=== PATIENT | female | born 1940 | race Caucasian/White ===

== ENCOUNTER 2024-08-05 17:01 | Emergency (ER) | payer MEDICARE, OTHER, SELFPAY ==
[2024-08-05 17:02] VITALS: BP 177/80
[2024-08-05 19:16] VITALS: BP 168/78
--- NOTE | 2024-08-05 22:42 | ED.MUSCINJ ---
HPI-Injury
General
Chief Complaint: Musculo-Skeletal Complaint
Source: patient
Exam Limitations: none
Time Seen by Provider: 08/05/24 18:24
Nursing documentation reviewed up to this point in time: agreed with
History of Present Illness-Injury
Is this injury a work related problem?: No
Is pt an associate of [facility]/[place]?: No
Initial Injury comments:
Patient states she tripped and fell. Denies hitting her head. COmplains of pain to her left wrist. Injury occurred just [employer]
Past History
Past History
ED Past Medical History: HTN, Hypercholesterolemia and Other (Mitral prolapse)
ED Past Surgical History: None
Social History
Tobacco: Non-smoker
Alcohol: None
Drug: None
Personal:
Living: with family
Review of Systems
Review of Systems
Allergies reviewed?: Yes
All Other Systems: ROS reviewed and negative except as documented in HPI and ROS
Constitutional: Reports no symptoms
Musculoskeletal: Reports joint pain (pain to left wrist)
Skin: Reports no symptoms
Neurological: Reports no symptoms
Psychiatric: Reports no symptoms
Musculoskeletal Injury Exam
Musculoskeletal Injury Exam
Left Wrist:
Pain with Movement?: Moderate
Tender to palpation?: Moderate
Soft tissue swelling?: Mild
External deformity and angulation?: None
Joint effusion?: None
Contusion?: None
Hematoma-local bleeding into tissue?: None
Strain- Sprain- Tear (Connective tissue injury)?: Moderate
Crepitus with movement?: No
Joint instability?: No
Malalignment/deformity?: No
Range of motion: Limited
Distal skin color and temperature: normal-warm & good color
Capillary Refill: normal
Normal distal neurovascular exam?: Yes
Peripheral Pulses: radial (left): 3+
Phy Exam
General Physical Exam
General Presentation: well appearing and no apparent distress
General age: appears stated age
General Skin: warm and dry
General Habitus: normal
General Mental: alert
Musculoskeletal Exam
Musculoskeletal Exam: neuro vasc intact
Skin Exam
Skin Exam: normal color, warm/dry and no rash
Psychiatric Exam
Psychiatric Exam: normal mood/affect
Injury Course
Orders/Labs/Results
Orders:
Orders
08/05/24 17:05
Wrist, Left 3 Views CR [CR Wrist - Left Min 3 Views] Urgent
Comment:
Reason For Exam: fall
08/05/24 18:56
Sling Left-Treatment ONCE
Volar Left-Treatment ONCE
*Radiology
Radiology exam reviewed: radiology read reviewed
*Pulse Oximetry
Patient hypoxic: no
*Critical Care Note
Total Time (30-74mins, 75-104mins- exclusive of procedures): Not Applicable
ED Attending Note
-
Portions of this chart may have been created with voice recognition software.� Occasional wrong word or��sound alike� substitutions may have occurred due to the inherent limitations of voice recognition software.
Discharge Plan
Departure
Patient Disposition: Home (Routine Discharge)
Date of Disposition: 08/05/24
Time of Disposition: 18:57
Patient with high blood pressure during this ER visit?: No
Condition: Good
Covid-19: Not Applicable
Discharge Problem:
Fracture of wrist
Instructions: How to Use a Shoulder Sling, Using Cold for Pain, Wrist fracture
Prescriptions:
New
hydrocodone-acetaminophen 5-325 mg tablet
1 tab PO Q4H PRN (Reason: Pain) Qty: 14 0RF
No Action
carvedilol 6.25 MG tablet
6.25 mg PO BID
enalapril maleate 10 MG tablet
10 mg PO DAILY
hydrochlorothiazide 25 MG tablet
25 mg PO DAILY
simvastatin 20 MG tablet
20 mg PO QPM
cholecalciferol (vitamin D3) 2,000 UNIT tablet
2,000 unit PO DAILY
Referrals:
Yuriy Esqueda MD [Active] - Call in 1-3 days for appt
Interventions
Interventions:
*Risk Screen - Suicide Last Done: 08/05/24 17:04
*General Assessment Last Done: 08/05/24 18:58
*Neglect/Abuse Screening Last Done: 08/05/24 17:04
ED- Fall Risk Assessment Last Done: 08/05/24 19:16
*ED COVID-19 Vaccine History Last Done: 08/05/24 18:57
*Nursing Disposition Last Done: 08/05/24 19:16
ED-Musculoskeletal Assessment Last Done: 08/05/24 18:58
Discharge Date and Time
Discharge Date/Time: 08/05/24 19:18
Print Language: YI
== END 2024-08-05 19:18 | disposition home or self-care (01) ==
LOC: EMR 17:01
PROVIDERS: EMERGENCY PHYSICIAN Emergency Medicine; FAMILY PHYSICIAN Pediatrics
DX: S52.592A Other fractures of lower end of left radius, initial encounter for closed fracture (principal); W01.0XXA Fall on same level from slipping, tripping and stumbling without subsequent striking against object, initial encounter; E78.00 Pure hypercholesterolemia, unspecified; I10 Essential (primary) hypertension
CPT/HCPCS: 29125; 99283; 73110

== ENCOUNTER 2024-11-04 15:06 | Emergency (ER) | payer MEDICARE, OTHER, SELFPAY ==
[2024-11-04 15:14] VITALS: BP 143/73
--- NOTE | 2024-11-04 17:14 | ED.GENMED ---
History of Present Illness
General
Chief Complaint: Urinary Symptoms
Time Seen by Provider: 11/04/24 17:06
History of Present Illness
History of Present Illness:
84-year-old female history of CAD, hypertension, hyperlipidemia, diabetes presenting with increased confusion, urinary frequency for the past few days. Family states that patient had a at home urine test that was positive for UTI. Family states
they discussed with patient's PCP office recommended come to the emergency department for further evaluation. Patient denies any fever or chills. Patient reports an episode of nausea and vomiting yesterday while she was at a . Patient
denies chest pain, shortness of breath or cough.
Past History
Past History
ED Past Medical History: HTN, Hypercholesterolemia and Other (Mitral prolapse)
ED Past Surgical History: None
Social History
Tobacco: Non-smoker
Alcohol: None
Drug: None
Personal:
Living: with family
Phy Exam
Physical Exam
Physical Exam:
General: Alert, no acute distress
Head: NCAT
Eyes: clear conjunctiva
Neck: supple
Cardiac: regular rate and rhythm, no murmur
Lungs: clear to auscultation bilaterally. No wheezes, rales, or rhonchi. Speaking full unlabored sentences. No respiratory distress.
Abdomen: soft, nondistended nontender. No rebound or guarding. No CVA tenderness bilaterally
MSK: no lower extremity edema bilaterally. No deformity
Skin: warm, dry
Neuro: Alert and oriented x3. no focal deficits
Course
Orders/Labs/Results
Orders:
Orders
11/04/24 17:24
CBC/With Diff [Complete Blood Count/With Diff] Urgent
CMP [Comprehensive Metabolic Panel] Urgent
Lactic Acid Urgent
UA Reflex to Culture [Urinalysis Reflex To Culture] Urgent
Date Specimen was Collected: 11/04/24
Time Specimen was Collected: 17:19
Urine Microscopic Reflex Cult Urgent
Urine Culture Urgent
MAGDA Source: U
Specimen Description:
Obtained by: Random
Date Specimen was Collected: 11/04/24
Time Specimen was Collected: 17:19
11/04/24 18:34
0.9% Sodium Chloride 1000 ml [Nss] 1,000 ml IV BOLUS
CefTRIAXone [Rocephin] 1,000 mg IV NOW STA
11/04/24 18:38
Potassium Chloride [KCl] 40 meq PO NOW STA
Abnormal Lab Results
11/04/24
17:24
RBC 2.67 L 10^6/uL
(4.20-5.40)
Hgb 7.8 L g/dL
(12.0-16.0)
Hct 24.0 L %
(37.0-47.0)
MCHC 32.5 L g/dL
(33.0-37.0)
Absolute Lymphs (auto) 0.9 L 10^3/uL
(1.2-3.4)
Absolute Monos (auto) 0.7 H 10^3/uL
(0.1-0.6)
Immature Gran % 0.6 H %
(0-0.5)
Lymphocytes % 13.3 L %
(20.5-51.1)
Monocytes % 10.4 H %
(1.7-9.3)
Sodium 132 L mmol/L
(135-145)
Potassium 3.0 L mmol/L
(3.5-5.1)
Chloride 92 L mmol/L
(98-107)
BUN 29 H mg/dl
(7-17)
Glucose 171 H mg/dl
(70-99)
Lactic Acid 2.6 H mmol/L
(0.7-2.0)
Total Bilirubin 1.6 H mg/dl
(0.2-1.3)
Ur Occult Blood Reflex 2+ A
(Negative)
Leukocyte Esterase Rfl 3+ A
(Negative)
Urine WBC (Reflex) 50-60 A /HPF
(0-5)
Urine Bacteria (Reflex) Few A
(Negative)
Urine Albumin (Reflex) 2+ A
(Neg - Trace)
11/04/24 17:24
11/04/24 17:24
Vital Signs
Initial and Last Documented VS:
Initial Vital Signs
Temp Pulse Resp BP Pulse Ox
97.5 F 97 16 143/73 99
11/04/24 15:14 11/04/24 15:14 11/04/24 15:14 11/04/24 15:14 11/04/24 15:14
Last Documented Vital Signs
Temp Pulse Resp BP Pulse Ox
97.5 F 90 18 172/68 97
11/04/24 15:14 11/04/24 19:27 11/04/24 19:27 11/04/24 19:27 11/04/24 19:27
MDM/Problems Addressed
Differential Diagnosis Includes:
UTI, [place], electrolyte abnormality
MDM/Problems Addressed:
Results reviewed. Hemoglobin 7.8 (baseline 10-12). BUN 29. Lactic acid 2.6. Creatinine within normal limits. Mild hypokalemia at 3.0. Discussed results with patient and family at bedside. Patient denies any black or bloody stools. Patient
denies chest pain, shortness of breath or dizziness. Family states that patient has had poor p.o. intake for months. Recommended rectal exam, patient agreeable. Rectal exam shows brown stool, guaiac negative. Suspect elevated lactic acid and BUN
from poor p.o. intake. Will give 1 L normal saline, replete potassium. Offered observation. Patient declines requesting be discharged home.
On reevaluation, hemodynamically stable. Stable for discharge with PCP and hematology follow up. Discussed return precautions. Pt and family expressed verbal understanding.
*Critical Care Note
Total Time (30-74mins, 75-104mins- exclusive of procedures): Not Applicable
ED Attending Note
-
Portions of this chart may have been created with voice recognition software.� Occasional wrong word or��sound alike� substitutions may have occurred due to the inherent limitations of voice recognition software.
Discharge Plan
Departure
Patient Disposition: Home (Routine Discharge)
Date of Disposition: 11/04/24
Time of Disposition: 20:25
Patient with high blood pressure during this ER visit?: Yes
Discharge Problem:
Acute UTI, Anemia
Instructions: Urinary Tract Infection, Adult (DC), Anemia overview, BLOOD PRESSURE
Prescriptions:
New
cephalexin 500 mg capsule
500 mg PO Q8H 7 Days Qty: 21 0RF
No Action
carvedilol 6.25 MG tablet
6.25 mg PO BID
enalapril maleate 10 MG tablet
10 mg PO DAILY
hydrochlorothiazide 25 MG tablet
25 mg PO DAILY
simvastatin 20 MG tablet
20 mg PO QPM
cholecalciferol (vitamin D3) 2,000 UNIT tablet
2,000 unit PO DAILY
hydrocodone-acetaminophen 5-325 mg tablet
1 tab PO Q4H PRN (Reason: Pain) Qty: 14 0RF
Referrals:
Jenifer Raza MD [Family Provider] -
Von Rizvi MD [Active] -
Activity Restrictions/Additional Instructions:
Follow-up with primary care doctor and hematology this week
Take Keflex 3 times a day for the next 7 days
Return to the emergency department for fever, persistent vomiting, shortness of breath, black/bloody stools or new/worsening symptoms
Interventions
Interventions:
*General Assessment Last Done: 11/04/24 16:45
*Nursing Disposition Last Done: 11/04/24 20:29
ED-Female Genitourinary Assessment Last Done: 11/04/24 16:45
Discharge Date and Time
Discharge Date/Time: 11/04/24 21:25
Print Language: SWEDISH
[2024-11-04 17:34] VITALS: BP 170/78
[2024-11-04 17:40] LABS: % Basophils 0.3 % (0-2); % Eosinophils 1.1 % (0-6); % Immature Granulocytes 0.6 % (0-0.5); % Lymphocytes 13.3 % (20.5-51.1); % Monocytes 10.4 % (1.7-9.3); % Neutrophils 74.3 % (42.2-75.2); Absolute Eosinophils 0.1 10^3/uL (0-0.7); Absolute Lymphocytes 0.9 10^3/uL (1.2-3.4); Absolute Monocytes 0.7 10^3/uL (0.1-0.6); Absolute Neutrophils 5.2 10^3/uL (1.4-6.5); Hemoglobin 7.8 g/dL (12.0-16.0); Mean Corp Hgb Conc. 32.5 g/dL (33.0-37.0); Mean Corpuscular Hgb 29.2 pg (27.0-31.0); Mean Corpuscular Volume 89.9 fL (81.0-99.0); Mean Platelet Volume 8.4 fL (7.4-10.4); Nucleated Red Blood Cells % 0 %; Platelet Count 176 10^3/uL (130-400); Red Blood Cell Count 2.67 10^6/uL (4.20-5.40); Red Cell Dist. Width 14.2 % (11.5-14.5); Urine Albumin 2+ (Neg - Trace); Urine Bilirubin Negative (Negative); Urine Character Slightly Cloudy (Clear); Urine Color Yellow; Urine Glucose Negative (Negative); Urine Ketone Negative (Negative); Urine Leukocyte 3+ (Negative); Urine Nitrite Negative (Negative); Urine Occult Blood 2+ (Negative); Urine Specific Gravity 1.015 (<1.030); Urine Urobilinogen 1+ (Neg - 1+)
[2024-11-04 17:51] LABS: Lactic Acid 2.6 mmol/L (0.7-2.0)
[2024-11-04 18:00] LABS: ALT (SGPT) 13 U/L (0-35); AST (SGOT) 20 U/L (14-36); Alkaline Phosphatase 107 U/L (38-126); Blood Urea Nitrogen 29 mg/dl (7-17); Calcium 9.2 mg/dl (8.4-10.2); Carbon Dioxide 27 mmol/L (22-30); Chloride 92 mmol/L (98-107); Glucose 171 mg/dl (70-99); Sodium 132 mmol/L (135-145); Total Bilirubin 1.6 mg/dl (0.2-1.3); Total Protein 6.3 g/dl (6.3-8.2); eGFR > 60.00
[2024-11-04 18:05] LABS: Urine Squamous Cell 0-2 /LPF (Few)
[2024-11-04 18:06] LABS: Urine Bacteria Few (Negative); Urine Red Blood Cell 0-2 /HPF (0-2); Urine White Cell 50-60 /HPF (0-5)
[2024-11-04] MEDS: KCL 40 MEQ PO (18:53)
[2024-11-04] MEDS: NSS 1000 IV (18:53)
[2024-11-04] MEDS: ROCEPHIN 1000 MG IV (18:54)
[2024-11-04 19:27] VITALS: BP 172/68
== END 2024-11-04 21:25 | disposition home or self-care (01) ==
LOC: EMR 15:06
PROVIDERS: EMERGENCY PHYSICIAN Emergency Medicine; FAMILY PHYSICIAN Family Medicine
DX: N39.0 Urinary tract infection, site not specified (principal); D64.9 Anemia, unspecified; E87.6 Hypokalemia; E78.00 Pure hypercholesterolemia, unspecified; I10 Essential (primary) hypertension; E11.9 Type 2 diabetes mellitus without complications; I25.10 Atherosclerotic heart disease of native coronary artery without angina pectoris
CPT/HCPCS: 99284; 96374; 96361; 80053; 81003; 81015; 83605; 85025; 87077; 87086; 87186

== ENCOUNTER → 2024-11-20 14:32 | Outpatient (REF) | payer MEDICARE, OTHER, SELFPAY | LOC: RAD 14:32 | PROVIDERS: ATTENDING PHYSICIAN Family Medicine | DX: D50.9 Iron deficiency anemia, unspecified (principal); R11.0 Nausea | CPT/HCPCS: 74177; Q9967 ==

== ENCOUNTER 2024-12-14 21:50 | Inpatient (IN) | payer MEDICARE, OTHER, SELFPAY ==
[2024-12-14 18:33] VITALS: BP 161/84
[2024-12-14 18:57] LABS: % Basophils 0.1 % (0-2); % Immature Granulocytes 0.6 % (0-0.5); % Lymphocytes 3.4 % (20.5-51.1); % Monocytes 2.5 % (1.7-9.3); % Neutrophils 93.4 % (42.2-75.2); Absolute Immature Granulocytes 0.1 10^3/uL (0-0.05); Absolute Lymphocytes 0.5 10^3/uL (1.2-3.4); Absolute Monocytes 0.4 10^3/uL (0.1-0.6); Absolute Neutrophils 13.1 10^3/uL (1.4-6.5); Hematocrit 35.5 % (37.0-47.0); Hemoglobin 12.3 g/dL (12.0-16.0); Mean Corp Hgb Conc. 34.6 g/dL (33.0-37.0); Mean Corpuscular Hgb 29.9 pg (27.0-31.0); Mean Corpuscular Volume 86.4 fL (81.0-99.0); Mean Platelet Volume 8.8 fL (7.4-10.4); Nucleated Red Blood Cells % 0 %; Platelet Count 155 10^3/uL (130-400); Red Blood Cell Count 4.11 10^6/uL (4.20-5.40); Red Cell Dist. Width 13.8 % (11.5-14.5); White Blood Cell Count 14.1 10^3/uL (4.8-10.8)
[2024-12-14 19:07] LABS: Urine Albumin 1+ (Neg - Trace); Urine Bilirubin Negative (Negative); Urine Character Clear (Clear); Urine Color Yellow; Urine Glucose 4+ (Negative); Urine Ketone Negative (Negative); Urine Leukocyte Negative (Negative); Urine Nitrite Negative (Negative); Urine Occult Blood 4+ (Negative); Urine Urobilinogen Negative (Neg - 1+)
[2024-12-14 19:16] LABS: Blood Urea Nitrogen 33 mg/dl (7-17); Calcium 9.3 mg/dl (8.4-10.2); Carbon Dioxide 16 mmol/L (22-30); Chloride 81 mmol/L (98-107); Sodium 119 mmol/L (135-145); Urine Squamous Cell 0-2 /LPF (Few); eGFR 55.21
[2024-12-14 19:18] LABS: Urine Bacteria Moderate (Negative); Urine White Cell 80-90 /HPF (0-5)
[2024-12-14 19:35] LABS: Glucose 1247 mg/dl (70-99)
[2024-12-14 20:04] VITALS: BP 148/81
[2024-12-14 20:21] VITALS: BMI 16.9
--- NOTE | 2024-12-14 20:24 | ED.GENMED ---
History of Present Illness
<Janelle Russell NP - Last Filed: 12/16/24 17:06>
General
Chief Complaint: Musculo-Skeletal Complaint
Source: patient, spouse and family
Exam Limitations: none
Time Seen by Provider: 12/14/24 19:53
Nursing documentation reviewed up to this point in time: agreed with
History of Present Illness
History of Present Illness:
Patient to ED wtih complaint of worsening muscle cramps involving hands. Spouse reports symptoms started last PM. He also reports increased thirst and urination. Family states she had blood work at the end of october which revealed hemaglobin of
7.8 Placed on Prednisne 50mg daily. No other changes to her medications. Seen by PCP this week for urine symptoms. Neg for UTI at that time. She returned to PCP today for evaluation of cramping to her hands and was sent to ED for eval.
Past History
<Janelle Russell NP - Last Filed: 12/16/24 17:06>
Past History
ED Past Medical History: HTN, Hypercholesterolemia and Other (Mitral prolapse)
ED Past Surgical History: None
Social History
Tobacco: Non-smoker
Alcohol: None
Drug: None
Personal:
Living: with family
Review of Systems
<Janelle Russell NP - Last Filed: 12/16/24 17:06>
Review of Systems
Allergies reviewed?: Yes
All Other Systems: ROS reviewed and negative except as documented in HPI and ROS
Constitutional: Reports no symptoms
EENT: Reports no symptoms
Respiratory: Reports no symptoms
Cardiac: Reports no symptoms
ABD/GI: Reports no symptoms
: Reports frequency and urgency
Musculoskeletal: Reports other (cramping of both hands)
Skin: Reports no symptoms
Neurological: Reports weakness
Psychiatric: Reports no symptoms
Phy Exam
<Janelle Russell WIRE BOUND BOX MACHINE OPERATOR - Last Filed: 12/16/24 17:06>
General Physical Exam
General Presentation: moderate distress
General age: appears stated age
General Skin: warm and dry
General Habitus: normal
General Mental: alert
General Hydration: dry mucous membranes and poor skin turgor
Cardiovascular Exam
Cardiovascular Exam: regular rate/rhythm and no edema
Pulmonary Exam
Pulmonary Exam: lungs clear and no respiratory distress
Neurological Exam
Neurological Exam: alert, oriented x3, CN II-XII intact, no sensory deficits and speech normal
Musculoskeletal Exam
Musculoskeletal Exam: full ROM and other (muscle cramping to bilateral hands)
Skin Exam
Skin Exam: normal color, warm/dry and no rash
Psychiatric Exam
Psychiatric Exam: normal mood/affect
Course
<Janelle Russell WIRE BOUND BOX MACHINE OPERATOR - Last Filed: 12/16/24 17:06>
Orders/Labs/Results
Orders:
Orders
12/14/24 18:23
Wrist, Right 3 Views [CR Wrist - Right Min 3 Views] Urgent
Comment:
Reason For Exam: pain
12/14/24 18:50
B-Hydroxybutyrate Urgent
Comment: ADD ON
Basic Metabolic Panel Urgent
Complete Blood Count/With Diff Urgent
Urinalysis Reflex To Culture Urgent
Date Specimen was Collected: 12/14/24
Time Specimen was Collected: 18:40
Urine Microscopic Reflex Cult Urgent
Urine Culture Urgent
MAGDA Source: U
Specimen Description:
Date Specimen was Collected: 12/14/24
Time Specimen was Collected: 18:40
12/14/24 20:15
0.9% Sodium Chloride 1000 ml [Nss] 1,000 ml IV BOLUS
CR Chest Portable - 1 View Urgent
Comment:
Reason For Exam: dka icu
Reason Study Needs to be Portable: Patient Unstable
12/14/24 20:23
Bedside Glucose- Treatment Q1H
IV Insert/Care/Rem.- Treatment PRN
12/14/24 20:34
Cefepime HCl [Maxipime] 1,000 mg IV NOW STA
12/14/24 20:46
Comprehensive Metabolic Panel Stat
Comment: ADD ON
12/14/24 21:30
Admit/Transfer Patient As Directed
Co-Sign Provider:
Level of Care: Inpatient admission
Assign to:: ICU
Physician / Group: Michel Lozano
Diagnosis: hyperglycemia, UTI
Reason for Hospitalization: hyperglycemia, UTI
Expected length of stay greater than two midnights?: Yes
ELOS- Estimated Length of Stay in days: 3
I certify the patient meets the requirements for IP care: Yes
PRN Pain Medication Management As Directed
May give lesser potent ordered pain med per pt: Yes
preference::
Protocol:: Medication orders for pain may be administered in a
manner that supports deferring to patient preference
when the pt is:
- Requesting an ordered lesser potent pain medication.
Least to most potent pain medications are defined
as: acetaminophen < NSAID < tramadol < opioids
(morphine, oxycodone, hydromorphone).
- Requesting a lesser dose of the same medication IF
ORDERED.
- Requesting a less intrusive route of administration
if both routes are prescribed by the provider (PO <
IV).
12/14/24 21:32
Code Status As Directed
Resuscitation Status: Full Code
12/14/24 22:00
Flush (0.9% Sodium Chloride) [Flush (Nss)] See Dose Instructions IV PER PROTOCOL
12/14/24 22:42
Atorvastatin [Lipitor] 40 mg PO HS
Carvedilol [Coreg] 6.25 mg PO HS
KCl 20 Meq/0.9%Sodchl 1000 ml [NSS with KCL 20 MEQ] 20 meq in 1,000 ml IV 150 mls/hr
Nortriptyline [Pamelor] 20 mg PO HS
Reg Insulin 100 Units/100 ml [Novolin R Insulin Infusion] 100 units in 100 ml IV PER PROTOCOL
Currently infusing. Continue current dose and titrate:: Yes
12/14/24 22:42
Diabetes Management by Nurse Practitioner Routine
Consulting Provider: Rachell Serrano
Was provider already notified?: No
Reason for Consult: Insulin Recommendation
Date consulting provider notified: 12/15/24
Time consulting provider notified: 07:22
Notified:: Provider
Activity As Directed
Activity Level: Out of Bed-Early Mobility
Bedside Glucose Monitoring As Directed
Frequency: AC&HS
Intake/ Output As Directed
Frequency: Per unit guidelines
Notify MD As Directed
Notify physician if: Nurse to contact provider when glucose reaches 250 to obtain orders for D5 0.45 NaCl
Vital Signs As Directed
Frequency: Per unit guidelines
Weight As Directed
Frequency: Once
Comment: on admission
DX Deep Vein Thrombosis Video Routine
12/14/24 23:18
Basic Metabolic Panel Q2H
12/15/24 00:00
Heparin 5,000 units SC Q8
12/15/24 01:00
Basic Metabolic Panel Q2H
12/15/24 05:21
Complete Blood Count/No Diff IN AM
12/15/24 08:00
Amlodipine [Norvasc] 5 mg PO DAILY
Aspirin Low Dose EC [Aspir Low (Enteric Coated)] 81 mg PO DAILY
Cholecalciferol (Vitamin D3) [VITAMIN D3 (cholecalciferol)] 25 mcg PO DAILY
Cyanocobalamin [Vitamin B-12] 1,000 mcg PO DAILY
Furosemide [Lasix] 20 mg PO MoWeFr@0800
Olmesartan Medoxomil [Benicar] 20 mg PO DAILY
12/15/24 12:00
Prednisone [Deltasone] 40 mg PO NOON
12/15/24 20:00
Cefepime HCl [Maxipime] 500 mg IV Q24H
Abnormal Lab Results
12/14/24 12/14/24 12/14/24
18:50 20:46 21:00
WBC 14.1 H 10^3/uL
(4.8-10.8)
RBC 4.11 L 10^6/uL
(4.20-5.40)
Hct 35.5 L %
(37.0-47.0)
Abs Immat Gran (auto) 0.1 H 10^3/uL
(0-0.05)
Absolute Neuts (auto) 13.1 H 10^3/uL
(1.4-6.5)
Absolute Lymphs (auto) 0.5 L 10^3/uL
(1.2-3.4)
Immature Gran % 0.6 H %
(0-0.5)
Neutrophils % 93.4 H %
(42.2-75.2)
Lymphocytes % 3.4 L %
(20.5-51.1)
Sodium 119 L* mmol/L 118 L* mmol/L
(135-145) (135-145)
Chloride 81 L mmol/L 83 L mmol/L
(98-107) (98-107)
Carbon Dioxide 16 L mmol/L 20 L mmol/L
(22-30) (22-30)
BUN 33 H mg/dl 34 H mg/dl
(7-17) (7-17)
Glucose 1247 H* mg/dl 1141 H* mg/dl
(70-99) (70-99)
Total Bilirubin 1.8 H mg/dl
(0.2-1.3)
Alkaline Phosphatase 129 H U/L
(38-126)
Ur Occult Blood Reflex 4+ A
(Negative)
Urine RBC 7-10 A /HPF
(0-2)
Urine WBC (Reflex) 80-90 A /HPF
(0-5)
Urine Bacteria (Reflex) Moderate A
(Negative)
Urine Glucose 4+ A
(Negative)
Urine Albumin (Reflex) 1+ A
(Neg - Trace)
B-Hydroxybutyrate 0.73 H mmol/L
(0.02-0.27)
POC Glucose > 600 H* mg/dl
(70-99)
12/14/24
21:39
WBC
RBC
Hct
Abs Immat Gran (auto)
Absolute Neuts (auto)
Absolute Lymphs (auto)
Immature Gran %
Neutrophils %
Lymphocytes %
Sodium
Chloride
Carbon Dioxide
BUN
Glucose
Total Bilirubin
Alkaline Phosphatase
Ur Occult Blood Reflex
Urine RBC
Urine WBC (Reflex)
Urine Bacteria (Reflex)
Urine Glucose
Urine Albumin (Reflex)
B-Hydroxybutyrate
POC Glucose > 600 H* mg/dl
(70-99)
12/14/24 18:50
12/14/24 20:54
Vital Signs
Initial and Last Documented VS:
Initial Vital Signs
Temp Pulse Resp BP Pulse Ox
97.5 F 89 18 161/84 98
12/14/24 18:33 12/14/24 18:33 12/14/24 18:33 12/14/24 18:33 12/14/24 18:33
Last Documented Vital Signs
Temp Pulse Resp BP Pulse Ox
97.6 F 87 17 108/51 96
12/16/24 14:45 12/16/24 14:45 12/16/24 14:45 12/16/24 14:45 12/16/24 14:45
<Holger Reid, DO - Last Filed: 12/14/24 20:28>
Orders/Labs/Results
Orders:
Orders
12/14/24 18:23
Wrist, Right 3 Views [CR Wrist - Right Min 3 Views] Urgent
Comment:
Reason For Exam: pain
12/14/24 18:50
B-Hydroxybutyrate Urgent
Comment: ADD ON
Basic Metabolic Panel Urgent
Complete Blood Count/With Diff Urgent
Urinalysis Reflex To Culture Urgent
Date Specimen was Collected: 12/14/24
Time Specimen was Collected: 18:40
Urine Microscopic Reflex Cult Urgent
Urine Culture Urgent
MAGDA Source: U
Specimen Description:
Date Specimen was Collected: 12/14/24
Time Specimen was Collected: 18:40
12/14/24 20:15
0.9% Sodium Chloride 1000 ml [Nss] 1,000 ml IV BOLUS
CR Chest Portable - 1 View Urgent
Comment:
Reason For Exam: dka icu
Reason Study Needs to be Portable: Patient Unstable
12/14/24 20:23
Bedside Glucose- Treatment Q1H
IV Insert/Care/Rem.- Treatment PRN
12/14/24 20:34
Cefepime HCl [Maxipime] 1,000 mg IV NOW STA
12/14/24 20:46
Comprehensive Metabolic Panel Stat
Comment: ADD ON
12/14/24 21:30
Admit/Transfer Patient As Directed
Co-Sign Provider:
Level of Care: Inpatient admission
Assign to:: ICU
Physician / Group: Michel Lozano
Diagnosis: hyperglycemia, UTI
Reason for Hospitalization: hyperglycemia, UTI
Expected length of stay greater than two midnights?: Yes
ELOS- Estimated Length of Stay in days: 3
I certify the patient meets the requirements for IP care: Yes
PRN Pain Medication Management As Directed
May give lesser potent ordered pain med per pt: Yes
preference::
Protocol:: Medication orders for pain may be administered in a
manner that supports deferring to patient preference
when the pt is:
- Requesting an ordered lesser potent pain medication.
Least to most potent pain medications are defined
as: acetaminophen < NSAID < tramadol < opioids
(morphine, oxycodone, hydromorphone).
- Requesting a lesser dose of the same medication IF
ORDERED.
- Requesting a less intrusive route of administration
if both routes are prescribed by the provider (PO <
IV).
12/14/24 21:32
Code Status As Directed
Resuscitation Status: Full Code
12/14/24 22:00
Flush (0.9% Sodium Chloride) [Flush (Nss)] See Dose Instructions IV PER PROTOCOL
12/14/24 22:42
Atorvastatin [Lipitor] 40 mg PO HS
Carvedilol [Coreg] 6.25 mg PO HS
KCl 20 Meq/0.9%Sodchl 1000 ml [NSS with KCL 20 MEQ] 20 meq in 1,000 ml IV 150 mls/hr
Nortriptyline [Pamelor] 20 mg PO HS
Reg Insulin 100 Units/100 ml [Novolin R Insulin Infusion] 100 units in 100 ml IV PER PROTOCOL
Currently infusing. Continue current dose and titrate:: Yes
12/14/24 22:42
Diabetes Management by Nurse Practitioner Routine
Consulting Provider: Rachell Serrano
Was provider already notified?: No
Reason for Consult: Insulin Recommendation
Date consulting provider notified: 12/15/24
Time consulting provider notified: 07:22
Notified:: Provider
Activity As Directed
Activity Level: Out of Bed-Early Mobility
Bedside Glucose Monitoring As Directed
Frequency: AC&HS
Intake/ Output As Directed
Frequency: Per unit guidelines
Notify MD As Directed
Notify physician if: Nurse to contact provider when glucose reaches 250 to obtain orders for D5 0.45 NaCl
Vital Signs As Directed
Frequency: Per unit guidelines
Weight As Directed
Frequency: Once
Comment: on admission
DX Deep Vein Thrombosis Video Routine
12/14/24 23:18
Basic Metabolic Panel Q2H
12/15/24 00:00
Heparin 5,000 units SC Q8
12/15/24 01:00
Basic Metabolic Panel Q2H
12/15/24 05:21
Complete Blood Count/No Diff IN AM
12/15/24 08:00
Amlodipine [Norvasc] 5 mg PO DAILY
Aspirin Low Dose EC [Aspir Low (Enteric Coated)] 81 mg PO DAILY
Cholecalciferol (Vitamin D3) [VITAMIN D3 (cholecalciferol)] 25 mcg PO DAILY
Cyanocobalamin [Vitamin B-12] 1,000 mcg PO DAILY
Furosemide [Lasix] 20 mg PO MoWeFr@0800
Olmesartan Medoxomil [Benicar] 20 mg PO DAILY
12/15/24 12:00
Prednisone [Deltasone] 40 mg PO NOON
12/15/24 20:00
Cefepime HCl [Maxipime] 500 mg IV Q24H
Abnormal Lab Results
12/14/24 12/14/24 12/14/24
18:50 20:46 21:00
WBC 14.1 H 10^3/uL
(4.8-10.8)
RBC 4.11 L 10^6/uL
(4.20-5.40)
Hct 35.5 L %
(37.0-47.0)
Abs Immat Gran (auto) 0.1 H 10^3/uL
(0-0.05)
Absolute Neuts (auto) 13.1 H 10^3/uL
(1.4-6.5)
Absolute Lymphs (auto) 0.5 L 10^3/uL
(1.2-3.4)
Immature Gran % 0.6 H %
(0-0.5)
Neutrophils % 93.4 H %
(42.2-75.2)
Lymphocytes % 3.4 L %
(20.5-51.1)
Sodium 119 L* mmol/L 118 L* mmol/L
(135-145) (135-145)
Chloride 81 L mmol/L 83 L mmol/L
(98-107) (98-107)
Carbon Dioxide 16 L mmol/L 20 L mmol/L
(22-30) (22-30)
BUN 33 H mg/dl 34 H mg/dl
(7-17) (7-17)
Glucose 1247 H* mg/dl 1141 H* mg/dl
(70-99) (70-99)
Total Bilirubin 1.8 H mg/dl
(0.2-1.3)
Alkaline Phosphatase 129 H U/L
(38-126)
Ur Occult Blood Reflex 4+ A
(Negative)
Urine RBC 7-10 A /HPF
(0-2)
Urine WBC (Reflex) 80-90 A /HPF
(0-5)
Urine Bacteria (Reflex) Moderate A
(Negative)
Urine Glucose 4+ A
(Negative)
Urine Albumin (Reflex) 1+ A
(Neg - Trace)
B-Hydroxybutyrate 0.73 H mmol/L
(0.02-0.27)
POC Glucose > 600 H* mg/dl
(70-99)
12/14/24
21:39
WBC
RBC
Hct
Abs Immat Gran (auto)
Absolute Neuts (auto)
Absolute Lymphs (auto)
Immature Gran %
Neutrophils %
Lymphocytes %
Sodium
Chloride
Carbon Dioxide
BUN
Glucose
Total Bilirubin
Alkaline Phosphatase
Ur Occult Blood Reflex
Urine RBC
Urine WBC (Reflex)
Urine Bacteria (Reflex)
Urine Glucose
Urine Albumin (Reflex)
B-Hydroxybutyrate
POC Glucose > 600 H* mg/dl
(70-99)
12/14/24 18:50
12/14/24 20:54
Vital Signs
Initial and Last Documented VS:
Initial Vital Signs
Temp Pulse Resp BP Pulse Ox
97.5 F 89 18 161/84 98
12/14/24 18:33 12/14/24 18:33 12/14/24 18:33 12/14/24 18:33 12/14/24 18:33
Last Documented Vital Signs
Temp Pulse Resp BP Pulse Ox
97.6 F 87 17 108/51 96
12/16/24 14:45 12/16/24 14:45 12/16/24 14:45 12/16/24 14:45 12/16/24 14:45
<Holger Reid, DO - Last Filed: 12/14/24 20:28>
*Critical Care Note
Total Time (30-74mins, 75-104mins- exclusive of procedures): 32
<Janelle Russell NP - Last Filed: 12/16/24 17:06>
Update Note
Update Note:
Labs reviwed. Na 119, glucose 1247. Currently taking prednisone 50mg daily for report of low Hgb. Hgb tonight 12.7. History of NIDDM, takes metfomin daily. Placed on Insulin infusion in ED. UA results reviewed, +UTI. Antibiotic started in ED.
Case discussed with Dr. Reid who also evaluated this patient. SHe will be admitted to hospitalist service.
ED Attending Note
<Janelle Russell NP - Last Filed: 12/16/24 17:06>
-
Portions of this chart may have been created with voice recognition software.� Occasional wrong word or��sound alike� substitutions may have occurred due to the inherent limitations of voice recognition software.
<Holger Reid, - Last Filed: 12/14/24 20:28>
ED Attending Note
Patient seen and examined by attending physician: Yes
I performed the substantive portion of visit, reviewed & personally made and approve the management plan that is documented in note by myself or DELL.: Yes
ED Attending Note:
Seen with WIRE BOUND BOX MACHINE OPERATOR examined independently 84-year-old female type II diabetic on metformin, prednisone 50 [address] day [address] Bustillos for anemia presents with fatigue polydipsia polyuria looks to have significant hyperglycemia here with relatively normal mental
status abnormal sodium-in the setting of hyperglycemia
Plan will be urinalysis beta hydroxybutyrate chest x-ray IV fluids IV insulin chest x-ray will require admission
Discharge Plan
Departure
Patient Disposition: Admit
Date of Disposition: 12/14/24
Time of Disposition: 20:37
Presentation/result/management discussed w/ accepting MD/DO: Hospitalist
Condition: Fair
Discharge Problem:
Acute hyperglycemia, Acute hyponatremia, Acute UTI
Interventions
Interventions:
*Risk Screen - Suicide Last Done: 12/14/24 23:32
*General Assessment Last Done: 12/14/24 20:28
*Neglect/Abuse Screening Last Done: 12/14/24 20:00
*ED- Fall Risk Assessment Last Done: 12/14/24 20:28
*ED COVID-19 Vaccine History Last Done: 12/14/24 20:28
*Nursing Disposition Last Done: 12/14/24 22:45
ED-Musculoskeletal Assessment Last Done: 12/14/24 21:11
ED- Neurological Assessment Last Done: 12/14/24 20:28
ED-Skin Assessment Last Done: 12/14/24 20:00
Discharge Date and Time
Discharge Date/Time: 12/14/24 22:45
[2024-12-14] MEDS: NSS 1000 IV (20:36)
--- NOTE | 2024-12-14 20:36 | HPS.HSE ---
Family Physician
-
Family Physician: Jenifer Raza
Chief Complaint
-
worsening muscle cramps
History of Present Illness
Patient is an 84-year-old female with past medical history significant for hypertension, hyperlipidemia, DM II, ASCVD and iron deficiency anemia who presented to [facility] ED for evaluation of worsening muscle cramps especially in hands. Patient went to
primary care provider today for muscle cramping especially in the bilateral hands. Patient spouse and daughter at bedside to assist with HPI. Patient has had increased thirst and urination for approximately 1 week as well, UA negative last week for
UTI. Patient started seeing Dr. Bustillos for anemia and she was started on prednisone 50mg daily. Denies any fevers, chills, cough, shortness of breath, nausea, vomiting, constipation or diarrhea.
Medical History
Past Medical History
Past Medical History: Reports Other
Additional Past Medical History:
hypertension
hyperlipidemia
DM II
ASCVD
iron deficiency anemia
Past Surgical History: Reports Other
Additional Past Surgical History:
cataract surgery
hemorrhoid surgery
Social History
Tobacco: Non-smoker
Alcohol: Occasional
Drug: None
Personal:
Living: With Family
Family History
Family History: Not pertinent
Allergies / Home Medications
Allergies reflects when Allergies were last updated in [employer].
Home Medications with original date entered in [employer]
Allergy/Medication List:
Allergies
Allergy/AdvReac Type Severity Reaction Status Date / Time
tramadol HCl [From Ultracet] Allergy Nausea Verified 12/14/24 18:32
Home Medications
carvedilol 6.25 mg tablet 6.25 mg PO HS 11/14/10
amlodipine 5 mg tablet 5 mg PO DAILY 12/14/24
aspirin 81 mg tablet,delayed release 81 mg PO DAILY 12/14/24
atorvastatin 40 mg tablet 40 mg PO HS 12/14/24
cholecalciferol (vitamin D3) 25 mcg (1,000 unit) tablet (Vitamin D3) 25 mcg PO DAILY 12/14/24
cyanocobalamin (vitamin B-12) 1,000 mcg tablet 1,000 mcg PO DAILY 12/14/24
furosemide 20 mg tablet 20 mg PO MOWEFR 12/14/24
metformin 500 mg tablet 500 mg PO DAILY 12/14/24
nortriptyline 10 mg capsule 20 mg PO HS 12/14/24
olmesartan 20 mg tablet 20 mg PO DAILY 12/14/24
prednisone 20 mg tablet 50 mg PO NOON 12/14/24
Review of Systems
-
History Source: Patient
Constitutional: Reports Other (bilateral hand cramping )
EENT: Reports No Symptoms
Respiratory: Reports No Symptoms
Cardiac: Reports No Symptoms
Abdomen/GI: Reports No Symptoms
: Reports Frequency and Urgency
Musculoskeletal: Reports Other (muscle cramping, bilateral hand cramping )
Skin: Reports No Symptoms
Neurological: Reports No Symptoms
Endocrine: Reports No Symptoms
Hematologic/Lymphatic: Reports No Symptoms
Psych: Reports No Symptoms
Physical Exam
Vital Signs
Vital Signs
Temp Pulse Resp BP Pulse Ox
97.5 F 89 18 161/84 98
12/14/24 18:33 12/14/24 18:33 12/14/24 18:33 12/14/24 18:33 12/14/24 18:33
Physical Exam
General: Well Developed, Well Nourished, No Apparent Distress, Comfortable, Conversant and Appears Chronically Ill
HEENT: NormoCephalic, Moist mucous membranes, Atraumatic, [place] Conjunctivae, Nose Appears Normal and Ears Appear Normal
Respiratory: Clear and Non Labored Respirations
Cardiac: S1/S2 and Regular Rhythm
Breast: Deferred by me
GI: Soft, Non Tender, Non Distended and Normal Bowel Sounds
Rectal: Deferred by Provider
Genito-urinary: Clear Urine
Musculoskeletal: No Clubbing, No Cyanosis and No Edema
Skin: Warm and IV/Catheter Site
Neuro: Awake, Alert, AO x 3 and Nonfocal/grossly intact
Psych: Calm and Intact Judgment/Insight
Laboratory Results
-
12/14/24 18:50
Laboratory Results
Total Bilirubin Cancelled 12/14/24 18:50
AST Cancelled 12/14/24 18:50
ALT Cancelled 12/14/24 18:50
Alkaline Phosphatase Cancelled 12/14/24 18:50
Data Reviewed
-
Diagnostic Radiology: Report Reviewed by me (R wrist: No acute osseous abnormality. Mild degenerative changes of the radiocarpal joint with chondrocalcinosis.)
Lab Data: Labs Reviewed by me (WBC 14.1, Neut 93.4, Na+119, Glucose 1247)
Impression/Plan
-
IMPRESSION/PLAN:
#hyperglycemia
glucose 1247
likely 2/2 daily prednisone 50mg for anemia
- Admit to ICU
- IV insulin gtt
- Consult Diabetic SOFTWARE CONFIGURATION MANAGER
- Consult Hematology
#DM II
A1c 5.9 (11/08/2024)
- hold metformin
- monitor sugars
- Consult Diabetic SOFTWARE CONFIGURATION MANAGER
#hyponatremia
Na+ 119
- corrected to 137 in setting of hyperglycemia
- monitor BMP
#urinary tract infection
WBC 14.1, Neut 83.4
UA: indicative of UTI
Urine Cx: pending
- IV antibiotics
- supportive care
#hypertension
- continue amlodipine, carvedilol, furosemide and olmesartan
#hyperlipidemia
- continue atorvastatin
#ASCVD
- continue aspirin
#iron deficiency anemia
hgb 12.3, hct 35.5
- decrease prednisone to 40mg daily
- Consult hematology
Code status: full code
DVT prophylaxis: lovenox sq
[2024-12-14] MEDS: MAXIPIME 1000 MG IV (20:48)
[2024-12-14 21:00] VITALS: BP 167/75
[2024-12-14 21:00] LABS: B-Hydroxybutyrate 0.73 mmol/L (0.02-0.27)
[2024-12-14 21:03] LABS: Glucose - Point of Care > 600 mg/dl (70-99)
--- NOTE | 2024-12-14 21:03 | W.PN.UPDATE ---
Update Note
Progress Note Update
Patient seen in conjunction with therapy. I agree the findings on history and physical. I concur with assessment and plan unless stated otherwise.
Briefly, this is a 84-year-old female with past medical history of wiw-wslkoqx-vdnkoxjxu diabetes, hypertension and hyperlipidemia who presents to the emergency department from her PMD with symptoms concerning for electrolyte abnormalities. She
apparently developed severe hand tremors and rigidity today. Patient has been having polyuria for at least 1 week and was seen by PMD 1 week ago with a negative urinalysis for infection. She also has polydipsia.
She was in the ED with a UTI and anemia in the beginning of her October. Hemoglobin was 7.8. 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 She had a repeat anemia blood work 2 days ago
with pending results. Hemoglobin level, up to 12.3 here today.
Here in the emergency department blood pressure was 160/84 with a pulse of 89 she is satting 98% on room air. She has blood glucose that was 1247. Abnormalities in electrolytes include a sodium of 119 corrected to 137, K is pending bicarb is 16
chloride 81. BUN is hide 1 creatinine of 1.0. She has a white count of 14, hemoglobin 12.3 and platelet 155. UA is positive for bacteria, WBCs and RBCs. Negative for nitrites and leukocyte esterase. She has no dysuria, pelvic pain or flank
pain. She has been afebrile.
Assessment and plan
Patient with HHNK likely secondary to prednisone. Her last A1c was less than 6 about 2 months ago and prednisone was started after November 04. The plan is to reduce the prednisone to 40 if hemoglobin had improved. She is hemodynamically stable.
- ICU
- Will start insulin drip protocol,
-IV fluids per protocol with appropriate potassium supplementation
-Corrected sodium is 137, no indication for hyponatremia management at this time
- Continue IV fluids for now pending potassium, supplement with PO and IV potassium
- titrate prednisone to 40
- consult with hematology to see if it can be tapered off or discontinued
- u/a is positive for bacteria and wbc, no nit, or le, check urine cultures, IV ceftriaxone for now
DVT PPX - lovenox sq
Code status - Full Code
[2024-12-14 21:24] LABS: ALT (SGPT) 23 U/L (0-35); AST (SGOT) 21 U/L (14-36); Albumin 4.4 g/dl (3.5-5.0); Alkaline Phosphatase 129 U/L (38-126); Blood Urea Nitrogen 34 mg/dl (7-17); Calcium 8.9 mg/dl (8.4-10.2); Carbon Dioxide 20 mmol/L (22-30); Chloride 83 mmol/L (98-107); Estimated Creatinine Clearance 26 ml/min; Potassium 4.5 mmol/L (3.5-5.1); Total Bilirubin 1.8 mg/dl (0.2-1.3); Total Protein 6.4 g/dl (6.3-8.2); eGFR 55.21
[2024-12-14 21:32] LABS: Glucose 1141 mg/dl (70-99); Sodium 118 mmol/L (135-145)
[2024-12-14 21:40] LABS: Glucose - Point of Care > 600 mg/dl (70-99)
[2024-12-14 22:00] VITALS: BP 142/70
[2024-12-14] MEDS: FLUSH (NSS) 1 FLUSH IV (22:15)
[2024-12-14] MEDS: NOVOLIN R INSULIN INFUSION 100 IV (22:16)
[2024-12-14 23:18] LABS: Glucose - Point of Care > 600 mg/dl (70-99)
[2024-12-14] MEDS: NSS with KCL 20 MEQ 1000 IV (23:27)
[2024-12-14 23:28] VITALS: BP 149/78
[2024-12-14 23:56] LABS: Blood Urea Nitrogen 31 mg/dl (7-17); Calcium 9.3 mg/dl (8.4-10.2); Carbon Dioxide 19 mmol/L (22-30); Chloride 90 mmol/L (98-107); Estimated Creatinine Clearance 26 ml/min; Potassium 3.9 mmol/L (3.5-5.1); Sodium 127 mmol/L (135-145); eGFR 55.21
[2024-12-14] MEDS: LIPITOR 40 MG PO (23:59)
[2024-12-14] MEDS: HEPARIN 5000 UNITS SC (23:59)
[2024-12-14] MEDS: PAMELOR 20 MG PO (23:59)
[2024-12-14] MEDS: COREG 6.25 MG PO (23:59)
[2024-12-15] VITALS (20 sets, daily range): BP systolic 98–156; BP diastolic 46–71; PULSE 86; O2SAT 97; BMI 16.4
--- NOTE | 2024-12-15 | PTCARENOTE ---
Pt admit to ICU from ED ~2300. Insulin gtt infusing at 4.06u/hr on handoff. Accucheck on admission RR Hi, blood draw completed. St.1 pressure ulcer noted on sacracl area/coccyx. Sacral foam placed. Informed pt and family member of importance of
turning and pressure ulcer prevention. Pt slightly tachypneic POX96% RA. B/l hand tremors. Pt oriented, but occasionally confused. Frequent urination. Daughter electing to stay the night.
[2024-12-15 00:14] LABS: Glucose - Point of Care > 600 mg/dl (70-99)
[2024-12-15 00:15] LABS: Glucose 777 mg/dl (70-99)
[2024-12-15 01:27] LABS: Blood Urea Nitrogen 29 mg/dl (7-17); Calcium 9.1 mg/dl (8.4-10.2); Carbon Dioxide 21 mmol/L (22-30); Chloride 94 mmol/L (98-107); Estimated Creatinine Clearance 29 ml/min; Glucose 566 mg/dl (70-99); Potassium 3.6 mmol/L (3.5-5.1); Sodium 129 mmol/L (135-145); eGFR > 60.00
--- NOTE | 2024-12-15 01:52 | PTCARENOTE ---
Reassessed. Hand tremors b/l resolved. Pt still slightly clenching hands into fists, but improvement noted. Insulin gtt continuing to infuse per protocol.
[2024-12-15 02:15] LABS: Glucose - Point of Care 461 mg/dl (70-99)
[2024-12-15 02:52] LABS: Glucose 395 mg/dl (70-99)
[2024-12-15 03:11] LABS: Glucose - Point of Care 378 mg/dl (70-99)
[2024-12-15 04:20] LABS: Glucose - Point of Care 265 mg/dl (70-99)
[2024-12-15 05:16] LABS: Glucose - Point of Care 209 mg/dl (70-99)
[2024-12-15 05:37] LABS: Hematocrit 31.9 % (37.0-47.0); Hemoglobin 11.3 g/dL (12.0-16.0); Mean Corp Hgb Conc. 35.4 g/dL (33.0-37.0); Mean Corpuscular Hgb 29.3 pg (27.0-31.0); Mean Corpuscular Volume 82.6 fL (81.0-99.0); Mean Platelet Volume 8.4 fL (7.4-10.4); Platelet Count 115 10^3/uL (130-400); Red Blood Cell Count 3.86 10^6/uL (4.20-5.40); Red Cell Dist. Width 13.2 % (11.5-14.5); White Blood Cell Count 14.7 10^3/uL (4.8-10.8)
[2024-12-15] MEDS: D5/0.45%NSS with KCL 20 MEQ 1000 IV (05:54)
[2024-12-15] MEDS: NSS with KCL 20 MEQ IV (05:55)
[2024-12-15 06:03] LABS: Blood Urea Nitrogen 29 mg/dl (7-17); Calcium 9.1 mg/dl (8.4-10.2); Carbon Dioxide 23 mmol/L (22-30); Chloride 103 mmol/L (98-107); Estimated Creatinine Clearance 29 ml/min; Glucose 170 mg/dl (70-99); Phosphorus 2.2 mg/dl (2.5-4.5); Potassium 3.8 mmol/L (3.5-5.1); Sodium 136 mmol/L (135-145); eGFR > 60.00
[2024-12-15 06:11] LABS: Glucose - Point of Care 155 mg/dl (70-99)
[2024-12-15 07:11] LABS: Glucose - Point of Care 132 mg/dl (70-99)
--- NOTE | 2024-12-15 08:02 | CON.INTV ---
Addendum entered and electronically signed by Marcin Zazueta MD 12/15/24 14:54:
Additional information to be added to assessment/plan:
Oncology consulted given she is on prednisone as an outpatient which may have contributed to her development of hyperglycemia and thus HHNK. Unclear if she needs to continue with prednisone or if any outpatient blood work has returned by now;
daughter said that they were going to possibly start tapering down the prednisone based on repeat labs Day did 2 days ago.
Consult PT/OT
Original Note:
Consultation
Consultation Request
Date/Time Consultation Requested: 12/14/20242243
Date/Time Consultation Performed: 12/15/2024754
Requesting Provider: AVELINA Key
Performing Provider: Dr. Zazueta
Reason for Consultation: HHNK
Medical History
-
Chief Complaint: Cramping with closed fist
History of Present Illness:
84-year-old female with a past medical history of DM type II, hypertension, hyperlipidemia, mild cognitive impairment, history of fall (2013) c/b small cerebral hemorrhage + fractured pelvis/ribs, CAD, GERD, mitral valve prolapse and chronic anemia
with concern for autoimmune etiology on outpatient prednisone who presented from her family practice due to motor dysfunction involving her hand. She was having difficulty letting go of her user acceptance tester after holding anything, and was at her primary
doctor's office due to a possible hand cramp/muscle spasm, and there was concern for hypocalcemia in the setting of excessive cola intake (drinks a case a day). Patient was getting weighed and was unable to remove her hand without her
physically opening it. Patient's been urinating more as per the . In the ER she was afebrile to 97.5 �F, pulse rate 89, respiratory rate 18, BP 161/84 and saturating 98% on room air. Labs showed leukocytosis to 14.1, Hb 12.3, sodium 119,
glucose 1247, serum bicarbonate level 16, urinalysis showed no urine ketones, with 80�90 urine WBC and moderate bacteria. Beta-hydroxybutyrate was mildly elevated at 0.73. Urine culture was collected; CXR showed no acute cardiopulmonary process.
She also endorsed right wrist pain and XR of her wrist showed no acute osseous abnormality. In the ER she was given cefepime, 1 L NS 0.9%, started on insulin drip and then admitted to the ICU for further care. Central Sterilization Technician services consulted for
additional management/recommendations.
Pt seen and evaluated this AM. Family members at bedside including her , Kvng, her daughter, Manda, and her grandson, Ari. She feels well currently; says that the right-hand cramping from yesterday has markedly improved. She denies any
burning with urination, painful urination, urinary discharge or lower abdominal pain. She currently denies chest pain, SOB, GERBER, nausea, fevers or chills. Currently on insulin gtt at 1 unit/hr; also on D5-1/2NS-20mEqKCl at 150cc/hr. Remains on
cefepime for possible UTI. Vitals this AM show HR 95, SpO2 98% on room air and BP 156/62.
PMHx: DM type II, hypertension, hyperlipidemia, aortic atherosclerosis, mild cognitive impairment, fall (2013) c/b small cerebral hemorrhage + fractured pelvis and ribs, osteoporosis, CAD, anemia with possible autoimmune component (followed by
hematology through [facility]), MV prolapse, GERD, hemorrhoids
PSHx: Cataract surgery, hemorrhoidectomy, cardiac cath
Past Medical History
Past Medical History: Other (Above as per HPI)
Past Surgical History: Other (Above as per HPI)
Social History
Tobacco: Non-smoker
Alcohol: None
Drug: None
Personal: (: Kvng)
Living: With Family
Family History
Family History: Reviewed & Not Pertinent
Allergies / Home Medications
Allergies
Allergy/AdvReac Type Severity Reaction Status Date / Time
tramadol HCl [From Ultracet] Allergy Nausea Verified 12/14/24 18:32
Home Medications
�Medication �Instructions �Recorded �Confirmed �Last Taken �Type
carvedilol 6.25 mg tablet 6.25 mg PO HS 11/14/10 12/14/24 12/13/24 History
amlodipine 5 mg tablet 5 mg PO DAILY 12/14/24 12/14/24 12/14/24 History
aspirin 81 mg tablet,delayed 81 mg PO DAILY 12/14/24 12/14/24 12/14/24 History
release
atorvastatin 40 mg tablet 40 mg PO HS 12/14/24 12/14/24 12/13/24 History
cholecalciferol (vitamin D3) 25 25 mcg PO DAILY 12/14/24 12/14/24 12/14/24 History
mcg (1,000 unit) tablet (Vitamin
D3)
cyanocobalamin (vitamin B-12) 1,000 mcg PO DAILY 12/14/24 12/14/24 12/14/24 History
1,000 mcg tablet
furosemide 20 mg tablet 20 mg PO MOWEFR 12/14/24 12/14/24 12/13/24 History
metformin 500 mg tablet 500 mg PO DAILY 12/14/24 12/14/24 12/14/24 History
nortriptyline 10 mg capsule 20 mg PO HS 12/14/24 12/14/24 12/13/24 History
olmesartan 20 mg tablet 20 mg PO DAILY 12/14/24 12/14/24 12/14/24 History
prednisone 20 mg tablet 50 mg PO NOON 12/14/24 12/14/24 12/14/24 History
Review of Systems
-
History Source: Patient
All other systems: Negative unless noted
Vitals / Labs / Diagnostic Testing
Vital Signs
Temp Pulse Resp BP Pulse Ox
98.4 F 74 27 125/71 98
12/15/24 07:25 12/15/24 08:35 12/15/24 08:33 12/15/24 08:35 12/15/24 08:33
Lab Data
12/15/24 05:21
Diagnostic Testing:
Physical Exam
-
HEENT: Normocephalic and Anicteric
Cardiovascular: S1/S2 and Peripheral Edema (Trace lower extremity edema bilaterally)
Respiratory: Wheeze (negative), Rales (negative), Rhonchi (negative) and Non-Labored Respirations
GI: Soft, Non Distended, Non Tender and Normal Bowel Sounds
Neurology: AO x 3 and Tremors (negative)
Skin: Warm and Dry
General: Respiratory Distress (negative), Comfortable, Fever (negative) and Chills (negative)
Assessment
-
Assessment: 84-year-old female with a past medical history of DM type II, hypertension, hyperlipidemia, mild cognitive impairment, history of fall (2013) c/b small cerebral hemorrhage + fractured pelvis/ribs, CAD, GERD, mitral valve prolapse and
chronic anemia with concern for autoimmune etiology on outpatient prednisone who presented from her family practice due to motor dysfunction involving her hand. She was having difficulty letting go of her user acceptance tester after holding anything, and was at her
primary doctor's office due to a possible hand cramp/muscle spasm, and there was concern for hypocalcemia in the setting of excessive cola intake (drinks a case a day). Patient was getting weighed and was unable to remove her hand without her
physically opening it. Patient's been urinating more as per the . In the ER she was afebrile to 97.5 �F, pulse rate 89, respiratory rate 18, BP 161/84 and saturating 98% on room air. Labs showed leukocytosis to 14.1, Hb 12.3,
sodium 119, glucose 1247, serum bicarbonate level 16, urinalysis showed no urine ketones, with 80�90 urine WBC and moderate bacteria. Beta-hydroxybutyrate was mildly elevated at 0.73. Urine culture was collected; CXR showed no acute
cardiopulmonary process. She also endorsed right wrist pain and XR of her wrist showed no acute osseous abnormality. In the ER she was given cefepime, 1 L NS 0.9%, started on insulin drip and then admitted to the ICU for further care. Central Sterilization Technician
services consulted for additional management/recommendations.
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
(followed by hematology through [facility]), MV prolapse, GERD, hemorrhoids
Impression:
#DM type II c/b HHNK
#Pseudohyponatremia due to above
#Hypophosphatemia
#Metabolic acidosis with increased anion gap likely due to lactic acidosis in the setting of severe hyperglycemia with HHNK
#Leukocytosis
#Chronic anemia (initial Hb 12.3 likely due to hemoconcentration in the setting of urinary frequency from glucosuria; UA was 4+ glucose) with suspected autoimmune etiology on outpatient prednisone
#Asymptomatic bacteriuria with a history of UTI due to E. coli (prior UCx on 11/04/2024)
#History of hypertension
#History of hyperlipidemia
#GERD
#History of hemorrhoids s/p hemorrhoidectomy
Plan:
- Patient's presentation is consistent with HHNK and not DKA given there are no urine ketones and BOHB was <3, and if it was DKA her serum HCO3 would be <5 for BG >1000 and she'd be in a coma
- Continue insulin drip and avoid hypoglycemia; avoid hypokalemia
- q1hr fingersticks and will wean off insulin drip by bridging with 20 units of Lantus (overlap by 2 hours), and diabetic CORPORATE ACCOUNT EXECUTIVE consulted as well as engineering drawings checker
- Continue D5-1/2NS-20mEq KCl --> once off insulin gtt then stop this drip at same time; replete Mg >2 and PO4>3
- Once off insulin gtt, goal BG will be 140-180 and then start AC ISS moderate resistance; would also start basal-bolus SQ insulin dosing - will defer to diabetic CORPORATE ACCOUNT EXECUTIVE
- She was drinking many bottles of Coca-Cola a day, which per the was >10�12 bottles a day, and also not checking her sugars ---> this needs to stop immediately, which I told her
- She may need to start insulin upon discharge, she at least needs to start checking her FS before meals and at nighttime
- Her urinalysis did show concerning findings for a UTI with an elevated urine WBC and moderate bacteria but she remains asymptomatic; considering her white count is elevated, continue empiric antibiotics but okay to narrow from cefepime to
ceftriaxone, and follow-up urine culture (shows NGTD)
- Would give a short Abx course (3-5 days)
- Maintain SpO2 >90-94%; currently on room air breathing comfortably
- Incentive spirometer encouraged 10x per hour for at least 4 hrs a day
- prn nebulized bronchodilators - not currently bronchospastic
- Maintain MAP>65
- Replete electrolytes with K>4, Mg>2
- Trend H/H and transfuse if needed to keep Hb>7g/dL; keep plt>20k, unless there is concern for bleeding then keep plt>50k
- DVT ppx: Ok to change to LMWH
Continue ICU level care while she remains on insulin drip. Once she is bridged off insulin drip with Lantus, will downgrade out of ICU to [facility] at that time. Once she is downgraded, Central Sterilization Technician/Pulmonary service will sign off at that time.
Thank you for allowing us to be involved in the care of this patient; please call back if there are any additional questions or concerns.
Critical care statement: A total of 37 minutes of critical care time was provided for this patient today. This includes management of unstable vital signs, evaluation of the patient at bedside, reviewing the patient's pertinent medical records
including radiographs, microbiology, laboratory evaluations, and discussion with primary team, consultants, pharmacy, nutrition, physical therapy, case management, charge nurse, critical care nursing, and respiratory therapy.
[2024-12-15 08:15] LABS: Glucose - Point of Care 163 mg/dl (70-99)
[2024-12-15] MEDS: VITAMIN B-12 1000 MCG PO (08:34)
[2024-12-15] MEDS: HEPARIN 5000 UNITS SC (08:34)
[2024-12-15] MEDS: VITAMIN D3 (cholecalciferol) 25 MCG PO (08:34)
[2024-12-15] MEDS: ASPIR LOW (ENTERIC COATED) 81 MG PO (08:34)
[2024-12-15] MEDS: NORVASC 5 MG PO (08:35)
[2024-12-15] MEDS: LASIX 20 MG PO (08:35)
[2024-12-15] MEDS: BENICAR 20 MG PO (08:35)
[2024-12-15 09:23] LABS: Glucose - Point of Care 147 mg/dl (70-99)
--- NOTE | 2024-12-15 09:30 | PTCARENOTE ---
Rec'd care of patient at 0700. Patient resting comfortably in bed. Alert and answering orientation questions appropriately. Pleasantly confused at times. NSR with pvcs on tele. Trace edema in b/l LE. Palpable pulses. Lung sounds cta. Pulse ox 98-99%
on RA. +BS. Tolerating clears. Assisted to BSC to void and have a BM. Impulsive with urgency/stress incontinence. Fall risk reinforced. Bed alarm on and functioning. Daughter at bedside. [facility] protocol maintained.
[2024-12-15 10:09] LABS: Glucose - Point of Care 206 mg/dl (70-99)
[2024-12-15] MEDS: LANTUS 0.2 UNITS SC (10:09)
--- NOTE | 2024-12-15 10:12 | PTCARENOTE ---
20 units Lantus administered as ordered. Insulin protocol maintained. Insulin gtt and IVFs to be discontinued 2hrs post administration of Lantus.
--- NOTE | 2024-12-15 10:24 | CM ---
CM following re: discharge planning.
Discussed in Rounds, reviewed pt's chart, met with pt and daughter Rachell at bedside.
Pt is an 84 year old female, admitted with primary dx of hyperglycemia. PMH includes: hypertension, hyperlipidemia, DM II, ASCVD and iron deficiency anemia.
Pt reports she lives with 2SH, 1 step to enter, has 5 supportive children. 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 No DME, VN or SNF history.
PCP: Jenifer Centeno
Pharmacy: [facility]
D/C plan: home with possibly VN services if indicated. Family to transport at discharge.
CM will follow with discharge plan updates as hospitalization progresses.
[2024-12-15 10:40] LABS: Blood Urea Nitrogen 28 mg/dl (7-17); Calcium 8.9 mg/dl (8.4-10.2); Carbon Dioxide 24 mmol/L (22-30); Chloride 103 mmol/L (98-107); Estimated Creatinine Clearance 32 ml/min; Glucose 136 mg/dl (70-99); Potassium 4.1 mmol/L (3.5-5.1); Sodium 134 mmol/L (135-145); eGFR > 60.00
[2024-12-15 11:22] LABS: Glucose - Point of Care 192 mg/dl (70-99)
[2024-12-15] MEDS: DELTASONE 40 MG PO (11:22)
[2024-12-15] MEDS: NEUTRA-PHOS POWDER PACKET 500 MG PO (11:22)
--- NOTE | 2024-12-15 12:15 | PTCARENOTE ---
Insulin gtt and IVFs discontinued.
[2024-12-15 12:37] LABS: Glucose - Point of Care 152 mg/dl (70-99)
[2024-12-15 13:31] LABS: Glucose - Point of Care 127 mg/dl (70-99)
--- NOTE | 2024-12-15 13:44 | PTCARENOTE ---
obgyn nurse at bedside.
--- NOTE | 2024-12-15 14:02 | PN.DE.MGMTRT ---
Insulin Management
- -
12/15/2024 Diabetes Management Consult
Patient admitted 12/14 with muscle cramps, HHNK glucose 1247. PMH HTN, HCL and diabetes. Prior to admission was taking metformin 500 mg daily. Last A1C reported by daughter was 11/08/24, 5.6%. CR .8, eGFR > 60.
Patient is awake alert and oriented but confused at times, and daughter at bedside answering most questions. and daughter state that patient was started on prednisone 2 weeks ago. States she has been drinking 8 to 12 bottles of
pepsi per day.
Patient was on insulin infusion, transitioned at 12 noon with 20 units lantus.
Glucose at 1pm 127.
Will continue daily lantus 15 units in AM with 500 mg metformin BID until prednisone taper and glucose stable. Discussed with family.
clinical trial educator to instruct patient and family on meter and insulin administration.
Will follow.
Diabetes History
- -
Type of Diabetes: 2
Pre-Admission Diabetes Regimen
12/14/24 12/14/24 12/14/24
18:50 20:30 20:46
Creatinine 1.0 Cancelled 1.0
12/14/24 12/14/24 12/15/24
20:54 23:18 01:00
Creatinine Cancelled 1.0 0.9
12/15/24 12/15/24 12/15/24
05:21 08:50 12:00
Creatinine 0.9 0.8 Cancelled
12/15/24 12/15/24
16:00 20:00
Creatinine Cancelled Cancelled
Insulin Pump Settings
IP Diabetes Regimen
12/14/24 12/14/24 12/14/24
18:50 20:30 20:46
Glucose 1247 H* Cancelled 1141 H*
POC Glucose
12/14/24 12/14/24 12/14/24
20:54 21:00 21:39
Glucose Cancelled
POC Glucose > 600 H* > 600 H*
12/14/24 12/14/24 12/15/24
23:06 23:18 00:02
Glucose 777 H*
POC Glucose > 600 H* > 600 H*
12/15/24 12/15/24 12/15/24
01:00 02:04 02:10
Glucose 566 H* 395 H
POC Glucose 461 H*
12/15/24 12/15/24 12/15/24
02:59 04:08 05:04
Glucose
POC Glucose 378 H 265 H 209 H
12/15/24 12/15/24 12/15/24
05:21 05:59 06:59
Glucose 170 H
POC Glucose 155 H 132 H
12/15/24 12/15/24 12/15/24
08:03 08:50 09:09
Glucose 136 H
POC Glucose 163 H 147 H
12/15/24 12/15/24 12/15/24
09:57 11:11 12:00
Glucose Cancelled
POC Glucose 206 H 192 H
12/15/24 12/15/24 12/15/24
12:24 13:19 16:00
Glucose Cancelled
POC Glucose 152 H 127 H
12/15/24
20:00
Glucose Cancelled
POC Glucose
Meal type: Breakfast
Meal type: Dinner
Amount consumed: 100%
Patient Education
[2024-12-15] MEDS: ROCEPHIN 1000 MG IV (14:34)
[2024-12-15] MEDS: STERILE WATER FOR INJECTION 10 ML IV (14:34)
[2024-12-15 14:39] LABS: Glucose - Point of Care 157 mg/dl (70-99)
--- NOTE | 2024-12-15 14:53 | PTCARENOTE ---
Patient downgraded to M/S level. Resting comfortably in bed. VSS. clinical educator providing teaching to patient's and daughter at bedside.
--- NOTE | 2024-12-15 15:30 | PTCARENOTE ---
Addendum entered by Caroline Lizarraga RN 12/18/24 14:46:
12/18/2024 DIABETES EDUCATION
I met with Day, her Kvng, and daughter Fauzia. Per Fauzia, Day will not be able to give her own injections or check glucose levels. Reviewed and reinforced with Kvng and Fauzia proper insulin injection technique and storage, Fauzia and Kvng
completed a successful repeat demonstration. I reinforced and reviewed glucose monitoring with Contour Next kit, Kvng completed successful glucose check. Provided another sample kit to member, as they are unsure where is kit from last week. Both
Kvng and Fauzia verbalized understanding. Plan is for d/c today, they are looking into home health to assist with insulin injection and SMBG. Written material provided.
Original Note:
12/15/2024 DIABETES EDUCATION
I met with Day, her and daughter to review diabetes management. Per daughter, she was diagnosed with DM2 several years ago and was managed with Metformin. Admitted with BS over 1000, on prednisone and patient admits to drinking numerous
regular sodas every day. Patient states that her glucose is high because of the holidays, and her daughter reminded her that it is no longer the holidays. She admits to losing a lot of weight recently, poor appetite, does not drink much water and
in addition to soda also eats a lot of sweets.
I educated on physiology of T2D, organ complications, managing with medications, monitoring BG, nutrition, activity, sleep and managing stress
I reinforced signs of hyperglycemia, hypoglycemia; BS parameters and recommended HbA1c goals, written material provided.
She currently does not check glucose at home. Her daughter and do not feel she can perform a glucose check on her own. I educated and reviewed using Contour Next glucometer with patient, her and daughter. Her acknowledged
understanding with a self demonstration of checking BS.
I educated and demonstrated on insulin injection technique, timing, and storage. Discussed short and long acting insulin; onset/peak/duration, demonstration insulin injection technique and her Kvng provided 2 repeat demonstrations. I
provided pen tips to RN, and to encourage Day's to assist with insulin injections with RN supervision. Discussed normal target glucose ranges and a monitoring schedule as directed upon discharge. At their request, provided information
on CGM. They will discuss with her PCP after discharge. Daughter admits to needing care at home for Day, they will discuss with her PCP.
Encouraged patient to follow up with her PCP for post d/c appointment and to monitor medication and blood glucose levels. Provided list of endocrinologists if desired, to contact insurance company to verify in network status. Information
provided on the outpatient DSME program. Patient verbalized understanding.
--- NOTE | 2024-12-15 15:33 | W.PN.HOSP.TC ---
Today's Communication/Plan
-
Downgrade from ICU
Assessment / Plan
Assessment / Plan
Impression:
84-year-old female with past medical history of csa-[id number] diabetes, hypertension and hyperlipidemia who presents to the emergency department with symptoms concerning for electrolyte abnormalities. She apparently developed severe hand
tremors and rigidity today. She was on prednisone for anemia.
Admitted overnight with HHNK, glucose level 1247
Started on insulin drip and currently on subcu insulin.
Blood sugar improved.
Assessment/plan:
HHNKNK/history of type II akj-[id number]-[id number] diabetes
glucose 1247 on present
likely 2/2 daily prednisone 50mg for anemia
Admitted to the ICU.
Started insulin drip.
Blood sugar improved.
Currently on subcu insulin.
Seen by diabetic nurse practitioner and started on Lantus 15 unit daily along with metformin
Weaning prednisone
Hyponatremia
Pseudohyponatremia secondary to severe hypertension
118 in the ER, corrected to 137 in setting of hyperglycemia
Sodium 134 after correction of glucose
UTI
WBC 14.1, Neut 83.4
UA: indicative of UTI
Urine Cx: pending
- IV antibiotics
- supportive care
Hypertension
- continue amlodipine, carvedilol, furosemide and olmesartan
Hyperlipidemia
- continue atorvastatin
Coronary artery disease
- continue aspirin
Iron deficiency anemia
hgb 12.3, hct 35.5
- decrease prednisone to 40mg daily
- Consult hematology
CODE STATUS: Full code
DVT prophylaxis: Lovenox
Diet: Regular diet
Total time spent on today's encounter was 75 minutes which included time spent in counseling the patient/family regarding diagnosis and treatment plan as listed above, goals of care, and symptom management. Case was discussed with nursing staff,
specialists, and care coordinators/case management. All labs and imaging personally reviewed by me. Remainder the time spent in detailed review of previous records, lab data, imaging, and other medical provider documentation.
Anticipated Discharge: 24 - 48 hours
Subjective/Interval History
-
Date of Service: December 15, 2024
Patient admitted overnight with HHNK, glucose level 1247
Started on insulin drip and currently on subcu insulin.
Patient seen and examined at bedside, denies any chest pain or shortness of breath, no abdominal pain, no nausea, no vomiting, no diarrhea or constipation.
Discussed with daughter at bedside
Objective Data
-
Labs:
Laboratory Results
12/15/24 12/15/24 12/15/24
05:21 08:50 12:00
WBC 14.7 H
Hgb 11.3 L
Hct 31.9 L
Plt Count 115 L D
Sodium 136 134 L Cancelled
Potassium 3.8 4.1 Cancelled
Chloride 103 103 Cancelled
Carbon Dioxide 23 24 Cancelled
BUN 29 H 28 H Cancelled
Creatinine 0.9 0.8 Cancelled
Glucose 170 H 136 H Cancelled
Calcium 9.1 8.9 Cancelled
12/15/24 12/15/24
16:00 20:00
WBC
Hgb
Hct
Plt Count
Sodium Cancelled Cancelled
Potassium Cancelled Cancelled
Chloride Cancelled Cancelled
Carbon Dioxide Cancelled Cancelled
BUN Cancelled Cancelled
Creatinine Cancelled Cancelled
Glucose Cancelled Cancelled
Calcium Cancelled Cancelled
Vital Signs:
Vital Signs
Temp Pulse Resp BP Pulse Ox
98.1 F 77 23 122/58 97
12/15/24 15:21 12/15/24 14:00 12/15/24 14:00 12/15/24 14:00 12/15/24 10:30
I&O
12/14/24 12/15/24 12/16/24
06:59 06:59 06:59
Intake Total 1445 / 1596 1239 / 1239
Balance 1445 / 1596 1239 / 1239
Physical Exam
-
General: Well Developed, Well Nourished, No Apparent Distress and Comfortable
HEENT: Normocephalic, Atraumatic, Moist Mucous Membranes, No Ptosis, PERRLA and Nose Appears Normal
Respiratory: Clear to Auscultation and Non Labored Respirations
Cardiac: Regular Rhythm and S1/S2
Breast: Deferred by me
GI: Soft, Nontender, Nondistended and Normal Bowel Sounds
Genito-urinary: No Costovertebral Tender
Musculoskeletal: No Clubbing, No Cyanosis and No Edema
Skin: Warm
Neuro: Awake, Alert, Oriented, AO x 3 and No Motor Deficits
Psych: Calm
Data Reviewed
-
Diagnostic Radiology: Image personally visualized and interpreted and Report Reviewed by me
CT Scan: Image personally visualized and interpreted and Report Reviewed by me
Ultrasound: Image personally visualized and interpreted and Report Reviewed by me
MRI: Image personally visualized and interpreted and Report Reviewed by me
Medical Tests (Nuc Med, Echo etc): Image personally visualized and interpreted and Report Reviewed by me
Labs: Labs Reviewed by me
Old Records: Reviewed
--- NOTE | 2024-12-15 16:20 | PTCARENOTE ---
Patient ambulatory in [facility] with PT. OOB in chair. Chair alarm on and functioning.
[2024-12-15] MEDS: NOVOLOG FLEXPEN-MODERATE RESISTANCE 5 UNITS SC (16:46)
[2024-12-15] MEDS: GLUCOPHAGE 500 MG PO (16:46)
[2024-12-15 16:59] LABS: Glucose - Point of Care 250 mg/dl (70-99)
[2024-12-15] MEDS: LOVENOX 30 MG SC (17:18)
--- NOTE | 2024-12-15 17:42 | PTCARENOTE ---
Patient more confused and agitated. Arguing with at bedside. Frequently trying to stand and get out of chair causing chair alarm to go off. Unsteady on feet. RN entering room multiple times to intervene. Reorientation and reminders of fall
risk, chair alarm, call coon use provided. Per , 'she has Alzheimer's'. Patient more receptive to RN reorienting. Offered diversional activities, toileting, returning to bed. Patient opting to stay in chair.
--- NOTE | 2024-12-15 18:00 | CON.ONC ---
Consultation
-
Date Consultation Requested: 12/15/24
Date Consultation Performed: 12/15/24
Requesting Provider: Chuy Shay
Performing Provider: merly
Reason for Consultation: prednisone therapy of AIHA
Impression
Impression
AIHA
hyperglycemia w/ hyponatremia
Plan
Plan
check haptoglobin-- would decrease prednisone by 10mg q 48 hours to 20mg/day-- check haptoglobin-- daily CBC--will follow
Patient History
Past-Medical/Surgical History
Patient�is�an�84�year�old�female�with�acquired�autoimmune�hemolytic�anemia�(AIHA).�Patient�was�noted�to�have�a�undetectable
haptoglobin�<10,�reticulocyte�count�of�3.4�and�positive�direct�Zahra�with�elevated�LDH�=�349.�Patient�was�started�on�prednisone 50�mg�daily�with�weekly�CBC�and�slow�prednisone�taper over�4�to�6�weeks.
Recommended�they�continue�weekly�CBC�testing�with�instructions�to�decrease�the�prednisone�dose�by�10�mg�once�a�week�(after HgB�>�11)�with�follow�up�in�1�month. She was subsequently admitted with urinary frequency/ mm cramping and thirst for which
labs noted blood glucose 1141, serum NA 118 with HGB 11-12gm/dl
Patient Medication
�Medication �Instructions �Recorded �Confirmed �Last Taken �Type
carvedilol 6.25 mg tablet 6.25 mg PO HS Blood Pressure 11/14/10 12/14/24 12/13/24 History
amlodipine 5 mg tablet 5 mg PO DAILY Blood Pressure 12/14/24 12/14/24 12/14/24 History
aspirin 81 mg tablet,delayed 81 mg PO DAILY Blood Clot 12/14/24 12/14/24 12/14/24 History
release Prevention/Tx
atorvastatin 40 mg tablet 40 mg PO HS High Cholesterol 12/14/24 12/14/24 12/13/24 History
cholecalciferol (vitamin D3) 25 25 mcg PO DAILY Supplement 12/14/24 12/14/24 12/14/24 History
mcg (1,000 unit) tablet (Vitamin
D3)
cyanocobalamin (vitamin B-12) 1,000 mcg PO DAILY Supplement 12/14/24 12/14/24 12/14/24 History
1,000 mcg tablet
furosemide 20 mg tablet 20 mg PO MOWEFR Fluid 12/14/24 12/14/24 12/13/24 History
Retention/Swelling
metformin 500 mg tablet 500 mg PO DAILY Diabetes 12/14/24 12/14/24 12/14/24 History
nortriptyline 10 mg capsule 20 mg PO HS Mental Health/Anxiety 12/14/24 12/14/24 12/13/24 History
olmesartan 20 mg tablet 20 mg PO DAILY Blood Pressure 12/14/24 12/14/24 12/14/24 History
prednisone 20 mg tablet 50 mg PO NOON Anti-Inflammatory 12/14/24 12/14/24 12/14/24 History
Active Medications
Generic Name Dose Route Start Last Admin
Trade Name Freq PRN Reason Stop Dose Admin
Amlodipine Besylate 5 mg 12/15/24 08:00 12/15/24 08:35
Amlodipine 5 Mg Tablet PO 01/12/25 07:59 5 mg
DAILY SHAYNE Administration
Aspirin 81 mg 12/15/24 08:00 12/15/24 08:34
Aspirin 81 Mg (Enteric Coated) Tablet PO 01/12/25 07:59 81 mg
DAILY SHAYNE Administration
Atorvastatin Calcium 40 mg 12/14/24 22:42 12/14/24 23:59
Atorvastatin (Lipitor) 40 Mg Tablet PO 01/11/25 22:41 40 mg
HS SHAYNE Administration
Carvedilol 6.25 mg 12/14/24 22:42 12/14/24 23:59
Carvedilol 6.25 Mg Tablet PO 01/11/25 22:41 6.25 mg
HS SHAYNE Administration
Ceftriaxone Sodium 1,000 mg 12/15/24 14:00 12/15/24 14:34
Ceftriaxone 1000 Mg / 10 Ml Vial IV 1,000 mg
Q24H SHAYNE Administration
Cholecalciferol 25 mcg 12/15/24 08:00 12/15/24 08:34
Cholecalciferol (Vitamin D3) 25 Mcg Tablet (1,000 Units) PO 01/12/25 07:59 25 mcg
DAILY SHAYNE Administration
Cyanocobalamin 1,000 mcg 12/15/24 08:00 12/15/24 08:34
Cyanocobalamin 1,000 Mcg Tablet PO 01/12/25 07:59 1,000 mcg
DAILY SHAYNE Administration
Enoxaparin Sodium 30 mg 12/15/24 18:00 12/15/24 17:18
Enoxaparin Sodium 30 Mg/0.3 Ml Syringe SC 01/12/25 17:59 30 mg
QPM SHAYNE Administration
Furosemide 20 mg 12/15/24 08:00 12/15/24 08:35
Furosemide 20 Mg Tablet PO 01/12/25 07:59 20 mg
MoWeFr@0800 SHAYNE Administration
Insulin Glargine 15 units/ 0.15 mls @ 0 mls/hr 12/16/24 08:00
Device SC 01/13/25 07:59
DAILY SHAYNE
As Directed
Insulin Aspart 0 units 12/15/24 16:30 12/15/24 16:46
Insulin Aspart Moderate Resistance 300 Units/3 Ml Pen.Injctr SC 01/12/25 16:29 5 units
AC SHAYNE Administration
Protocol
Metformin HCl 500 mg 12/15/24 17:00 12/15/24 16:46
Metformin 500 Mg Regular Release Tablet PO 01/12/25 16:59 500 mg
BID@0800,1700 SHAYNE Administration
Nortriptyline HCl 20 mg 12/14/24 22:42 12/14/24 23:59
Nortriptyline 10 Mg Capsule PO 01/11/25 22:41 20 mg
HS SHAYNE Administration
Olmesartan 20 mg 12/15/24 08:00 12/15/24 08:35
Olmesartan 20 Mg Tablet PO 01/12/25 07:59 20 mg
DAILY SHAYNE Administration
Prednisone 40 mg 12/15/24 12:00 12/15/24 11:22
Prednisone 20 Mg Tablet PO 01/12/25 11:59 40 mg
NOON SHAYNE Administration
Sodium Chloride 0 flush 12/14/24 22:00 12/14/24 22:15
Sodium Chloride 0.9% (Flush) Syringe IV 01/11/25 21:59 1 flush
PER PROTOCOL SHAYNE Administration
Sterile Water 10 ml 12/15/24 14:00 12/15/24 14:34
Sterile Water For Injection 10 Ml Vial IV 01/12/25 13:59 10 ml
Q24H SHAYNE Administration
Review of Systems
-
History Source: Patient and Family
All Other Systems: Reviewed and Negative
Physical Exam
-
General: Well Developed and Conversant
HEENT: Moist Mucous Membranes
Cardiology: Normal Sinus Rhythm
Pulmonary: Clear
GI: Soft and Normal Bowel Sounds
Musculoskeletal: No Clubbing, No Cyanosis and No Edema
Neurology: Non Focal
Psych: Calm
Labs
Lab Results
WBC 14.7 10^3/uL (4.8-10.8) H 12/15/24 05:21
RBC 3.86 10^6/uL (4.20-5.40) L 12/15/24 05:21
Hgb 11.3 g/dL (12.0-16.0) L 12/15/24 05:21
Hct 31.9 % (37.0-47.0) L 12/15/24 05:21
MCV 82.6 fL (81.0-99.0) 12/15/24 05:21
MCH 29.3 pg (27.0-31.0) 12/15/24 05:21
MCHC 35.4 g/dL (33.0-37.0) 12/15/24 05:21
RDW 13.2 % (11.5-14.5) 12/15/24 05:21
Plt Count 115 10^3/uL (130-400) L D 12/15/24 05:21
MPV 8.4 fL (7.4-10.4) 12/15/24 05:21
Abs Immat Gran (auto) 0.1 10^3/uL (0-0.05) H 12/14/24 18:50
Absolute Neuts (auto) 13.1 10^3/uL (1.4-6.5) H 12/14/24 18:50
Absolute Lymphs (auto) 0.5 10^3/uL (1.2-3.4) L 12/14/24 18:50
Absolute Monos (auto) 0.4 10^3/uL (0.1-0.6) 12/14/24 18:50
Absolute Eos (auto) 0.0 10^3/uL (0-0.7) 12/14/24 18:50
Absolute Basos (auto) 0.0 10^3/uL (0-0.2) 12/14/24 18:50
Immature Gran % 0.6 % (0-0.5) H 12/14/24 18:50
Neutrophils % 93.4 % (42.2-75.2) H 12/14/24 18:50
Lymphocytes % 3.4 % (20.5-51.1) L 12/14/24 18:50
Monocytes % 2.5 % (1.7-9.3) 12/14/24 18:50
Eosinophils % 0.0 % (0-6) 12/14/24 18:50
Basophils % 0.1 % (0-2) 12/14/24 18:50
Creatinine Cancelled 12/15/24 20:00
Vital Signs
Vital Signs
Temp Pulse Resp BP Pulse Ox
98.1 F 87 11 132/69 97
12/15/24 15:21 12/15/24 16:07 12/15/24 16:07 12/15/24 16:07 12/15/24 16:07
[2024-12-15] MEDS: PAMELOR 20 MG PO (21:27)
[2024-12-15] MEDS: COREG 6.25 MG PO (21:28)
[2024-12-15] MEDS: LIPITOR 40 MG PO (21:28)
[2024-12-15 21:31] LABS: Glucose - Point of Care 279 mg/dl (70-99)
[2024-12-15] MEDS: FLUSH (NSS) 2 FLUSH IV (21:36)
[2024-12-16 06:33] LABS: % Basophils 0.1 % (0-2); % Eosinophils 0.2 % (0-6); % Immature Granulocytes 0.6 % (0-0.5); % Lymphocytes 12.7 % (20.5-51.1); % Monocytes 4.5 % (1.7-9.3); % Neutrophils 81.9 % (42.2-75.2); Absolute Immature Granulocytes 0.1 10^3/uL (0-0.05); Absolute Lymphocytes 1.4 10^3/uL (1.2-3.4); Absolute Monocytes 0.5 10^3/uL (0.1-0.6); Absolute Neutrophils 8.9 10^3/uL (1.4-6.5); Hematocrit 30.7 % (37.0-47.0); Hemoglobin 10.9 g/dL (12.0-16.0); Mean Corp Hgb Conc. 35.5 g/dL (33.0-37.0); Mean Corpuscular Hgb 29.5 pg (27.0-31.0); Mean Corpuscular Volume 83.2 fL (81.0-99.0); Mean Platelet Volume 8.4 fL (7.4-10.4); Nucleated Red Blood Cells % 0 %; Platelet Count 102 10^3/uL (130-400); Red Blood Cell Count 3.69 10^6/uL (4.20-5.40); Red Cell Dist. Width 13.3 % (11.5-14.5); White Blood Cell Count 10.9 10^3/uL (4.8-10.8)
[2024-12-16 06:59] LABS: ALT (SGPT) 18 U/L (0-35); AST (SGOT) 22 U/L (14-36); Albumin 3.2 g/dl (3.5-5.0); Alkaline Phosphatase 96 U/L (38-126); Blood Urea Nitrogen 31 mg/dl (7-17); Calcium 8.5 mg/dl (8.4-10.2); Carbon Dioxide 24 mmol/L (22-30); Chloride 99 mmol/L (98-107); Estimated Creatinine Clearance 32 ml/min; Glucose 225 mg/dl (70-99); Magnesium 1.9 mg/dl (1.6-2.3); Phosphorus 2.2 mg/dl (2.5-4.5); Potassium 4.1 mmol/L (3.5-5.1); Sodium 131 mmol/L (135-145); Total Bilirubin 0.8 mg/dl (0.2-1.3); Total Protein 5.2 g/dl (6.3-8.2); eGFR > 60.00
[2024-12-16 07:29] VITALS: BP 133/68
[2024-12-16 08:18] LABS: Glucose - Point of Care 185 mg/dl (70-99)
[2024-12-16] MEDS: NORVASC 5 MG PO (08:18)
[2024-12-16] MEDS: ASPIR LOW (ENTERIC COATED) 81 MG PO (08:19)
[2024-12-16] MEDS: BENICAR 20 MG PO (08:19)
[2024-12-16] MEDS: VITAMIN B-12 1000 MCG PO (08:19)
[2024-12-16] MEDS: VITAMIN D3 (cholecalciferol) 25 MCG PO (08:19)
[2024-12-16] MEDS: GLUCOPHAGE 500 MG PO ×2 (08:19→17:25)
[2024-12-16] MEDS: NOVOLOG FLEXPEN-MODERATE RESISTANCE 300 UNITS SC (09:04)
[2024-12-16] MEDS: LANTUS 0.15 UNITS SC (09:15)
--- NOTE | 2024-12-16 10:58 | W.PN.HOSP.TC ---
Today's Communication/Plan
-
continue insulin
continue PO steroids
continue IV abx
Assessment / Plan
Assessment / Plan
Assessment:
Hx of Type 2 DM with acute HHNK
- s/p insulin drip
- now transitioned back to Lantus + metformin
- continue SSI- accu-checks
- [employer] POLICE OFFICER following
- A1c: 10.0
Hyponatremia (pseudohyponatremia) in setting of hyperglycemia
- monitor BMP
Pansensitive E. Coli UTI
- continue Rocephin, day 2
Essential HTN
- continue BP meds
HLD - statin
CAD - aspirin
acquired�autoimmune�hemolytic�anemia�(AIHA)
- hematology evaluated
- continue prednisone, wean by 10mg weekly (now on 40mg daily). weekly CBC
DVT ppx: Lovenox
Code: Full
Anticipated Discharge: > 48 hours
Subjective/Interval History
-
Date of Service: December 16, 2024
resting comfortably, no complaints
Objective Data
-
Labs:
Laboratory Results
12/16/24
06:19
WBC 10.9 H
Hgb 10.9 L
Hct 30.7 L
Plt Count 102 L
Sodium 131 L
Potassium 4.1
Chloride 99
Carbon Dioxide 24
BUN 31 H
Creatinine 0.8
Glucose 225 H
Calcium 8.5
Total Bilirubin 0.8 D
AST 22
ALT 18
Alkaline Phosphatase 96
Vital Signs:
Vital Signs
Temp Pulse Resp BP Pulse Ox
97.7 F 79 17 133/68 97
12/16/24 07:29 12/16/24 08:18 12/16/24 07:29 12/16/24 08:18 12/16/24 07:29
I&O
12/15/24 12/16/24 12/17/24
06:59 06:59 06:59
Intake Total 1445 / 1596 1599 / 1599 225 / 225
Balance 1445 / 1596 1599 / 1599 225 / 225
Physical Exam
-
General: No Apparent Distress
HEENT: Normocephalic and Atraumatic
Respiratory: Negative Wheezes
Cardiac: Regular Rhythm and S1/S2
GI: Soft and Nontender
Musculoskeletal: No Edema
Neuro: AO x 3
Hematologic / Lymphatic: No Lymphadenopathy
Psych: Calm
Data Reviewed
-
Total Time Spent with Patient (in minutes): 45
Labs: Labs Reviewed by me
[2024-12-16 11:38] LABS: Glucose - Point of Care 215 mg/dl (70-99)
[2024-12-16] MEDS: NOVOLOG FLEXPEN-MODERATE RESISTANCE 3 UNITS SC (11:48)
[2024-12-16] MEDS: DELTASONE 40 MG PO (11:50)
[2024-12-16] MEDS: STERILE WATER FOR INJECTION 10 ML IV (13:51)
[2024-12-16] MEDS: ROCEPHIN 1000 MG IV (13:51)
[2024-12-16 14:24] VITALS: BP 110/60; PULSE 90
[2024-12-16 14:45] VITALS: BP 108/51
[2024-12-16 16:48] LABS: Glucose - Point of Care 342 mg/dl (70-99)
[2024-12-16] MEDS: LOVENOX 30 MG SC (17:25)
[2024-12-16] MEDS: NOVOLOG FLEXPEN-MODERATE RESISTANCE 7 UNITS SC (17:26)
[2024-12-16] MEDS: PAMELOR 20 MG PO (21:27)
[2024-12-16] MEDS: LIPITOR 40 MG PO (21:27)
[2024-12-16] MEDS: COREG 6.25 MG PO (21:30)
[2024-12-16 21:42] LABS: Glucose - Point of Care 206 mg/dl (70-99)
[2024-12-16 23:00] VITALS: BP 109/61
[2024-12-17 06:00] VITALS: BMI 16.8
[2024-12-17 06:54] LABS: Hematocrit 29.3 % (37.0-47.0); Hemoglobin 10.5 g/dL (12.0-16.0); Mean Corp Hgb Conc. 35.8 g/dL (33.0-37.0); Mean Corpuscular Hgb 30.3 pg (27.0-31.0); Mean Corpuscular Volume 84.7 fL (81.0-99.0); Mean Platelet Volume 8.8 fL (7.4-10.4); Platelet Count 98 10^3/uL (130-400); Red Blood Cell Count 3.46 10^6/uL (4.20-5.40); Red Cell Dist. Width 13.4 % (11.5-14.5); White Blood Cell Count 10.1 10^3/uL (4.8-10.8)
[2024-12-17 07:15] LABS: Glucose - Point of Care 135 mg/dl (70-99)
[2024-12-17] MEDS: NORVASC 5 MG PO (07:15)
[2024-12-17] MEDS: ASPIR LOW (ENTERIC COATED) 81 MG PO (07:15)
[2024-12-17] MEDS: VITAMIN B-12 1000 MCG PO (07:15)
[2024-12-17] MEDS: LANTUS 0.15 UNITS SC (07:15)
[2024-12-17] MEDS: GLUCOPHAGE 500 MG PO ×2 (07:15→16:32)
[2024-12-17] MEDS: NOVOLOG FLEXPEN-MODERATE RESISTANCE SC ×3 (07:15→16:23)
[2024-12-17] MEDS: BENICAR 20 MG PO (07:15)
[2024-12-17 07:16] LABS: Blood Urea Nitrogen 41 mg/dl (7-17); Calcium 8.6 mg/dl (8.4-10.2); Carbon Dioxide 23 mmol/L (22-30); Chloride 99 mmol/L (98-107); Estimated Creatinine Clearance 29 ml/min; Glucose 146 mg/dl (70-99); Potassium 4.1 mmol/L (3.5-5.1); Sodium 131 mmol/L (135-145); eGFR > 60.00
[2024-12-17] MEDS: VITAMIN D3 (cholecalciferol) 25 MCG PO (07:16)
[2024-12-17 07:24] VITALS: BP 112/56
[2024-12-17] MEDS: NOVOLOG FLEXPEN 4 UNITS SC ×3 (08:34→16:32)
--- NOTE | 2024-12-17 11:35 | W.PN.HOSP.TC ---
Today's Communication/Plan
-
continue IV Abx
continue basal/bolus insulin
follow further recs from diabetes team
Assessment / Plan
Assessment / Plan
Assessment:
Hx of Type 2 DM with acute HHNK
- s/p insulin drip
- now transitioned back to Lantus/basal + Metformin.
- continue SSI- accu-checks
- MEDICAID SPECIALIST following
- A1c: 10.0
Hyponatremia (pseudohyponatremia) in setting of hyperglycemia
- monitor BMP
Pansensitive E. Coli UTI
- continue Rocephin, day 11/03
Essential HTN
- continue BP meds
HLD - statin
CAD - aspirin
acquired�autoimmune�hemolytic�anemia�(AIHA)
- hematology evaluated
- continue prednisone, wean by 10mg weekly (now on 40mg daily). weekly CBC
DVT ppx: Lovenox
Code: Full
D/w Fauzia [phone]
Anticipated Discharge: > 48 hours
Subjective/Interval History
-
Date of Service: December 17, 2024
resting comfortably, in chair. No complaints
Objective Data
-
Labs:
Laboratory Results
12/17/24
06:23
WBC 10.1
Hgb 10.5 L
Hct 29.3 L
Plt Count 98 L
Sodium 131 L
Potassium 4.1
Chloride 99
Carbon Dioxide 23
BUN 41 H
Creatinine 0.9
Glucose 146 H
Calcium 8.6
Vital Signs:
Vital Signs
Temp Pulse Resp BP Pulse Ox
98 F 85 15 112/56 99
12/17/24 07:24 12/17/24 07:24 12/17/24 07:24 12/17/24 07:24 12/17/24 07:24
I&O
12/16/24 12/17/24 12/18/24
06:59 06:59 06:59
Intake Total 1599 / 1599 1545 / 1545
Balance 1599 / 1599 1545 / 1545
Physical Exam
-
General: No Apparent Distress
HEENT: Normocephalic and Atraumatic
Respiratory: Negative Wheezes
Cardiac: Regular Rhythm
GI: Soft and Nontender
Neuro: AO x 3
Hematologic / Lymphatic: No Lymphadenopathy
Psych: Calm
Data Reviewed
-
Total Time Spent with Patient (in minutes): 45
Labs: Labs Reviewed by me
[2024-12-17 11:54] LABS: Glucose - Point of Care 119 mg/dl (70-99)
[2024-12-17] MEDS: DELTASONE 40 MG PO (12:05)
[2024-12-17] MEDS: ROCEPHIN 1000 MG IV (13:38)
[2024-12-17] MEDS: STERILE WATER FOR INJECTION 10 ML IV (13:38)
--- NOTE | 2024-12-17 14:35 | CM ---
CM met with Day and her 2 daughters to discuss discharge plans. Pt is new to insulin and per family a walker is recommended by therapy. VN also recommended.
Medicare Compare Home Health list provided to pt/daughters to determine agency they would like to use.
Pt would prefer to use her 's walker and not have home care services, however is agreeable after discussion regarding benefits of VN, especially with new insulin needs which pt would benefit from teaching.
CM to follow up in am if agency choice is not determined before the end of the day.
[2024-12-17 16:00] VITALS: BP 118/61
[2024-12-17 16:20] LABS: Glucose - Point of Care 96 mg/dl (70-99)
[2024-12-17] MEDS: LOVENOX 30 MG SC (17:27)
[2024-12-17] MEDS: LIPITOR 40 MG PO (21:31)
[2024-12-17] MEDS: PAMELOR 20 MG PO (21:31)
[2024-12-17] MEDS: COREG 6.25 MG PO (21:32)
[2024-12-17 21:51] LABS: Glucose - Point of Care 222 mg/dl (70-99)
[2024-12-17 23:45] VITALS: BP 94/38
[2024-12-18 06:00] VITALS: BMI 16.7
[2024-12-18 07:30] VITALS: BP 118/64
--- NOTE | 2024-12-18 08:24 | PN.DE.MGMTRT ---
Insulin Management
- -
12/18/2024: Diabetes Management follow up
Patient admitted 12/14 with muscle cramps, HHNK glucose 1247. PMH: HTN, HCL and T2DM. Prior to admission was taking metformin 500 mg daily. Last A1C reported by daughter was 11/08/24, 5.6%. Cr 0.8, eGFR > 60.
Patient is awake alert and oriented but confused at times, and daughter at bedside answering most questions. and daughter state that patient was started on prednisone 2 weeks ago. States she has been drinking 8 to 12 bottles of
pepsi per day. Patient was on insulin infusion, transitioned to SQ insulin on 12/15.
Glucose stable and in range. Premeal 96 to 135, FBG 93V, 95 POC this AM. Pt noted for poor appetite and oral intake. Pt resides with at home who states that administering 4 shots of insulin will be very challenging for him. Dtr is requesting
for less complex regimen that her Dad will manage with helping the pt at home. Of note, pt's cognitive function is declining, given advanced age and risk for hypoglycemia, will STOP AC NovoLog and start Januvia 100mg daily and increase Metformin to
1000 mg BID. Will cont Lantus 15 units in AM.
Had a lengthy discussion with family at the bedside regarding medication regimen, proper diabetic diet and nutrition at home. certified breastfeeding educator also met with the family and reinforced insulin administration and glucose monitoring at home. Pt's
family is going to contact PCP and get script for a CGM.
Will cont to follow. Meds at discharge: Januvia 100mg daily, Metformin 1000 mg BID and Lantus 15 units in AM.
Diabetes History
- -
Type of Diabetes: 2 requiring insulin
Pre-Admission Diabetes Regimen
Lab Results
Hemoglobin A1c 10.0 % (4.0-5.6) H 12/16/24 06:19
Insulin Pump Settings
IP Diabetes Regimen
12/17/24 12/17/24 12/17/24
11:52 16:19 21:49
POC Glucose 119 H 96 222 H
Patient Education
[2024-12-18 08:45] LABS: Glucose - Point of Care 95 mg/dl (70-99)
[2024-12-18] MEDS: GLUCOPHAGE 500 MG PO (09:17)
[2024-12-18] MEDS: NOVOLOG FLEXPEN-MODERATE RESISTANCE SC (09:17)
[2024-12-18] MEDS: ASPIR LOW (ENTERIC COATED) 81 MG PO (09:18)
[2024-12-18] MEDS: VITAMIN B-12 1000 MCG PO (09:18)
[2024-12-18] MEDS: VITAMIN D3 (cholecalciferol) 25 MCG PO (09:18)
[2024-12-18] MEDS: BENICAR 20 MG PO (09:18)
[2024-12-18] MEDS: NOVOLOG FLEXPEN 4 UNITS SC (09:20)
[2024-12-18 09:21] LABS: Hematocrit 34.4 % (37.0-47.0); Hemoglobin 11.9 g/dL (12.0-16.0); Mean Corp Hgb Conc. 34.6 g/dL (33.0-37.0); Mean Corpuscular Hgb 29.3 pg (27.0-31.0); Mean Corpuscular Volume 84.7 fL (81.0-99.0); Mean Platelet Volume 8.7 fL (7.4-10.4); Platelet Count 126 10^3/uL (130-400); Red Blood Cell Count 4.06 10^6/uL (4.20-5.40); Red Cell Dist. Width 13.5 % (11.5-14.5); White Blood Cell Count 11.8 10^3/uL (4.8-10.8)
[2024-12-18] MEDS: LASIX 20 MG PO (09:24)
[2024-12-18] MEDS: LANTUS 0.15 UNITS SC (09:25)
[2024-12-18 09:40] LABS: Blood Urea Nitrogen 54 mg/dl (7-17); Calcium 9.3 mg/dl (8.4-10.2); Carbon Dioxide 23 mmol/L (22-30); Chloride 97 mmol/L (98-107); Estimated Creatinine Clearance 29 ml/min; Glucose 93 mg/dl (70-99); Potassium 4.3 mmol/L (3.5-5.1); Sodium 131 mmol/L (135-145); eGFR > 60.00
--- NOTE | 2024-12-18 10:44 | W.PN.HOSP.TC ---
Addendum entered and electronically signed by Althea Christianson MD 12/19/24 10:46:
Moderate Protein Calorie Malnutrition
Original Note:
Today's Communication/Plan
-
await Diabetes team education/CHEMIST INTERN visit prior to anticipated dc home
Assessment / Plan
Assessment / Plan
Assessment:
Hx of Type 2 DM with acute HHNK
- s/p insulin drip
- now transitioned to Lantus/basal + Metformin.
- continue SSI- Accu-checks
- COLLECTION OFFICER following
- Diabetes education
- A1c: 10.0
Hyponatremia (pseudohyponatremia) in setting of hyperglycemia
- monitor BMP
Pansensitive E. Coli UTI
- continue Rocephin, day 4/7 - transition to PO at discharge
Essential HTN
- continue BP meds
HLD - statin
CAD - aspirin
acquired�autoimmune�hemolytic�anemia�(AIHA)
- continue prednisone, wean by 10mg weekly (now on 40mg daily). weekly CBC script to be given
- OP f/u Dr. Bustillos
DVT ppx: Lovenox
Code: Full
D/w Fauzia [phone]
Anticipated Discharge: Today
Subjective/Interval History
-
Date of Service: December 18, 2024
denies any new complaints at present
Objective Data
-
Labs:
Laboratory Results
12/18/24
07:52
WBC 11.8 H
Hgb 11.9 L
Hct 34.4 L
Plt Count 126 L D
Sodium 131 L
Potassium 4.3
Chloride 97 L
Carbon Dioxide 23
BUN 54 H
Creatinine 0.9
Glucose 93
Calcium 9.3
Vital Signs:
Vital Signs
Temp Pulse Resp BP Pulse Ox
97.4 F 85 16 118/64 100
12/18/24 07:30 12/18/24 07:30 12/18/24 07:30 12/18/24 07:30 12/18/24 07:30
I&O
12/17/24 12/18/24 12/19/24
06:59 06:59 06:59
Intake Total 1545 / 1545 980 / 980
Balance 1545 / 1545 980 / 980
Physical Exam
-
General: No Apparent Distress
HEENT: Normocephalic and Atraumatic
Respiratory: Negative Wheezes
Cardiac: Regular Rhythm and S1/S2
GI: Soft and Nontender
Genito-urinary: No Costovertebral Tender
Musculoskeletal: No Edema
Neuro: AO x 3
Psych: Calm
Data Reviewed
-
Total Time Spent with Patient (in minutes): 42
Labs: Labs Reviewed by me
--- NOTE | 2024-12-18 10:55 | W.PN.ONC ---
Documented by User: Tanya Ledbetter MD, Resident 12/18/24 11:09
Today's Communication / Plan
-
decrease prednisone to 30mg daily
Impression
Impression
AIHA
hyperglycemia w/ hyponatremia
Plan
Plan
hgb stable, 11.9 today-- will decrease prednisone to 30mg daily-- continue to taper by 10mg q48h to 20mg daily (then anticipate proceeding with slow taper)-- haptoglobin pending-- daily CBC
Subjective/Objective
Subjective/Objective
Reports mild headache, otherwise no complaints. Review of systems negative-- denies dizziness, chest pain, shortness of breath, abdominal pain, nausea, vomiting, diarrhea, constipation.
Physical exam
General: Resting comfortably in bed, no acute distress. Conversant.
Lungs: Nonlabored breathing. Room air.
Neuro: Awake, alert, oriented to self/place (says date is October 2024). Forgetful. No focal neurologic deficits apparent.
Psych: Calm, appropriate affect.
Vital Signs:
Vital Signs
Temp Pulse Resp BP Pulse Ox
97.4 F 85 16 118/64 100
12/18/24 07:30 12/18/24 07:30 12/18/24 07:30 12/18/24 07:30 12/18/24 07:30
Lab Results:
Laboratory Data
WBC 11.8 10^3/uL (4.8-10.8) H 12/18/24 07:52
Hgb 11.9 g/dL (12.0-16.0) L 12/18/24 07:52
Plt Count 126 10^3/uL (130-400) L D 12/18/24 07:52
eGFR > 60.00 12/18/24 07:52
Orders
Orders
Orders From Last 24 Hours
12/18/24 11:00
Prednisone [Deltasone] 30 mg PO DAILY

Documented by User: Miryam Hernandez MD 12/18/24 12:51
Today's Communication / Plan
-
decrease prednisone to 30mg daily
No objection to D/C. further steroid taper as outpt.
Plan
Plan
hgb stable, 11.9 today-- will decrease prednisone to 30mg daily-- continue to taper by 10mg q48h to 20mg daily (then anticipate proceeding with slow taper)-- haptoglobin pending-- daily CBC
--- NOTE | 2024-12-18 11:01 | CM ---
MD entered order for discharge.
Spoke with dgt who said she will drive pt home today.
IMM reviewed Agreed with discharge today.
Offered Vn she requested [facility] VN
PLAN Home with [facility] fax [phone]
[2024-12-18 12:03] LABS: Glucose - Point of Care 150 mg/dl (70-99)
[2024-12-18] MEDS: DELTASONE 30 MG PO (12:05)
[2024-12-18] MEDS: NOVOLOG FLEXPEN-MODERATE RESISTANCE 1 UNITS SC (12:25)
[2024-12-18] MEDS: JANUVIA 100 MG PO (12:30)
[2024-12-18] MEDS: NOVOLOG FLEXPEN SC (12:34)
--- NOTE | 2024-12-18 12:45 | W.DS.TRANS ---
DC Summary - Project/Production Manager Imaging
-
Discharge Instructions:
Discharge Diagnosis/Procedures Hyperglycemia (HHNK) and E. Coli UTI
Diet Diabetic, Carb Controlled
Activity As tolerated
Blood Work CBC weekly - script given
Other Services VN,PT,OT
Instructions:
Stand-Alone Forms:
Changes to Home Medications: No
Discharge Medications:
DC Medications w/original date entered in [facility] [employer]
carvedilol 6.25 mg tablet 6.25 mg PO HS Blood Pressure 11/14/10
amlodipine 5 mg tablet 5 mg PO DAILY Blood Pressure 12/14/24
aspirin 81 mg tablet,delayed release 81 mg PO DAILY Blood Clot Prevention/Tx 12/14/24
atorvastatin 40 mg tablet 40 mg PO HS High Cholesterol 12/14/24
cholecalciferol (vitamin D3) 25 mcg (1,000 unit) tablet (Vitamin D3) 25 mcg PO DAILY Supplement 12/14/24
cyanocobalamin (vitamin B-12) 1,000 mcg tablet 1,000 mcg PO DAILY Supplement 12/14/24
furosemide 20 mg tablet 20 mg PO MOWEFR Fluid Retention/Swelling 12/14/24
nortriptyline 10 mg capsule 20 mg PO HS Mental Health/Anxiety 12/14/24
olmesartan 20 mg tablet 20 mg PO DAILY Blood Pressure 12/14/24
blood sugar diagnostic (Contour Next Test Strips) #200 ea 12/18/24
cefdinir 300 mg capsule 300 mg PO BID #6 caps 12/18/24
insulin glargine 100 unit/mL (3 mL) subcutaneous pen (Lantus Solostar U-100 Insulin) 15 unit (0.15 mL) SC DAILY #5 ea 12/18/24
lancets 21 gauge (Color Lancets) #200 ea 12/18/24
metformin 500 mg tablet 1,000 mg (2 x 500 mg) PO BID@0800,1700 #120 tabs 12/18/24
pen needle, diabetic 29 gauge x 1/2' (Ultra-Fine Pen Needle) #100 ea 12/18/24
prednisone 10 mg tablet 10 mg PO DIRECTED #60 tabs 12/18/24
sitagliptin phosphate 100 mg tablet (Januvia) 100 mg PO DAILY #30 tabs 12/18/24
Home Medication Changes
Pending Results: No
Total time spent discharging patient (in min): 41
[2024-12-18] MEDS: STERILE WATER FOR INJECTION 10 ML IV (12:49)
[2024-12-18] MEDS: ROCEPHIN 1000 MG IV (12:49)
[2024-12-18 13:30] VITALS: BP 118/50
[2024-12-18 20:10] LABS: Haptoglobin 142 mg/dL (30-200)
--- NOTE | 2024-12-19 10:13 | PN.CDI ---
CDI
- -
CDI:
Physician Documentation Request
Admit Date: 12/14/24 21:50
Dear Doctor Sammy,
Patient admitted for diabetes.
12/15 Process Designer: 'Patient meets AND and ANDREW criteria for moderate protein calorie malnutrition of chronic disease j luis to less than 75% of nutrition needs met for over 1 month and moderate muscle loss in her clavicle region.'
Based on the above information and your assessment, which of the following most accurately represents the patient's nutritional status?
Moderate Protein Calorie Malnutrition
Other
[place] Criteria ([facility] Hospitalist 2017)
2 or more criteria must be present for either
non severe or severe malnutrition
Note that the criteria differs related to the
presence of an acute or chronic illness
Acute Illness Chronic Illness
Energy Intake Non Severe: <75% for >7 days Non Severe: <75% for >1 month
Severe: <50% for >5 days Severe: <75% for >1 month
Weight Loss Non Severe: 1-2% over 1 week Non Severe: 5% over 1 month
5% over 1 month 7.5% over 3 months
7.5% over 3 months 10% over 6 months
1 year N/A 20% over 1 year
Severe: >2% over 1 week Severe: >5% over 1 month
>5% over 1 month >7.5% over 3 months
>7.5% over 3 months >10% over 6 months
1 year N/A >20% over 1 year
Body Fat Non Severe: Mild Decrease Non Severe: Mild Loss
Severe: Moderate Decrease Severe: Severe Loss
Muscle Mass Non Severe: Mild Decrease Non Severe: Mild Loss
Severe: Moderate Decrease Severe: Severe Loss
Fluid Accumulation Non Severe: Mild Accumulation Non Severe: Mild Accumulation
Severe: Moderate to severe Severe: Moderate to severe
accumulation accumulation
Reduced Sheet Rock Finisher Strength Non Severe: N/A Non Severe: N/A
Severe: Measurably reduced Severe: Measurably reduced
Additional criteria that can be used to Determine if Mild or Moderate Malnutrition (Merck Manual 2018)
Mild Moderate Severe
Albumin gm/dl <3.0 gm/dl <2.5 gm/dl <2.0 gm/dl
Pre Albumin mg/dl <15 gm/dl <10 mg/dl <5.0 mg/dl
BMI <18.5 <17 <16
Use of terms such as suspected, likely, concern for, or probable (associated with a specific diagnosis that is being evaluated, monitored, or treated as if it exists) are acceptable and can be coded in the inpatient setting, when documented at the
time of discharge.
Thank you,
Dede Alaniz RN, BSN
CDI Specialist
Available via [employer]
Please use your independent medical judgment in providing your response.
== END 2024-12-18 14:34 | disposition home health service (06) | DRG 638 ==
LOC: 3 WEST ACU 21:50
PROVIDERS: Nurse Practitioner; Nurse Practitioner Family; Nurse Practitioner Primary Care; Student in an Organized Health Care Education/Training Program; ADMITTING PHYSICIAN Internal Medicine; ATTENDING PHYSICIAN Internal Medicine; CONSULT PHYSICIAN Internal Medicine Critical Care Medicine; EMERGENCY PHYSICIAN Emergency Medicine; FAMILY PHYSICIAN Family Medicine; OTHER PHYSICIAN Internal Medicine Hematology & Oncology
DX: E11.00 Type 2 diabetes mellitus with hyperosmolarity without nonketotic hyperglycemic-hyperosmolar coma (NKHHC) (principal); D59.10 Autoimmune hemolytic anemia, unspecified; N39.0 Urinary tract infection, site not specified; E87.1 Hypo-osmolality and hyponatremia; E44.0 Moderate protein-calorie malnutrition; Z68.1 Body mass index [BMI] 19.9 or less, adult; B96.20 Unspecified Escherichia coli [E. coli] as the cause of diseases classified elsewhere; I10 Essential (primary) hypertension; E78.00 Pure hypercholesterolemia, unspecified; I25.10 Atherosclerotic heart disease of native coronary artery without angina pectoris; Z79.84 Long term (current) use of oral hypoglycemic drugs; D50.9 Iron deficiency anemia, unspecified; Z79.82 Long term (current) use of aspirin; Z79.899 Other long term (current) drug therapy; Z79.4 Long term (current) use of insulin; E83.39 Other disorders of phosphorus metabolism; K21.9 Gastro-esophageal reflux disease without esophagitis; I34.1 Nonrheumatic mitral (valve) prolapse; F41.9 Anxiety disorder, unspecified; Z86.73 Personal history of transient ischemic attack (TIA), and cerebral infarction without residual deficits; M81.0 Age-related osteoporosis without current pathological fracture; Z87.440 Personal history of urinary (tract) infections
CPT/HCPCS: 71045; 73110; 80048; 80053; 81003; 81015; 82010; 82947; 82962; 83010; 83036; 83735; 84100; 85025; 85027; 87077; 87086; 87186; 90677; 93005; 96361; 96374; 97162; 97167; 99291; G0009

== ENCOUNTER 2025-01-09 20:03 | Emergency (ER) | payer MEDICARE, OTHER, SELFPAY ==
[2025-01-09 20:06] VITALS: BP 121/62
--- NOTE | 2025-01-09 20:34 | ED.GENMED ---
History of Present Illness
General
Chief Complaint: Head Injury
Time Seen by Provider: 01/09/25 20:34
History of Present Illness
History of Present Illness:
TIME OF INITIAL ENCOUNTER: 8:35 PM
HPI: Patient bent down and fell backwards striking the back of her head. She is on aspirin. The was there as a witness, the patient is somewhat of a poor historian given history of dementia. However she denies any pain or other concerns.
Family has no other concerns at bedside. She does have a history of an intracranial hemorrhage that was managed with observation with no surgery.
EXAM:
GENERAL: Appears in no distress
HEENT: Moist oral mucosa, there is bandage noted to the right side of the lower lip related to recent biopsy
HEAD: No evidence of craniofacial trauma
C-SPINE: No midline C-spine tenderness with excellent active range of motion
CARDIOVASCULAR: Regular rate and rhythm
PULMONARY: No respiratory distress, breathing is nonlabored, equal and clear breath sounds
ABDOMEN: Soft and nontender with no peritoneal signs
NEUROLOGIC: The patient has evidence of dementia, not oriented to month or place, strength is equal in all extremities
EXTREMITIES: Moves all extremities equally, no tenderness, no edema
PYSCHIATRIC: Very limited historian, poor insight and judgment
NUMBER AND COMPLEXITY OF PROBLEMS ADDRESSED AT THE ENCOUNTER
� Chronic conditions affecting care: Dementia, has had intracranial bleed, CAD on aspirin, IDDM
� Acute Exacerbation and/or Progression of Chronic Illness: This is an acute problem
� Differential Diagnosis includes: Intracranial hemorrhage, concussion, minor head injury, no evidence of laceration
AMOUNT AND/OR COMPLEXITY OF DATA TO BE REVIEWED AND ANALYZED
� I performed an independent evaluation of and my interpretation is:
EKG:
CT: CAT scan of the brain shows no acute abnormality
X-rays:
Laboratory Studies:
Other:
� Review of other/old records: I reviewed records, the patient was admitted with UTI last month
� Clinical information was obtained by an independent historian: I spoke to and son at bedside
� Prescriptions/Medications Considered but not given:
� Further testing considered but not performed:
RISK OF COMPLICATIONS AND/OR MORBIDITY OR MORTALITY OF PATIENT MANAGEMENT
� Social determinants of health affecting care: Resides at [facility]
� Discussion with other providers:
� Escalation of care including admission/observation vs risk of discharge considered: CAT scan of the brain unremarkable.
ANY OTHER UPDATES:
11 PM: I reassessed patient. No changes in clinical condition. Informed family of the results.
Past History
Past History
ED Past Medical History: HTN, Hypercholesterolemia and Other (Mitral prolapse)
ED Past Surgical History: None
Social History
Tobacco: Non-smoker
Alcohol: None
Drug: None
Personal:
Living: with family
Phy Exam
Physical Exam
Physical Exam:
See HPI
Course
Orders/Labs/Results
Orders:
Orders
01/09/25 20:12
CT Head W/o Iv Contrast Urgent
Comment:
Reason For Exam: head injury
Vital Signs
Initial and Last Documented VS:
Initial Vital Signs
Temp Pulse Resp BP Pulse Ox
36.4 C 107 18 121/62 99
01/09/25 20:06 01/09/25 20:06 01/09/25 20:06 01/09/25 20:06 01/09/25 20:06
Last Documented Vital Signs
Temp Pulse Resp BP Pulse Ox
36.4 C 107 18 121/62 99
01/09/25 20:06 01/09/25 20:06 01/09/25 20:06 01/09/25 20:06 01/09/25 20:06
*Critical Care Note
Total Time (30-74mins, 75-104mins- exclusive of procedures): Not Applicable
ED Attending Note
-
Portions of this chart may have been created with voice recognition software.� Occasional wrong word or��sound alike� substitutions may have occurred due to the inherent limitations of voice recognition software.
Discharge Plan
Departure
Patient Disposition: Home (Routine Discharge)
Date of Disposition: 01/09/25
Time of Disposition: 22:57
Patient with high blood pressure during this ER visit?: Yes
Discharge Problem:
Head injury
Instructions: Head Injury in Adults (DC), BLOOD PRESSURE
Prescriptions:
No Action
carvedilol 6.25 MG tablet
6.25 mg PO HS
atorvastatin 40 mg Tablet
40 mg PO HS
cyanocobalamin (vitamin B-12) 1,000 mcg Tablet
1,000 mcg PO DAILY
amlodipine 5 mg Tablet
5 mg PO DAILY
aspirin 81 mg Tablet,Delayed Release (Dr/Ec)
81 mg PO DAILY
nortriptyline 10 mg Capsule
20 mg PO HS
furosemide 20 mg Tablet
20 mg PO MOWEFR
olmesartan 20 mg Tablet
20 mg PO DAILY
cholecalciferol (vitamin D3) [Vitamin D3] 25 mcg (1,000 unit) Tablet
25 mcg PO DAILY
prednisone 10 mg Tablet
10 mg PO DIRECTED Qty: 60 0RF
Rx Instructions:
3 tabs (30mg) x 1 week, then 2 tabs (20mg) x 1 week, then 1 tab (10mg) daily
cefdinir 300 mg capsule
300 mg PO BID Qty: 6 0RF
Rx Instructions:
starting 12/19
metformin 500 mg Tablet
1,000 mg PO BID@0800,1700 Qty: 120 0RF
Januvia 100 mg Tablet
100 mg PO DAILY Qty: 30 0RF
(DME) Contour Next Test Strips Strip
Qty: 200 0RF
Rx Instructions:
As Directed
insulin glargine [Lantus Solostar U-100 Insulin] 100 unit/mL (3 mL) Insulin Pen
15 unit SC DAILY Qty: 5 0RF
(DME) lancets [Color Lancets] 21 gauge Misc
Qty: 200 0RF
Rx Instructions:
As Directed
(DME) pen needle, diabetic [Ultra-Fine Pen Needle] 29 gauge x 1/2' needle
See Rx Instructions .Route Qty: 100 0RF
Rx Instructions:
As directed
Referrals:
Jenifer Raza MD [Family Provider] -
Activity Restrictions/Additional Instructions:
CAT scan of the brain shows no acute abnormality. There is no bleeding. Return here if worse or other concerns. Follow-up with your primary care doctor.
Interventions
Interventions:
*Risk Screen - Suicide Last Done: 01/09/25 20:06
*General Assessment Last Done: 01/09/25 20:06
*Neglect/Abuse Screening Last Done: 01/09/25 21:25
*ED COVID-19 Vaccine History Last Done: 01/09/25 20:06
ED- Neurological Assessment Last Done: 01/09/25 21:25
ED-Skin Assessment Last Done: 01/09/25 21:25
Discharge Date and Time
Print Language: MALAYSIAN
== END 2025-01-09 23:19 | disposition home or self-care (01) ==
LOC: EMR 20:03
PROVIDERS: EMERGENCY PHYSICIAN Emergency Medicine; FAMILY PHYSICIAN Family Medicine
DX: S09.90XA Unspecified injury of head, initial encounter (principal); W19.XXXA Unspecified fall, initial encounter; E78.00 Pure hypercholesterolemia, unspecified; I10 Essential (primary) hypertension; I34.1 Nonrheumatic mitral (valve) prolapse; Z79.82 Long term (current) use of aspirin
CPT/HCPCS: 99284; 70450

== ENCOUNTER 2025-02-15 14:29 | Emergency (ER) | payer MEDICARE, OTHER, SELFPAY ==
[2025-02-15 14:34] VITALS: BP 145/70
[2025-02-15 15:02] VITALS: BP 143/77
[2025-02-15 16:00] VITALS: BP 126/77
[2025-02-15 18:00] VITALS: BP 146/78
--- NOTE | 2025-02-15 18:46 | ED.GENMED ---
History of Present Illness
General
Chief Complaint: Fall
Source: patient and family
Time Seen by Provider: 02/15/25 15:04
History of Present Illness
History of Present Illness:
Note:
CHIEF COMPLAINT(S)
Recent fall with subsequent left-sided discomfort and minor injuries.
HISTORY OF PRESENT ILLNESS
The patient is an 84-year-old female with a history of high cholesterol, diabetes, and autoimmune hemolytic anemia, who presents after a fall that occurred approximately one hour prior to arrival. The fall occurred outside her extended care
facility, reportedly due to missing a curb while walking with her spouse. The patient was undergoing Ruxience (rituximab) infusions to address anemia, with hemoglobin previously documented at 7.8. She reports left-side discomfort, specifically in
the left thumb, and minor abrasions on the left knee and lips. Prior to the fall, she experienced knee pain but reports no significant increase in symptoms post-fall. There is swelling and some discomfort in her left hand. She is not on any blood
thinners but takes furosemide to manage edema. Additionally, she exhibits some forgetfulness, as noted by family, that is chronic.
ADDITIONAL HISTORY OBTAINED FROM SOURCES OTHER THAN THE PATIENT
According to the patients family (daughter), she completed an infusion earlier in the day and was later on a walk with her spouse when she missed a curb and fell. The spouse sought help immediately after.
PHYSICAL EXAM
- General: No respiratory distress observed.
- Cardiovascular: Heart is regular, no murmurs.
- Head and Neck: Swelling, ecchymosis, and abrasion noted on the left maxillary region; extraocular muscles are intact; orbit is normal. No malocclusion, no tenderness to the mandible.
- Musculoskeletal: Full range of motion in the left elbow; slight tenderness in the left first metacarpal. Minor abrasion on the left knee. full normal range of motion to the b/l knees and hips
- Neurological: No tenderness or significant findings in the cervical, thoracic, or lumbar spine.
PLAN
- Obtain a CT scan of the head and neck to assess for potential injuries related to the fall.
DIFFERENTIAL DIAGNOSIS
The Differential Diagnosis includes, in no particular order and is not limited to:
1. Fracture of the left hand or wrist
2. Soft tissue injury or contusion
3. Intracranial hemorrhage
4. Cervical spine injury
5. Hip fracture
6. Rib fracture
7. Subdural hematoma
8. Osteoporosis-related fracture
9. Traumatic brain injury
Disposition:
SUMMARY OF ENCOUNTER
84-year-old female presented after a fall with left-sided discomfort and minor injuries.
DISPOSITION
Patient discharged for outpatient follow-up.
ASSESSMENT
CT imaging negative for acute fracture or intracranial hemorrhage.
PLAN
Recommended ice application and antibiotic ointment for superficial injuries.
INDEPENDENT REVIEW OF LABS AND INTERPRETATION OF TESTS
My independent interpretation of the CT scan is negative for acute fracture or intracranial hemorrhage.
ADDITIONAL TESTING AND IMAGING CONSIDERED
Consideration of additional diagnostic imaging was not warranted based on current findings.
MEDICAL DECISION MAKING
- Chronic conditions affecting care: high cholesterol, diabetes, autoimmune hemolytic anemia.
- Differential Diagnoses: Intracranial hemorrhage, fracture of the left hand or wrist, anemia-related syncope or weakness.
- Category 2: External notes were reviewed, including a discharge summary from November 2024 for hyperglycemia and E. coli urinary tract infection.
PATHOLOGIES TO CONSIDER
Intracranial hemorrhage, fracture of the left hand or wrist.
Past History
Past History
ED Past Medical History: HTN, Hypercholesterolemia and Other (Mitral prolapse)
ED Past Surgical History: None
Social History
Tobacco: Non-smoker
Alcohol: None
Drug: None
Personal:
Living: with family
Phy Exam
Physical Exam
Physical Exam:
.
Course
Orders/Labs/Results
Orders:
Orders
02/15/25 15:33
Hand, Left 3 View [CR Hand - Left Min 3 Views] Urgent
Comment:
Reason For Exam: fall
02/15/25 15:34
CT Cervical Spine W/o Iv Contr Urgent
Comment:
Reason For Exam: fall
CT Head W/o Iv Contrast Urgent
Comment:
Reason For Exam: fall
Vital Signs
Initial and Last Documented VS:
Initial Vital Signs
Temp Pulse Resp BP Pulse Ox
98.5 F 81 17 145/70 98
02/15/25 14:34 02/15/25 14:34 02/15/25 14:34 02/15/25 14:34 02/15/25 14:34
Last Documented Vital Signs
Temp Pulse Resp BP Pulse Ox
98.5 F 78 18 146/78 95
02/15/25 14:34 02/15/25 18:36 02/15/25 18:36 02/15/25 18:00 02/15/25 18:48
*Pulse Oximetry
SaO2: 95
Oxygen Mode of Delivery: Room air
Patient hypoxic: no
*Critical Care Note
Total Time (30-74mins, 75-104mins- exclusive of procedures): Not Applicable
ED Attending Note
-
Portions of this chart may have been created with voice recognition software.� Occasional wrong word or��sound alike� substitutions may have occurred due to the inherent limitations of voice recognition software.
Discharge Plan
Departure
Patient Disposition: Home (Routine Discharge)
Date of Disposition: 02/15/25
Time of Disposition: 18:47
Patient with high blood pressure during this ER visit?: Yes
Discharge Problem:
Abrasion, Contusion of face
Instructions: Contusion (DC), Skin Abrasions (DC), BLOOD PRESSURE
Prescriptions:
No Action
carvedilol 6.25 MG tablet
6.25 mg PO HS
atorvastatin 40 mg Tablet
40 mg PO HS
cyanocobalamin (vitamin B-12) 1,000 mcg Tablet
1,000 mcg PO DAILY
amlodipine 5 mg Tablet
5 mg PO DAILY
aspirin 81 mg Tablet,Delayed Release (Dr/Ec)
81 mg PO DAILY
nortriptyline 10 mg Capsule
20 mg PO HS
furosemide 20 mg Tablet
20 mg PO MOWEFR
olmesartan 20 mg Tablet
20 mg PO DAILY
cholecalciferol (vitamin D3) [Vitamin D3] 25 mcg (1,000 unit) Tablet
25 mcg PO DAILY
prednisone 10 mg Tablet
10 mg PO DIRECTED Qty: 60 0RF
Rx Instructions:
3 tabs (30mg) x 1 week, then 2 tabs (20mg) x 1 week, then 1 tab (10mg) daily
cefdinir 300 mg capsule
300 mg PO BID Qty: 6 0RF
Rx Instructions:
starting 12/19
metformin 500 mg Tablet
1,000 mg PO BID@0800,1700 Qty: 120 0RF
Januvia 100 mg Tablet
100 mg PO DAILY Qty: 30 0RF
(DME) Contour Next Test Strips Strip
Qty: 200 0RF
Rx Instructions:
As Directed
insulin glargine [Lantus Solostar U-100 Insulin] 100 unit/mL (3 mL) Insulin Pen
15 unit SC DAILY Qty: 5 0RF
(DME) lancets [Color Lancets] 21 gauge Misc
Qty: 200 0RF
Rx Instructions:
As Directed
(DME) pen needle, diabetic [Ultra-Fine Pen Needle] 29 gauge x 1/2' needle
See Rx Instructions .Route Qty: 100 0RF
Rx Instructions:
As directed
Referrals:
Jenifer Raza MD [Family Provider, Family Practice]
Activity Restrictions/Additional Instructions:
Please ice your facial wounds every 30 minutes while awake. Keep wounds clean and dry and apply Vaseline twice a day. Return immediately for changes in mentation, vomiting, weakness of any kind or any other concerns.
Interventions
Interventions:
*Risk Screen - Suicide Last Done: 02/15/25 14:34
*General Assessment Last Done: 02/15/25 14:34
*Neglect/Abuse Screening Last Done: 02/15/25 14:34
*ED- Fall Risk Assessment Last Done: 02/15/25 14:34
*ED COVID-19 Vaccine History Last Done: 02/15/25 14:34
*Nursing Disposition Last Done: 02/15/25 19:01
ED-Musculoskeletal Assessment Last Done: 02/15/25 15:04
ED- Neurological Assessment Last Done: 02/15/25 15:04
ED-Skin Assessment Last Done: 02/15/25 15:04
Discharge Date and Time
Discharge Date/Time: 02/15/25 19:02
Print Language: DOMINICAN
== END 2025-02-15 19:02 | disposition home or self-care (01) ==
LOC: EMR 14:29
PROVIDERS: EMERGENCY PHYSICIAN Emergency Medicine; FAMILY PHYSICIAN Family Medicine
DX: S00.511A Abrasion of lip, initial encounter (principal); S80.212A Abrasion, left knee, initial encounter; S00.83XA Contusion of other part of head, initial encounter; W19.XXXA Unspecified fall, initial encounter; E78.00 Pure hypercholesterolemia, unspecified; E11.9 Type 2 diabetes mellitus without complications; D59.10 Autoimmune hemolytic anemia, unspecified; I10 Essential (primary) hypertension; I34.1 Nonrheumatic mitral (valve) prolapse
CPT/HCPCS: 99284; 70450; 72125; 73130

== ENCOUNTER 2025-02-18 12:34 | Emergency (ER) | payer MEDICARE, OTHER, SELFPAY ==
[2025-02-18 12:41] VITALS: BP 148/96; BMI 16.4
[2025-02-18 13:00] VITALS: BP 134/66
[2025-02-18 13:54] VITALS: BP 134/66
--- NOTE | 2025-02-18 14:09 | ED.MUSCINJ ---
HPI-Injury
General
Chief Complaint: Fall
Source: patient and spouse
Exam Limitations: none
Time Seen by Provider: 02/18/25 13:53
Nursing documentation reviewed up to this point in time: agreed with
History of Present Illness-Injury
Is this injury a work related problem?: No
Is pt an associate of [facility]/[place]?: No
Initial Injury comments:
Spouse states patient was usng walker and exiting elevator when she fell. He denies her hitting her head. SHe complaint of pain to her low back and left hip. Brought to ED by EMS for eval.
Past History
Past History
ED Past Medical History: HTN, Hypercholesterolemia and Other (Mitral prolapse)
ED Past Surgical History: None
Social History
Tobacco: Non-smoker
Alcohol: None
Drug: None
Personal:
Living: with family
Review of Systems
Review of Systems
Allergies reviewed?: Yes
All Other Systems: ROS reviewed and negative except as documented in HPI and ROS
Constitutional: Reports no symptoms
EENT: Reports no symptoms
Respiratory: Reports no symptoms
Cardiac: Reports no symptoms
ABD/GI: Reports no symptoms
: Reports no symptoms
Musculoskeletal: Reports joint pain (left hip pain) and back pain (low back pain)
Skin: Reports no symptoms
Neurological: Reports no symptoms
Psychiatric: Reports no symptoms
Musculoskeletal Injury Exam
Musculoskeletal Injury Exam
Bilateral Lower Back:
Pain with Movement?: Moderate
Tender to palpation?: Moderate
Soft tissue swelling?: None
External deformity and angulation?: None
Joint effusion?: None
Contusion?: Moderate
Hematoma-local bleeding into tissue?: None
Strain- Sprain- Tear (Connective tissue injury)?: Moderate
Crepitus with movement?: No
Joint instability?: No
Malalignment/deformity?: No
Range of motion: Full
Distal skin color and temperature: normal-warm & good color
Capillary Refill: normal
Normal distal neurovascular exam?: Yes
Left Hip:
Pain with Movement?: Moderate
Tender to palpation?: Moderate
Soft tissue swelling?: None
External deformity and angulation?: None
Joint effusion?: None
Contusion?: Moderate
Hematoma-local bleeding into tissue?: None
Strain- Sprain- Tear (Connective tissue injury)?: Moderate
Crepitus with movement?: No
Joint instability?: No
Malalignment/deformity?: No
Range of motion: Full
Distal skin color and temperature: normal-warm & good color
Capillary Refill: normal
Normal distal neurovascular exam?: Yes
Phy Exam
General Physical Exam
General Presentation: well appearing and no apparent distress
General age: appears stated age
General Skin: warm and dry
General Habitus: normal
General Mental: alert
Gastrointestinal Exam
Gastrointestinal Exam: non tender and soft
Neurological Exam
Neurological Exam: alert, CN II-XII intact, no motor deficits, no sensory deficits, speech normal and confused (baseline)
Musculoskeletal Exam
Musculoskeletal Exam: full ROM and neuro vasc intact
Skin Exam
Skin Exam: normal color, warm/dry, no rash and other (bruising to left side of face from fall on . SHe was evaluated in ED, CT neg for fx, intracranial bleeding)
Psychiatric Exam
Psychiatric Exam: normal mood/affect
Injury Course
Orders/Labs/Results
Orders:
Orders
02/18/25 14:07
Hip, Left 2-3 Views [CR Hip - LT w/wo Pel 2-3 Vw*] Urgent
Comment:
Reason For Exam: fall
Include a pelvis x-ray?: Yes
Lumbar Spine Complete, 4 View [CR Lumbar Spine Comp Min 4 Vw*] Urgent
Comment:
Reason For Exam: fall
*Radiology
Radiology exam reviewed: radiology read reviewed
*Pulse Oximetry
SaO2: 95
Oxygen Mode of Delivery: Room air
Patient hypoxic: no
*Critical Care Note
Total Time (30-74mins, 75-104mins- exclusive of procedures): Not Applicable
ED Attending Note
-
Portions of this chart may have been created with voice recognition software.� Occasional wrong word or��sound alike� substitutions may have occurred due to the inherent limitations of voice recognition software.
Discharge Plan
Departure
Patient Disposition: Home (Routine Discharge)
Date of Disposition: 02/18/25
Time of Disposition: 15:18
Patient with high blood pressure during this ER visit?: No
Condition: Good
Covid-19: Not Applicable
Discharge Problem:
Back contusion, Contusion of hip
Instructions: Contusion (DC), Preventing falls in adults
Prescriptions:
No Action
atorvastatin 40 mg Tablet
40 mg PO HS
cyanocobalamin (vitamin B-12) 1,000 mcg Tablet
1,000 mcg PO DAILY
aspirin 81 mg Tablet,Delayed Release (Dr/Ec)
81 mg PO DAILY
nortriptyline 10 mg Capsule
20 mg PO HS
furosemide 20 mg Tablet
20 mg PO MOWEFR
cholecalciferol (vitamin D3) [Vitamin D3] 25 mcg (1,000 unit) Tablet
25 mcg PO DAILY
metformin 500 mg Tablet
1,000 mg PO BID@0800,1700 Qty: 120 0RF
Januvia 100 mg Tablet
100 mg PO DAILY Qty: 30 0RF
(DME) Contour Next Test Strips Strip
Qty: 200 0RF
Rx Instructions:
As Directed
(DME) lancets [Color Lancets] 21 gauge Misc
Qty: 200 0RF
Rx Instructions:
As Directed
(DME) pen needle, diabetic [Ultra-Fine Pen Needle] 29 gauge x 1/2' needle
See Rx Instructions .Route Qty: 100 0RF
Rx Instructions:
As directed
latanoprost 0.005 % Drops
1 drp OPHTHALMIC (EYE) DAILY
prochlorperazine maleate 10 mg Tablet
10 mg PO Q6H PRN (Reason: nausea)
ondansetron 8 mg Tablet,Disintegrating
8 mg PO Q8H PRN (Reason: nausea)
calcitonin (salmon) 200 unit/actuation Rheems,Non-Aerosol
1 spray INTRANASAL (ALT) DAILY
folic acid 1 mg Tablet
1 mg PO DAILY
insulin lispro [Humalog U-100 Insulin] 100 unit/mL Solution
1 sliding scale dose SC DIRECTED
dorzolamide 2 % Drops
1 drp OPHTHALMIC (EYE) BID
Rx Instructions:
both eyes
prednisone 10 mg tablet
5 mg PO DAILY
Referrals:
Jenifer Raza MD [Family Provider, Family Practice] - Follow up in 2-3 days
Interventions
Interventions:
*Risk Screen - Suicide Last Done: 02/18/25 12:41
*General Assessment Last Done: 02/18/25 12:41
*Neglect/Abuse Screening Last Done: 02/18/25 12:41
*ED- Fall Risk Assessment Last Done: 02/18/25 12:41
*ED COVID-19 Vaccine History Last Done: 02/18/25 12:41
ED-Musculoskeletal Assessment Last Done: 02/18/25 12:41
ED- Neurological Assessment Last Done: 02/18/25 12:41
ED-Skin Assessment Last Done: 02/18/25 12:41
Discharge Date and Time
Print Language: MOROCCAN
== END 2025-02-18 15:41 | disposition home or self-care (01) ==
LOC: EMR 12:34
PROVIDERS: EMERGENCY PHYSICIAN Emergency Medicine; FAMILY PHYSICIAN Family Medicine
DX: S30.0XXA Contusion of lower back and pelvis, initial encounter (principal); S70.02XA Contusion of left hip, initial encounter; W19.XXXA Unspecified fall, initial encounter; I10 Essential (primary) hypertension; E78.00 Pure hypercholesterolemia, unspecified
CPT/HCPCS: 99284; 72110; 73502

== ENCOUNTER 2025-04-08 12:14 | Emergency (ER) | payer MEDICARE, OTHER, SELFPAY ==
[2025-04-08 12:18] VITALS: BP 154/113
[2025-04-08 12:34] LABS: Hematocrit 31.5 % (37.0-47.0); Hemoglobin 10.6 g/dL (12.0-16.0); Mean Corp Hgb Conc. 33.7 g/dL (33.0-37.0); Mean Corpuscular Volume 94.3 fL (81.0-99.0); Nucleated Red Blood Cells % 0 %; Platelet Count 257 10^3/uL (130-400); Red Cell Dist. Width 16.6 % (11.5-14.5)
[2025-04-08 12:48] LABS: ALT (SGPT) 30 U/L (0-35); AST (SGOT) 22 U/L (14-36); Albumin 4.5 g/dl (3.5-5.0); Alkaline Phosphatase 68 U/L (38-126); Blood Urea Nitrogen 22 mg/dl (7-17); Calcium 9.9 mg/dl (8.4-10.2); Carbon Dioxide 29 mmol/L (22-30); Chloride 103 mmol/L (98-107); Glucose 284 mg/dl (70-99); Potassium 4.2 mmol/L (3.5-5.1); Sodium 140 mmol/L (135-145); Total Protein 6.7 g/dl (6.3-8.2); eGFR > 60.00
--- NOTE | 2025-04-08 13:05 | ED.GENMED ---
History of Present Illness
General
Chief Complaint: Urinary Symptoms
Source: patient and family
Exam Limitations: none
Time Seen by Provider: 04/08/25 12:58
History of Present Illness
History of Present Illness:
See MDM
Past History
Past History
ED Past Medical History: HTN, Hypercholesterolemia and Other (Mitral prolapse)
ED Past Surgical History: None
Social History
Tobacco: Non-smoker
Alcohol: None
Drug: None
Personal:
Living: with family
Phy Exam
Physical Exam
Physical Exam:
See MDM
Sepsis
Sepsis Screening
Sepsis Assessment: Sepsis Ruled Out
Sepsis Screen
Sepsis Screen: Sepsis Ruled Out
Date: 04/08/25
Time: 14:59
Course
Orders/Labs/Results
Orders:
Orders
04/08/25 12:21
IV Insert/Care/Rem.- Treatment PRN
04/08/25 12:26
Complete Blood Count/With Diff Urgent
Comprehensive Metabolic Panel Urgent
04/08/25 13:08
0.9% Sodium Chloride 500 ml [Nss] 500 ml IV BOLUS
04/08/25 13:33
Urinalysis Reflex To Culture Urgent
Date Specimen was Collected: 04/08/25
Time Specimen was Collected: 12:21
Urine Microscopic Reflex Cult Urgent
04/08/25 14:54
Fosfomycin [Monurol] 3 gm PO ONCE ONE
Abnormal Lab Results
04/08/25 04/08/25
12:26 13:33
WBC 12.9 H 10^3/uL
(4.8-10.8)
RBC 3.34 L 10^6/uL
(4.20-5.40)
Hgb 10.6 L g/dL
(12.0-16.0)
Hct 31.5 L %
(37.0-47.0)
MCH 31.7 H pg
(27.0-31.0)
RDW 16.6 H %
(11.5-14.5)
Abs Immat Gran (auto) 0.1 H 10^3/uL
(0-0.05)
Absolute Neuts (auto) 11.5 H 10^3/uL
(1.4-6.5)
Absolute Lymphs (auto) 0.9 L 10^3/uL
(1.2-3.4)
Immature Gran % 0.7 H %
(0-0.5)
Neutrophils % 89.5 H %
(42.2-75.2)
Lymphocytes % 7.1 L %
(20.5-51.1)
BUN 22 H mg/dl
(7-17)
Glucose 284 H mg/dl
(70-99)
Urine Bacteria (Reflex) Few A
(Negative)
Urine Glucose 4+ A
(Negative)
Urine Albumin (Reflex) 2+ A
(Neg - Trace)
04/08/25 12:26
04/08/25 12:26
Vital Signs
Initial and Last Documented VS:
Initial Vital Signs
Temp Pulse Resp BP Pulse Ox
97.9 F 108 18 154/113 97
04/08/25 12:18 04/08/25 12:18 04/08/25 12:18 04/08/25 12:18 04/08/25 12:18
Last Documented Vital Signs
Temp Pulse Resp BP Pulse Ox
98.5 F 108 18 172/76 87
04/08/25 14:00 04/08/25 12:18 04/08/25 12:18 04/08/25 14:00 04/08/25 14:15
MDM/Problems Addressed
Differential Diagnosis Includes:
Note:
CHIEF COMPLAINT(S)
Increased urinary frequency and confusion.
HISTORY OF PRESENT ILLNESS
The patient is an 84-year-old female with a relevant past medical history of diabetes mellitus and hemolytic anemia who presented with increased urinary frequency and confusion. The symptoms began escalating around 10:30 AM. The patient�s caregiver
reported that she appeared more confused than her baseline. It was noted that her heart rate was elevated upon examination by the nurses. Currently, she is on metformin, taking it twice daily, and utilizes a sliding scale insulin regimen if her
blood sugar levels exceed 300 mg/dL.
The patients confusion and frequent urination have been associated with elevated blood glucose levels, noted to be 284 mg/dL upon examination, without evidence suggestive of diabetic ketoacidosis. The history of hemolytic anemia is managed currently
with Rituximab infusions, showing stabilization of hemoglobin levels at 10.6 g/dL. She has previously been on prednisone, and is currently taking 5 mg prednisolone every other day.
The patient has also been experiencing dry mouth and might drink fluids due to a sensation of needing hydration. There is noted swelling in the legs. We discussed insulin today but she just received a shot of insulin before coming to the ED
EXAMINATION FINDING
The healthcare provider observed that the patient can follow instructions correctly when asked to lift her arms and legs, indicating maintained motor function.
PAST MEDICAL AND SURIGICAL HISTORY
- Diabetes Mellitus
- Hemolytic anemia
CHRONIC MEDICAL CONDITIONS SIGNIFICANTLY AFFECTING CARE
- Diabetes Mellitus
- Hemolytic anemia
SOCIAL DETERMINANTS AFFECTING HEALTH
- None mentioned.
MEDICATIONS
- Metformin, twice daily
- Prednisolone, 5 mg every other day
- Sliding scale insulin as per blood sugar levels
REVIEW OF SYSTEMS
- Increased urinary frequency
- Confusion greater than baseline
PHYSICAL EXAM
General: Alert, no acute distress.
Skin: Warm, dry.
Head: Normocephalic, atraumatic
Neck: Appears supple, trachea midline.
Eyes, Ears, Nose, Mouth, and Throat: Dry mucous membranes
Cardiovascular: No signs of cyanosis. Regular rate and rhythm
Respiratory: Respirations are non-labored.
Abdomen: Non-distended
Musculoskeletal: Slight edema to both ankles
Neurological: No focal neurological deficit observed.
Psychiatric: Cooperative, appropriate mood and affect.
PROBLEM LIST
Acute Problems:
- Confusion
- Increased urinary frequency
Chronic Problems:
- Diabetes Mellitus
- Hemolytic anemia
PLAN
- Administer intravenous fluids to address the potential dehydration.
- Monitor glucose levels and administer a small dose of insulin to reduce blood glucose to normal levels.
- Conduct urinalysis to rule out or confirm urinary tract infection.
- Regular monitoring of hemoglobin levels to track anemia status.
DIFFERENTIAL DIAGNOSIS
The Differential Diagnosis includes, in no particular order and is not limited to:
1. Urinary tract infection
2. Hyperglycemia related to diabetes
3. Electrolyte imbalance
4. Urinary incontinence
5. Dementia exacerbation
6. Acute confusion state
7. Dehydration
8. Hypoglycemia
9. Anemia progression
10. Adverse drug reaction
SUMMARY OF ENCOUNTER
The patient, an 84-year-old female, presented to the emergency department due to increased urinary frequency and confusion. These symptoms were attributed to elevated blood glucose levels and potential dehydration. Upon examination, no signs of
diabetic ketoacidosis were noted. The patient was reassured, and her condition was discussed, particularly focusing on the possibility that increased urination could be related to hyperglycemia, which might be exacerbated by her diabetes and current
steroid use. It was decided to manage her blood sugar levels more tightly.
DISPOSITION
Discharge
ASSESSMENT
The patient is likely experiencing symptoms related to hyperglycemia and mild dehydration due to her diabetes mellitus and steroid usage.
PLAN
The patient will receive management guidance for blood glucose control. Discharge with necessary instructions for managing her diabetes and ensuring adequate hydration. Consideration of managing her in a facility where she feels comfortable and
supported, as discussed.
INDEPENDENT REVIEW OF LABS AND INTERPRETATION OF TESTS
My independent review of urinalysis indicates mild bacteriuria.
FOLLOW-UP INSTRUCTIONS
Please call the office immediately to schedule a follow-up visit with your primary care physician to ensure continuous monitoring and adjustment of diabetes management as necessary.
MEDICATION RECONCILIATION
Administered a dose of antibiotic for mild bacteriuria. Ongoing medications include metformin and a sliding scale insulin regimen.
MEDICAL DECISION MAKING
-Number and Complexity of Problems Addressed: Chronic conditions affecting care include diabetes mellitus and hemolytic anemia. Differential diagnosis considered are urinary tract infection, hyperglycemia related to diabetes, electrolyte imbalance,
urinary incontinence, dehydration, acute confusion state, hypoglycemia, anemia progression, and adverse drug reactions.
-Data:
Category 1: Reviewed urinalysis showing mild bacteriuria.
Category 2: Input from the patient and family discussed regarding the feasibility of home management.
Category 3: Discussion of management with the patient and family regarding tight control of blood sugar and hydration.
-Risk: Prescription medication was prescribed (antibiotic for bacteriuria). Consideration of Admission/Observation: Escalation of care including admission/observation was considered given the complexity and risk of the patients presenting complaint
and underlying conditions. However, ultimately the patient is deemed safe for outpatient management with close follow-up given reassuring work-up, patient comfort, and reliable follow-up capability.
DIAGNOSIS
- Hyperglycemia (E11.65)
- Mild Bacteriuria (N39.0)
- Diabetes Mellitus Type 2 (E11.9)
- Confusion (R41.0)
*Pulse Oximetry
SaO2: 97
Oxygen Mode of Delivery: Room air
Patient hypoxic: no
*Critical Care Note
Total Time (30-74mins, 75-104mins- exclusive of procedures): Not Applicable
ED Attending Note
-
Portions of this chart may have been created with voice recognition software.� Occasional wrong word or��sound alike� substitutions may have occurred due to the inherent limitations of voice recognition software.
Discharge Plan
Departure
Patient Disposition: Home (Routine Discharge)
Date of Disposition: 04/08/25
Time of Disposition: 14:58
Patient with high blood pressure during this ER visit?: Yes
Discharge Problem:
Acute hyperglycemia, Increased urinary frequency
Instructions: BLOOD PRESSURE
Prescriptions:
No Action
atorvastatin 40 mg Tablet
40 mg PO HS
cyanocobalamin (vitamin B-12) 1,000 mcg Tablet
1,000 mcg PO DAILY
aspirin 81 mg Tablet,Delayed Release (Dr/Ec)
81 mg PO DAILY
nortriptyline 10 mg Capsule
20 mg PO HS
furosemide 20 mg Tablet
20 mg PO MOWEFR
cholecalciferol (vitamin D3) [Vitamin D3] 25 mcg (1,000 unit) Tablet
25 mcg PO DAILY
metformin 500 mg Tablet
1,000 mg PO BID@0800,1700 Qty: 120 0RF
Januvia 100 mg Tablet
100 mg PO DAILY Qty: 30 0RF
(DME) Contour Next Test Strips Strip
Qty: 200 0RF
Rx Instructions:
As Directed
(DME) lancets [Color Lancets] 21 gauge Misc
Qty: 200 0RF
Rx Instructions:
As Directed
(DME) pen needle, diabetic [Ultra-Fine Pen Needle] 29 gauge x 1/2' needle
See Rx Instructions .Route Qty: 100 0RF
Rx Instructions:
As directed
latanoprost 0.005 % Drops
1 drp OPHTHALMIC (EYE) DAILY
prochlorperazine maleate 10 mg Tablet
10 mg PO Q6H PRN (Reason: nausea)
ondansetron 8 mg Tablet,Disintegrating
8 mg PO Q8H PRN (Reason: nausea)
calcitonin (salmon) 200 unit/actuation [place],Non-Aerosol
1 spray INTRANASAL (ALT) DAILY
folic acid 1 mg Tablet
1 mg PO DAILY
insulin lispro [Humalog U-100 Insulin] 100 unit/mL Solution
1 sliding scale dose SC DIRECTED
dorzolamide 2 % Drops
1 drp OPHTHALMIC (EYE) BID
Rx Instructions:
both eyes
prednisone 10 mg tablet
5 mg PO DAILY
Referrals:
Jenifer Raza MD [Family Provider, Family Practice]
Activity Restrictions/Additional Instructions:
Please return for any worsening symptoms.
You may return at any time if you have further concerns.
Please follow up with your doctor at the first available appointment, preferably this week.
Thank you for choosing [facility].
Interventions
Interventions:
*Risk Screen - Suicide Last Done: 04/08/25 12:18
*General Assessment Last Done: 04/08/25 14:30
*Neglect/Abuse Screening Last Done: 04/08/25 14:30
*ED- Fall Risk Assessment Last Done: 04/08/25 14:30
*ED COVID-19 Vaccine History Last Done: 04/08/25 14:30
ED-Female Genitourinary Assessment Last Done: 04/08/25 14:30
Discharge Date and Time
Print Language: TURKMEN
[2025-04-08] MEDS: NSS 500 IV (13:26)
[2025-04-08 13:34] VITALS: BP 156/84
[2025-04-08 13:41] LABS: Urine Character Clear (Clear)
[2025-04-08 13:52] LABS: Urine Squamous Cell 0-2 /LPF (Few)
[2025-04-08 13:53] LABS: Urine Red Blood Cell 0-2 /HPF (0-2); Urine White Cell 0-2 /HPF (0-5)
[2025-04-08 14:00] VITALS: BP 172/76
[2025-04-08 14:28] VITALS: BMI 19.0
[2025-04-08] MEDS: MONUROL 3 GM PO (15:15)
== END 2025-04-08 15:37 | disposition home or self-care (01) ==
LOC: EMR 12:14
PROVIDERS: Emergency Medicine; EMERGENCY PHYSICIAN Student in an Organized Health Care Education/Training Program; FAMILY PHYSICIAN Family Medicine
DX: E11.65 Type 2 diabetes mellitus with hyperglycemia (principal); E86.0 Dehydration; I10 Essential (primary) hypertension; E78.00 Pure hypercholesterolemia, unspecified; Z79.84 Long term (current) use of oral hypoglycemic drugs
CPT/HCPCS: 96360; 99284; 80053; 81003; 81015; 85025

== ENCOUNTER 2025-04-12 11:51 | Inpatient (IN) | payer MEDICARE, OTHER, SELFPAY ==
[2025-04-11] VITALS (7 sets, daily range): BP systolic 142–167; BP diastolic 76–98; BMI 16.5
[2025-04-11] MEDS: TYLENOL 650 MG PO (19:26)
--- NOTE | 2025-04-11 23:09 | ED.GENMED ---
History of Present Illness
General
Chief Complaint: Fall
Source: patient and family
Exam Limitations: none
Time Seen by Provider: 04/11/25 18:53
Nursing documentation reviewed up to this point in time: agreed with
History of Present Illness
History of Present Illness:
Note:
CHIEF COMPLAINT(S)
Fall leading to injury, headache, and pain in the buttocks.
HISTORY OF PRESENT ILLNESS
The patient is an 84-year-old female who experienced a fall today. According to a family member, the patient was using a wheelchair as usual. However, upon reaching the first floor with the family, it was noticed that the patient did not have her
walker. The patient was seated while the family member went to retrieve the walker. During this timeframe, the patient presumably attempted to stand and subsequently fell. The fall was unwitnessed, but it was noted that her head was near a vase on
the floor, potentially indicating she hit her head. The patient reported headache and pain in the buttocks. She also noted feeling cold but denied numbness or tingling. On examination, palpation around the pelvic region elicited pain. The patient
did not have falls yesterday but had two falls earlier in the week at another location.
PLAN
1. Obtain CT scans of the pelvis, head, and neck to evaluate for potential injuries from the fall.
2. Administer acetaminophen for pain management.
3. Evaluate results of CT scans; if clear, assess the patients ability to mobilize with a walker to ensure safe discharge.
PHYSICAL EXAM
General: Alert, no acute distress.
Skin: Warm, dry.
Head: Normocephalic, atraumatic.
Neck: Supple, trachea midline.
Eyes, Ears, Nose, Mouth and Throat: Oral mucosa moist.
Cardiovascular: Normal peripheral perfusion, no edema.
Respiratory: Respirations are non-labored.
Gastrointestinal: Abdomen nondistended.
Back: Normal range of motion, normal alignment.
Musculoskeletal: Normal range of motion, normal strength; pain on pelvic palpation.
Neurological: Alert and oriented to person, place, time, and situation; no focal neurological deficit observed.
Psychiatric: Cooperative, appropriate mood and affect.
DIFFERENTIAL DIAGNOSIS
The differential diagnosis includes, in no particular order and is not limited to:
1. Traumatic brain injury
2. Subdural hematoma
3. Concussion
4. Pelvic fracture
5. Hip fracture
6. Vertebral compression fracture
7. Rib fracture
8. Spinal cord injury
9. Intracranial hemorrhage
10. Soft tissue injury
Disposition:
SUMMARY OF ENCOUNTER
The patient, an 84-year-old female living in independent living with her 87-year-old , was seen in the emergency department due to a fall incident. She is strictly wheelchair-bound but attempted to ambulate with her , resulting in her
falling in the khal[place], striking her head and bottom. Upon evaluation, a transverse sacral fracture was identified, which is non-displaced and minimally painful. The fall aligns with her history of frequent falls, necessitating consideration for social
service intervention and a potential upgrade in the level of care.
DISPOSITION
Admit for further evaluation and management, consider social work assistant involvement for care level assessment due to frequent falls.
ASSESSMENT
The patient presents with a non-displaced transverse sacral fracture following a fall. The presence of frequent falls raises the need for a reassessment of her current living arrangement and level of care.
PLAN
1. Admit the patient for further observation and management of the transverse sacral fracture.
2. Consult social work assistant to assess the necessity for an upgraded level of care.
MEDICAL DECISION MAKING
- Chronic conditions affecting care include assessment of frequent falls and the current living situation impacting her safety and care requirements. Differential diagnosis includes traumatic brain injury, subdural hematoma, concussion, pelvic
fracture, hip fracture, vertebral compression fracture, rib fracture, spinal cord injury, intracranial hemorrhage, and soft tissue injury.
Category 1: No specific tests ordered at this time, initial identification of sacral fracture through imaging.
Category 2: Clinical information was obtained from the patients as an independent historian to provide context on the frequency of falls and living conditions.
Risk: Given the recurrent nature of falls and identified fracture, social determinants of health are significantly impacting care, indicating a need for possible modification in her living situation to reduce risk and prevent future falls.
Past History
Past History
ED Past Medical History: HTN, Hypercholesterolemia and Other (Mitral prolapse)
ED Past Surgical History: None
Social History
Tobacco: Non-smoker
Alcohol: None
Drug: None
Personal:
Living: with family
Review of Systems
Review of Systems
Allergies reviewed?: Yes
All Other Systems: ROS reviewed and negative except as documented in HPI and ROS
Phy Exam
General Physical Exam
General Presentation: well appearing and no apparent distress
General Skin: warm and dry
General Habitus: normal
General Mental: alert
General Hydration: appears well hydrated
ENT Exam
ENT Exam: EOMI, pharynx normal, neck supple and normocephalic
Eye Exam
Eye Exam: PERRL, cornea clear and conjunctiva normal
Cardiovascular Exam
Cardiovascular Exam: regular rate/rhythm, no edema, no murmur and normal peripheral pulses
Pulmonary Exam
Pulmonary Exam: lungs clear, no respiratory distress, no rales, no crackles, no rhonchi, no stridor, no wheezing and no cough
Gastrointestinal Exam
Gastrointestinal Exam: normal bowel sounds, non tender, soft, no organomegaly, no pulsatile mass and non distended
Neurological Exam
Neurological Exam: alert, oriented x3, no motor deficits and speech normal
Musculoskeletal Exam
Musculoskeletal Exam: full ROM, no edema, neuro vasc intact and other (Mild sacral pain to palpation)
Skin Exam
Skin Exam: normal color, warm/dry, no rash and no petechia
Psychiatric Exam
Psychiatric Exam: normal mood/affect and labile
Course
Orders/Labs/Results
Orders:
Orders
04/11/25 19:09
CT Cervical Spine W/o Iv Contr Urgent
Comment:
Reason For Exam: Fall, head strike, hip pain
CT Pelvis W/o Iv Contrast Urgent
Comment:
Reason For Exam: Fall, head strike, hip pain
Acetaminophen [Tylenol] 650 mg PO NOW STA
04/11/25 19:10
CT Head W/o Iv Contrast Urgent
Comment:
Reason For Exam: Fall, head strike, hip pain
04/11/25 23:26
Case Management Consult ONCE
Case Management Consult: Skilled Nursing Placement
04/11/25 23:33
CBC/With Diff [Complete Blood Count/With Diff] Urgent
CMP [Comprehensive Metabolic Panel] Urgent
04/11/25 23:35
Admit/Transfer Patient As Directed
Co-Sign Provider:
Level of Care: Observation services
Assign to:: Medical/Surgical
Physician / Group: Jorge Alberto
Diagnosis: Sacral Fracture
PRN Pain Medication Management As Directed
May give lesser potent ordered pain med per pt: Yes
preference::
Protocol:: Medication orders for pain may be administered in a
manner that supports deferring to patient preference
when the pt is:
- Requesting an ordered lesser potent pain medication.
Least to most potent pain medications are defined
as: acetaminophen < NSAID < tramadol < opioids
(morphine, oxycodone, hydromorphone).
- Requesting a lesser dose of the same medication IF
ORDERED.
- Requesting a less intrusive route of administration
if both routes are prescribed by the provider (PO <
IV).
04/11/25 23:36
Code Status As Directed
Resuscitation Status: Full Code
Abnormal Lab Results
04/11/25
23:08
POC Glucose 147 H mg/dl
(70-99)
Vital Signs
Initial and Last Documented VS:
Initial Vital Signs
Temp Pulse Resp BP Pulse Ox
97.8 F 99 16 167/96 100
04/11/25 17:20 04/11/25 17:20 04/11/25 17:20 04/11/25 17:20 04/11/25 17:20
Last Documented Vital Signs
Temp Pulse Resp BP Pulse Ox
97.8 F 96 22 158/98 91
04/11/25 17:20 04/11/25 20:45 04/11/25 20:45 04/11/25 23:00 04/11/25 23:30
*Radiology
Radiology exam reviewed: radiology read reviewed
*Pulse Oximetry
SaO2: 85
Oxygen Mode of Delivery: Room air
Patient hypoxic: not evaluated
*Critical Care Note
Total Time (30-74mins, 75-104mins- exclusive of procedures): Not Applicable
ED Attending Note
-
Portions of this chart may have been created with voice recognition software.� Occasional wrong word or��sound alike� substitutions may have occurred due to the inherent limitations of voice recognition software.
Discharge Plan
Departure
Patient Disposition: Admit
Date of Disposition: 04/11/25
Time of Disposition: 23:10
Admit to: Med/Surg
Presentation/result/management discussed w/ accepting MD/DO: Hospitalist
Condition: Fair
Discharge Problem:
Sacral fracture, Frequent falls, Ambulatory dysfunction
Prescriptions:
No Action
atorvastatin 40 mg Tablet
40 mg PO HS
cyanocobalamin (vitamin B-12) 1,000 mcg Tablet
1,000 mcg PO DAILY
aspirin 81 mg Tablet,Delayed Release (Dr/Ec)
81 mg PO DAILY
nortriptyline 10 mg Capsule
20 mg PO HS
furosemide 20 mg Tablet
20 mg PO MOWEFR
cholecalciferol (vitamin D3) [Vitamin D3] 25 mcg (1,000 unit) Tablet
25 mcg PO DAILY
metformin 500 mg Tablet
1,000 mg PO BID@0800,1700 Qty: 120 0RF
Januvia 100 mg Tablet
100 mg PO DAILY Qty: 30 0RF
(DME) Contour Next Test Strips Strip
Qty: 200 0RF
Rx Instructions:
As Directed
(DME) lancets [Color Lancets] 21 gauge Misc
Qty: 200 0RF
Rx Instructions:
As Directed
(DME) pen needle, diabetic [Ultra-Fine Pen Needle] 29 gauge x 1/2' needle
See Rx Instructions .Route Qty: 100 0RF
Rx Instructions:
As directed
latanoprost 0.005 % Drops
1 drp OPHTHALMIC (EYE) DAILY
prochlorperazine maleate 10 mg Tablet
10 mg PO Q6H PRN (Reason: nausea)
ondansetron 8 mg Tablet,Disintegrating
8 mg PO Q8H PRN (Reason: nausea)
calcitonin (salmon) 200 unit/actuation [place],Non-Aerosol
1 spray INTRANASAL (ALT) DAILY
folic acid 1 mg Tablet
1 mg PO DAILY
insulin lispro [Humalog U-100 Insulin] 100 unit/mL Solution
1 sliding scale dose SC DIRECTED
dorzolamide 2 % Drops
1 drp OPHTHALMIC (EYE) BID
Rx Instructions:
both eyes
prednisone 10 mg tablet
5 mg PO DAILY
Referrals:
Jenifer Raza MD [Family Provider, Family Practice]
Interventions
Interventions:
*Risk Screen - Suicide Last Done: 04/11/25 17:20
*General Assessment Last Done: 04/11/25 19:20
*Neglect/Abuse Screening Last Done: 04/11/25 19:20
*ED- Fall Risk Assessment Last Done: 04/11/25 19:20
*ED COVID-19 Vaccine History Last Done: 04/11/25 19:20
ED-Musculoskeletal Assessment Last Done: 04/11/25 19:20
ED- Neurological Assessment Last Done: 04/11/25 19:20
ED-Skin Assessment Last Done: 04/11/25 19:20
Discharge Date and Time
Print Language: ARABIC
[2025-04-11 23:10] LABS: Glucose - Point of Care 147 mg/dl (70-99)
--- NOTE | 2025-04-11 23:17 | HPS.HSE ---
Addendum entered and electronically signed by Jamie Azul DO 04/12/25 00:18:
Patient seen and examined independently. Agree with findings and plan as set forth by Amparo Soriano PA-C.
Patient is an 84y F with PMH significant for ASCVD, hypertension and senile dementia who presents to ED for evaluation of frequent falls. Patient has seemed more confused over this past weekend per family. She was seen here in the ED on Wednesday
after a fall. She has had 2-3 falls since that time - including an unwitnessed fall today. Patient complained of some lower back pain after the fall and was brought to the ED for further evaluation.
She has had no recent fevers / chills, cough, dyspnea, N/V/D or urinary complaints.
Ass:
Ambulatory Dysfunction / Fall
Sacral Fracture
ASCVD
Benign Hypertension
Autoimmune Hemolytic Anemia
DM-II
Senile Dementia
Emphysema / Hypoxemia
Plan:
Observe overnight for further evaluation and treatment.
CXR pending given recent weakness and noted hypoxemia.
Prior films with significant emphysematous changes - though no formal diagnosis of COPD.
Supplemental oxygen if needed. Follow for any cough, fever, etc.
Pain control for sacral fracture - no pain at rest / at present.
PT eval in the AM.
Formal med rec in AM and resume usual meds as appropriate.
Original Note:
Family Physician
-
Family Physician: Jenifer Raza
Chief Complaint
-
Frequent Falls
History of Present Illness
Patient is an 84 y/o female past medical history CAD, DM, HTN, Anemia, and Dementia who presents with frequent falls. Patient was noted to be more confused over the weekend. She was seen in the emergency department on Apr 08 and noted to have
hyperglycemia which was felt to be related to prednisone. Patient was discharged home however since that time she has had several falls. Today patient fell and hit her head on metal vase. Following the she was complaining about back pain prompting
family to return to the emergency department for evaluation. Work-up revealed a sacral fracture.
Medical History
Past Medical History
Past Medical History: Reports Other
Additional Past Medical History:
Coronary Artery Disease
Diabetes Mellitus, Type II
Essential Hypertension
Hyperlipidemia
Acquired Autoimmune Hemolytic Anemia
Alzheimer's Dementia
Past Surgical History: Reports Other
Additional Past Surgical History:
Cataract Surgery
Hemorrhoid Surgery
Social History
Tobacco: Non-smoker
Personal:
Living: Assisted Living
Family History
Family History: Not pertinent
Allergies / Home Medications
Allergies reflects when Allergies were last updated in [facility].
Home Medications with original date entered in [facility]
Allergy/Medication List:
Medications on admission are unable to be verified or confirmed at this time.
If medication reconciliation has not been performed, why?: Medication List N/A
Review of Systems
-
Unable to obtain full review of systems at this time due to: Dementia
Respiratory: Denies Cough or Trouble Breathing
Cardiac: Reports Chest Pain and Palpitations
Physical Exam
Vital Signs
Vital Signs
Temp Pulse Resp BP Pulse Ox
97.8 F 96 22 145/81 85
04/11/25 17:20 04/11/25 20:45 04/11/25 20:45 04/11/25 22:00 04/11/25 23:12
Physical Exam
General: Comfortable and Conversant
HEENT: Anicteric and Moist mucous membranes
Respiratory: Clear and Non Labored Respirations
Cardiac: S1/S2 and Regular Rhythm
GI: Soft and Non Tender
Rectal: Deferred by Provider
Musculoskeletal: No Clubbing, No Cyanosis and Other (Trace lower extremity edema)
Skin: Warm and Dry
Neuro: Awake, Alert and Nonfocal/grossly intact
Psych: Calm
Laboratory Results
-
Head CT:
No acute intracranial abnormality.
Cervical Spine CT:
No CT evidence for an acute posttraumatic abnormality of the cervical spine.
Partially imaged right pleural effusion and interlobular septal thickening in the bilateral lung apices, most suspicious for pulmonary edema.
Pelvis CT:
No CT evidence for a hip fracture.
Nondisplaced, transverse fracture through the sacrum at the S3-S4 level.
Data Reviewed
-
CT Scan: Report Reviewed by me
Impression/Plan
-
Sacral Fracture
-Start Tylenol 1000mg TID
-Add Toradol prn moderate pain, and oxycodone prn severe pain
Ambulatory Dysfunction with Frequent Fall
-Consult PT/OT
-Check orthostatic vital signs
Diabetes Mellitus, Type II
-Monitor sugars and continue coverage insulin
Acquired Autoimmune Hemolytic Anemia
-Unclear if patient is taking prednisone - Attempt to obtain medication list from [facility]
-Hgb stable
Alzheimer's Dementia
-Monitor for mood/behavior changes during hospitalization
DVT proph: SCDs
Code Status: Full Code
[2025-04-11 23:50] LABS: Hematocrit 31.8 % (37.0-47.0); Hemoglobin 10.9 g/dL (12.0-16.0); Mean Corp Hgb Conc. 34.3 g/dL (33.0-37.0); Mean Corpuscular Volume 93.5 fL (81.0-99.0); Nucleated Red Blood Cells % 0 %; Platelet Count 244 10^3/uL (130-400); Red Cell Dist. Width 16.2 % (11.5-14.5)
[2025-04-12] VITALS (13 sets, daily range): BP systolic 130–167; BP diastolic 69–103; PULSE 98–110; O2SAT 95–96; BMI 18.3; BMI 18.2; BMI 18.0
[2025-04-12 00:14] LABS: ALT (SGPT) 21 U/L (0-35); AST (SGOT) 19 U/L (14-36); Albumin 4.0 g/dl (3.5-5.0); Alkaline Phosphatase 68 U/L (38-126); Blood Urea Nitrogen 19 mg/dl (7-17); Calcium 9.1 mg/dl (8.4-10.2); Carbon Dioxide 27 mmol/L (22-30); Chloride 105 mmol/L (98-107); Estimated Creatinine Clearance 46 ml/min; Glucose 151 mg/dl (70-99); Potassium 4.0 mmol/L (3.5-5.1); Sodium 140 mmol/L (135-145); Total Protein 6.1 g/dl (6.3-8.2); eGFR > 60.00
[2025-04-12 08:44] LABS: Glucose - Point of Care 162 mg/dl (70-99)
[2025-04-12] MEDS: TYLENOL 1000 MG PO ×3 (09:15→21:05)
[2025-04-12] MEDS: NOVOLOG FLEXPEN-LOW RESISTANCE SC (11:02)
[2025-04-12 11:38] LABS: Glucose - Point of Care 278 mg/dl (70-99)
--- NOTE | 2025-04-12 11:46 | W.PN.HOSP.TC ---
Today's Communication/Plan
-
see outlined plan below
Assessment / Plan
Assessment / Plan
Assessment:
Acute hypoxic respiratory insufficiency on 2L
Suspected acute CHF (unknown type) in setting of unknown valvular HD
- obtain records from [facility] and portainer operator outpatient
- CXR: Findings suggest congestive heart failure/pulmonary edema. Soft tissue density in the right hilum could be fluid however adenopathy or mass is difficult to exclude. Follow-up with chest x-ray following treatment, or CT of the chest would be
recommended
- f/u CT chest ordered
- 2D Echo
- BNP/trop
- IV Lasix 40mg now; requires intensive monitoring I/Os, weights, lytes
- DCA cards eval
Sacral Fracture, traumatic from mechanical fall (no syncope)
- continue Tylenol 1g TID
- add lidocaine patches
Ambulatory Dysfunction with Frequent Fall
- consult PT/OT
- check orthostatic vital signs
Diabetes Mellitus, Type II
- Monitor sugars and continue coverage insulin
Acquired Autoimmune Hemolytic Anemia
- Unclear if patient is taking prednisone - Attempt to obtain medication list from [facility]
- Hgb stable
Alzheimer's Dementia
- Monitor for mood/behavior changes during hospitalization
DVT proph: SCDs
Code Status: Full Code
pending med rec
Anticipated Discharge: > 48 hours
Subjective/Interval History
-
Date of Service: April 12, 2025
at present, comfortably, no back pain while laying flat in bed
denies SOB but is on 2L NC - new
reports weeks of edema leading up to hospitalization and also unknown valvular heart disorder
Objective Data
-
Labs:
Laboratory Results
04/11/25
23:33
WBC 9.5
Hgb 10.9 L
Hct 31.8 L
Plt Count 244
Sodium 140
Potassium 4.0
Chloride 105
Carbon Dioxide 27
BUN 19 H
Creatinine 0.6
Glucose 151 H
Calcium 9.1
Total Bilirubin 0.9
AST 19
ALT 21
Alkaline Phosphatase 68
Vital Signs:
Vital Signs
Temp Pulse Resp BP Pulse Ox
97.6 F 99 16 151/78 96
04/12/25 11:29 04/12/25 11:29 04/12/25 11:29 04/12/25 11:29 04/12/25 11:29
I&O
04/11/25 04/12/25 04/13/25
06:59 06:59 06:59
Output Total 600 / 600
Balance -600 / -600
Physical Exam
-
General: No Apparent Distress
HEENT: Normocephalic and Atraumatic
Respiratory: Crackles
Cardiac: Regular Rhythm and S1/S2
GI: Soft
Musculoskeletal: Edema, Right Lower Extrem and Edema, Left Lower Extrem
Neuro: AO x 3
Psych: Calm
Data Reviewed
-
Total Time Spent with Patient (in minutes): 51
Labs: Labs Reviewed by me
[2025-04-12] MEDS: NOVOLOG FLEXPEN-LOW RESISTANCE 3 UNITS SC ×2 (11:58→17:17)
[2025-04-12] MEDS: LASIX 40 MG IV (12:35)
[2025-04-12 12:48] LABS: Troponin I 0.026 ng/ml
--- NOTE | 2025-04-12 12:54 | CON.CAR ---
Addendum entered and electronically signed by Carlos Romo MD 04/12/25 15:54:
Patient seen and examined in collaboration with DATA CLERK; agree with below.
- 84-year-old female (known to an outside Renal Technician) with moderate to severe mitral stenosis (conservative management), hypertension, recurrent falls, and significantly progressive dementia presenting admitted for a fall with subsequent sacral
fracture; cardiology consulted for CHF.
- Echocardiogram today revealed an LVEF of 35-35%, which is new; additionally, has moderate to severe mitral stenosis, severe mitral regurgitation, and mild to moderate tricuspid regurgitation.
- The patient will be managed conservatively from a cardiac standpoint; poor candidate for aggressive measures (this was also determined by her primary Renal Technician in the outpatient setting).
- Continue Lasix 40 mg IV daily for now.
- GDMT as able: Will start Toprol-XL, Farxiga, and lisinopril; can try to add spironolactone later this admission if possible.
Original Note:
Consultation
Consultation Request
Date/Time Consultation Requested: 04/12/25 1141
Date/Time Consultation Performed: 04/12/25 1255
Requesting Provider: Dr. Christianson
Performing Provider: Guillermina QUAN for Dr. Romo
Reason for Consultation: CHF, valve disease
Medical History
-
Chief Complaint: fall
History of Present Illness:
84 y/o female (patient of Dr. Taylor, [facility]) with mitral stenosis (approaching severe per OP chart - MVA 1.6 cm2 and mg 8 mmHg), hemolytic anemia, hypertension, dyslipidemia, hx syncope, edema, DM2, pSVT, dementia, and mild non-obstructive CAD who
has had recent falls (losing balance per ) and not acting herself (memory worse, decision-making issues). On the day of admit, she had a particularly bad fall. Imaging revealed sacral fracture. She was seen to have acute hypoxic respiratory
insufficiency requiring O2 by NC. BNP 7350, CXR suggestive CHF. She is in no distress at the time of my assessment. She is a poor historian due to mental status/dementia.
Past Medical History
Past Medical History: CAD, HTN, Hypercholesterolemia, NIDDM, Valvular Disease and Other (as above)
Social History
Personal:
Living: With Family
Family History
Family History: Reviewed & Not Pertinent
Allergies / Home Medications
Allergy/AdvReac Type Severity Reaction Status Date / Time
tramadol HCl (From Ultracet) AdvReac Nausea Verified 04/11/25 17:19
�Medication �Instructions �Recorded �Confirmed �Type
aspirin 81 mg tablet,delayed 81 mg PO DAILY Blood Clot 12/14/24 04/12/25 History
release Prevention/Tx
atorvastatin 40 mg tablet 40 mg PO HS High Cholesterol 12/14/24 04/12/25 History
cholecalciferol (vitamin D3) 25 25 mcg PO DAILY Supplement 12/14/24 04/12/25 History
mcg (1,000 unit) tablet (Vitamin
D3)
cyanocobalamin (vitamin B-12) 1,000 mcg PO Q OTHER DAY Supplement 12/14/24 04/12/25 History
1,000 mcg tablet
furosemide 20 mg tablet (Lasix) 20 mg PO Q OTHER DAY Fluid 12/14/24 04/12/25 History
Retention/Swelling
nortriptyline 10 mg capsule 20 mg PO HS Mental Health/Anxiety 12/14/24 04/12/25 History
blood sugar diagnostic (Contour #200 ea 12/18/24 04/12/25 Rx
Next Test Strips)
lancets 21 gauge (Color Lancets) #200 ea 12/18/24 04/12/25 Rx
metformin 500 mg tablet 1,000 mg (2 x 500 mg) PO 12/18/24 04/12/25 Rx
BID@0800,1700 #120 tabs
pen needle, diabetic 29 gauge x #100 ea 12/18/24 04/12/25 Rx
1/2' (Ultra-Fine Pen Needle)
sitagliptin phosphate 100 mg 100 mg PO DAILY #30 tabs 12/18/24 04/12/25 Rx
tablet (Januvia)
calcitonin (salmon) 200 1 spray intranasal (ALT) DAILY 02/18/25 04/12/25 History
unit/actuation nasal spray
dorzolamide 2 % eye drops 1 drp ophthalmic (eye) BID 02/18/25 04/12/25 History
folic acid 1 mg tablet 1 mg PO DAILY 02/18/25 04/12/25 History
insulin lispro 100 unit/mL 1 sliding scale dose SC DIRECTED 02/18/25 04/12/25 History
subcutaneous solution (Humalog
U-100 Insulin)
latanoprost 0.005 % eye drops 1 drp ophthalmic (eye) DAILY 02/18/25 04/12/25 History
ondansetron 8 mg disintegrating 8 mg PO Q8H PRN nausea 02/18/25 04/12/25 History
tablet
prednisone 10 mg tablet 5 mg PO DAILY 02/18/25 02/18/25 History
prochlorperazine maleate 10 mg 10 mg PO Q6H PRN nausea 02/18/25 04/12/25 History
tablet
acetaminophen 500 mg tablet 1,000 mg PO Q4H 04/12/25 04/12/25 History
donepezil 5 mg tablet 5 mg PO HS 04/12/25 04/12/25 History
nystatin 100,000 unit/gram topical 1 applic topical BID Rash 04/12/25 04/12/25 History
cream
wound dressings (Triad Wound 1 applic topical DAILY Erythema 04/12/25 04/12/25 History
Dressing paste)
Review of Systems
-
Unable to obtain full review of systems at this time due to: Dementia
History Source: Family and Other (chart)
Musculoskeletal: Other (falls)
Neurological: Other (change in MS)
Physical Exam
Vital Signs
Temp Pulse Resp BP Pulse Ox
97.6 F 102 16 151/82 96
04/12/25 11:29 04/12/25 12:35 04/12/25 11:29 04/12/25 12:35 04/12/25 11:29
Lab Results
04/11/25 23:33
04/11/25 23:33
Troponin I 0.026 ng/ml 04/12/25 12:13
Qzp-O-Qvayfehfpvo Pept 7340 pg/ml 04/12/25 12:13
Physical Exam
General: Well Developed and No Apparent Distress
HEENT: Normocephalic and Anicteric
Cardiac: Regular Rhythm
Musculoskeletal: Edema
Skin: Warm and Dry
Neuro: Awake and Alert
Psych: Calm
Impression / Plan
-
Falls with sacral fracture:
-PT/OT c/s
-management per primary
Worsening mental status- more confusion per :
-head CT negative
-known hx dementia
-w/u and management per primary
Acute HF, type unknown, last EF normal per OP chart, but nothing recent:
-BNP 7350
-known significant mitral stenosis- see below
-agree with IV lasix, which requires intensive monitoring
Mitral stenosis:
-per OP chart, bordering severe and Dr. Taylor does not think good candidate for surgery and that if she develops CHF, he would plan to do best with medical management. She is on EOD lasix and has known LE edema.
-diuresis as above, updating echo
Data Reviewed
-
EKG: Tracing Personally Visualized and interpreted (NSR 72 BPM 12/15/2024. Repeat EKG ordered.)
Radiology: Report Reviewed by me (Findings suggest congestive heart failure/pulmonary edema. Soft tissue density in the right hilum could be fluid however adenopathy or mass is difficult to exclude. Follow-up with chest x-ray following treatment, or
CT of the chest would be recommended)
Medical Tests (Nuc Med, Echo etc): Other (echo pending)
Labs: Labs Reviewed by me
Old Records: Reviewed (as described)
[2025-04-12] MEDS: TRUSOPT 2% OPHTHALMIC SOLUTION 1 DROP OPHTH ×2 (15:10→20:56)
[2025-04-12] MEDS: LIDOCAINE 4% PATCH 2 PATCH TOPICAL (15:11)
--- NOTE | 2025-04-12 15:19 | CM ---
Met with patient to obtain information for assessment. Patient's spouse was at bedside and patient was at test. Patient's spouse stated that patient lives with her at [facility]. She does receive assistance with her bathing,
dressing, and all ADLs. She uses a w/c for long distances and for short distances she uses a walker. She had VN in the distant past. She has not been to a SNF.
Patient a prescription plan and uses, [facility] in [place] for all of her medications.
Her PCP is, Jenifer Raza.
Plan: Spouse would like for patient to return to [facility] when medically stable. Will watch for needs.
[2025-04-12 15:22] LABS: Glycohemoglobin (HgbA1c) 6.9 % (4.0-5.6)
--- NOTE | 2025-04-12 16:21 | CM ---
Received referral from ACADEMIC DIRECTOR for Cardio to check villanueva on Farxiga 10 mg and Jardiance 10 mg. Placed a call to [facility] and spoke with pharmacist who stated that she would be unable to check a villanueva if she does not have the actual script for both.
Received TT back from Guillermina who stated that she will fax in script for one or the other and if one is very expensive she will then check other
TT ACADEMIC DIRECTOR to determine if scripts for both can be sent and whichever is higher would be reshelved.
[2025-04-12] MEDS: TOPROL XL 25 MG PO (17:08)
[2025-04-12] MEDS: ZESTRIL 5 MG PO (17:12)
[2025-04-12 17:18] LABS: Glucose - Point of Care 298 mg/dl (70-99)
[2025-04-12] MEDS: REMOVE LIDOCAINE PATCH 1 PATCH REMOVE (20:56)
[2025-04-12] MEDS: PAMELOR 20 MG PO (21:02)
[2025-04-12] MEDS: LIPITOR 40 MG PO (21:02)
[2025-04-12] MEDS: ARICEPT 5 MG PO (21:02)
[2025-04-12 21:22] LABS: Glucose - Point of Care 232 mg/dl (70-99)
[2025-04-12] MEDS: XALATAN OPHTHALMIC SOLUTION 1 DROP OPHTH (22:10)
[2025-04-13] VITALS (9 sets, daily range): BP systolic 126–171; BP diastolic 60–94; PULSE 84–100; O2SAT 98; BMI 18.2
[2025-04-13 08:54] LABS: Glucose - Point of Care 201 mg/dl (70-99)
--- NOTE | 2025-04-13 08:55 | W.PN.CD ---
Today's Communication / Plan
-
- Acute HFrEF (30-35%)--Conservative management; poor candidate for aggressive measures--has been having progressive dementia.
- Has been optimized with GDMT: Started on Toprol-XL 25 mg daily, lisinopril 5 mg daily, and Farxiga 10 mg daily; will add spironolactone 25 mg daily.
- Volume status improved; will transition to Lasix 20 mg PO daily, which should be home dose.
- No further cardiac recommendations at this time; follow-up with primary miniature set constructor as outpatient.
Impression / Plan
-
84 y/o female (patient of Dr. Taylor [facility]) with mitral stenosis (conservative management), hemolytic anemia, hypertension, dyslipidemia, hx syncope, edema, DM2, pSVT, dementia, and mild non-obstructive CAD who has had recent falls (losing balance
per ) and not acting herself (memory worse, decision-making issues). On the day of admit, she had a particularly bad fall. Imaging revealed sacral fracture.
Acute HFrEF (30-35%):
- Conservative management; poor candidate for aggressive measures--has been having progressive dementia.
- Has been optimized with GDMT: Started on Toprol-XL 25 mg daily, lisinopril 5 mg daily, and Farxiga 10 mg daily; will add spironolactone 25 mg daily.
- Volume status improved; will transition to Lasix 20 mg PO daily, which should be home dose.
Valvular heart disease-severe MR, moderate to severe MS:
- Conservative management; poor candidate for aggressive measures.
- Try to maintain good volume status with medications as noted above.
HTN:
- Fairly controlled.
Falls with sacral fracture:
-PT/OT c/s
-management per primary
Dementia--progressive:
-head CT negative
-known hx dementia
- Supportive care.
Physical Exam
Vital Signs/Labs
Vital Signs
Temp Pulse Resp BP Pulse Ox
98.5 F 97 16 171/94 100
04/13/25 08:52 04/13/25 08:52 04/13/25 08:52 04/13/25 08:52 04/13/25 08:52
04/12/25 04/13/25 04/14/25
06:59 06:59 06:59
Actual Weight 42.2 kg 42.326 kg
04/12/25
12:13
Kbj-C-Ncawftgxroi Pept 7340
LAB Results
04/12/25
12:13
Troponin I 0.026
Physical Exam
Constitutional: No acute distress and Comfortable
EENT: Anicteric
Cardiovascular: Rhythm & rate is regular, Pedal edema is absent, Systolic murmur present (/) and S1S2 is normal
Respiratory: Respiratory effort normal and Lungs clear to auscul.
GI: Soft
Neuro/Psych: Alert
Other: Skin (Warm, dry)
Data Reviewed
-
Date of Service: April 13, 2025
EKG: Tracing Personally Visualized and interpreted (Telemetry: Sinus rhythm)
Echo: Tracing Personally Visualized and interpreted (EF 30-35%; moderate to severe MS, severe MR)
Medical Tests (PFT, Pathology etc): Discussed with Patient and Discussed with Family ( at bedside)
Labs: Labs Reviewed by me
[2025-04-13] MEDS: ZESTRIL 5 MG PO (09:10)
[2025-04-13] MEDS: TYLENOL 1000 MG PO ×3 (09:10→20:54)
[2025-04-13] MEDS: ASPIR LOW (ENTERIC COATED) 81 MG PO (09:11)
[2025-04-13] MEDS: TOPROL XL 25 MG PO (09:11)
[2025-04-13] MEDS: FARXIGA 10 MG PO (09:11)
[2025-04-13] MEDS: LIDOCAINE 4% PATCH 2 PATCH TOPICAL (09:11)
[2025-04-13] MEDS: NOVOLOG FLEXPEN-LOW RESISTANCE 2 UNITS SC (09:12)
[2025-04-13] MEDS: TRUSOPT 2% OPHTHALMIC SOLUTION 1 DROP OPHTH ×2 (09:12→20:54)
[2025-04-13] MEDS: ALDACTONE 25 MG PO (09:15)
[2025-04-13 09:31] LABS: Hematocrit 34.6 % (37.0-47.0); Hemoglobin 11.7 g/dL (12.0-16.0); Mean Corp Hgb Conc. 33.8 g/dL (33.0-37.0); Mean Corpuscular Volume 94.3 fL (81.0-99.0); Platelet Count 272 10^3/uL (130-400); Red Cell Dist. Width 16.0 % (11.5-14.5)
--- NOTE | 2025-04-13 09:45 | W.PN.HOSP.TC ---
Today's Communication/Plan
-
GDMT
oral Lasix
wean O2; IS added
DC planning to SNF
Assessment / Plan
Assessment / Plan
Assessment:
Acute hypoxic respiratory insufficiency on 2L
Suspected acute CHF (unknown type) in setting of unknown valvular HD
- obtain records from [facility] and clinical nutritionist outpatient
- CXR: Findings suggest congestive heart failure/pulmonary edema. Soft tissue density in the right hilum could be fluid however adenopathy or mass is difficult to exclude. Follow-up with chest x-ray following treatment, or CT of the chest would be
recommended
- CT: Small to moderate bilateral pleural effusions, right slightly greater than left with accompanying bilateral lower lobe opacification compatible with subsegmental atelectasis and/for pneumonia.
- Echo: EF 30-35%, dilated LA, aortic sclerosis, severe MS, moderate TR
- s/p IV Lasix; now on oral Lasix
- GDMT: Toprol XL/BIBIANA/Farxiga/Aldactone. Monitor BPs
- OP Cardiology follow up. Dr. Taylor
- wean O2 as able; if unable over 24 hours, may need thoracentesis
Sacral Fracture, traumatic from mechanical fall (no syncope)
- continue Tylenol 1g TID
- continue lidocaine patches
Ambulatory Dysfunction with Frequent Fall
- consult PT/OT - SNF recommended
Diabetes Mellitus, Type II
- Monitor sugars and continue coverage insulin
Acquired Autoimmune Hemolytic Anemia
- completed steroid course
- Hg stable
- OP f/u Dr. Bustillos
Alzheimer's Dementia
- Monitor for mood/behavior changes during hospitalization
DVT proph: SCDs
Code Status: Full Code
Anticipated Discharge: 24 - 48 hours
Subjective/Interval History
-
Date of Service: April 13, 2025
resting comfortably, no complaints at present
Objective Data
-
Labs:
Laboratory Results
04/13/25
08:27
WBC 11.0 H
Hgb 11.7 L
Hct 34.6 L
Plt Count 272
Sodium Pending
Potassium Pending
Chloride Pending
Carbon Dioxide Pending
BUN Pending
Creatinine Pending
Glucose Pending
Calcium Pending
Vital Signs:
Vital Signs
Temp Pulse Resp BP Pulse Ox
98.5 F 97 16 171/94 100
04/13/25 08:52 04/13/25 09:10 04/13/25 08:52 04/13/25 09:10 04/13/25 08:52
I&O
04/12/25 04/13/25 04/14/25
06:59 06:59 06:59
Intake Total 1560 / 1560
Output Total 600 / 600 300 / 300
Balance -600 / -600 1260 / 1260
Physical Exam
-
General: No Apparent Distress
HEENT: Normocephalic and Atraumatic
Respiratory: Negative Wheezes
Cardiac: Regular Rhythm
GI: Soft
Musculoskeletal: No Edema
Neuro: AO x 3
Psych: Calm
Data Reviewed
-
Total Time Spent with Patient (in minutes): 44
Labs: Labs Reviewed by me
[2025-04-13 09:52] LABS: Blood Urea Nitrogen 20 mg/dl (7-17); Calcium 9.1 mg/dl (8.4-10.2); Carbon Dioxide 28 mmol/L (22-30); Chloride 103 mmol/L (98-107); Estimated Creatinine Clearance 46 ml/min; Glucose 188 mg/dl (70-99); Magnesium 2.0 mg/dl (1.6-2.3); Potassium 3.5 mmol/L (3.5-5.1); Sodium 139 mmol/L (135-145); eGFR > 60.00
[2025-04-13] MEDS: LASIX 20 MG PO (10:35)
[2025-04-13 10:54] LABS: Folate > 20.0 ng/ml (2.76-20); Vitamin B12 722 pg/ml (239-931)
[2025-04-13 12:19] LABS: Glucose - Point of Care 294 mg/dl (70-99)
[2025-04-13] MEDS: NOVOLOG FLEXPEN-LOW RESISTANCE 3 UNITS SC ×2 (12:52→16:54)
[2025-04-13 14:10] LABS: Glucose - Point of Care 274 mg/dl (70-99)
--- NOTE | 2025-04-13 14:30 | FALL ---
Description of Fall:
pt found in the bathroom floor by RN. Pt instructed to pull the cord for assistance while RN outside the bathroom door awaiting pt to call for help/call coon. RN heard the noise, opened the door, pt found on the floor.
Injuries Noted:
pt with L arm skin tear.
Action Taken:
pt lifted to the chair, Vss, checked for any injuries, assess for pain, orientation.
Name of Provider Notified: Dr. Christianson
[2025-04-13] MEDS: GLUCOPHAGE 1000 MG PO (16:01)
--- NOTE | 2025-04-13 16:17 | PN.CDI ---
CDI
- -
CDI:
Physician Documentation Request
Admit Date: 04/12/25 11:51
Dear Doctor Sammy,
Please review the following and provide your response in the progress notes.
Clinical Indicators:
Height: 5 ft
Weight: 93 lbs 04/12
BMI:18.2
RD notes 'BMI 18.0 underweight range,'
Please provide an associated diagnosis related to the abnormal BMI:
BMI < or = to 19
Underweight
Weight Loss
Cachectic
Anorexia
- BMI is not significant
- Other
Use of terms such as suspected, likely, concern for, or probable (associated with a specific diagnosis that is being evaluated, monitored, or treated as if it exists) are acceptable and can be coded in the inpatient setting, when documented at the
time of discharge.
Thank you,
Tahira Em RN BSN
CDI Specialist
tiger text
Please use your independent medical judgment in providing your response.
[2025-04-13 16:48] LABS: Glucose - Point of Care 271 mg/dl (70-99)
[2025-04-13] MEDS: ROXICODONE 5 MG PO (18:35)
[2025-04-13 19:19] LABS: Urine Character Clear (Clear)
[2025-04-13] MEDS: PAMELOR 20 MG PO (20:54)
[2025-04-13] MEDS: LIPITOR 40 MG PO (20:55)
[2025-04-13] MEDS: REMOVE LIDOCAINE PATCH 2 PATCH REMOVE (20:55)
[2025-04-13] MEDS: ARICEPT 5 MG PO (20:55)
[2025-04-13] MEDS: XALATAN OPHTHALMIC SOLUTION 1 DROP OPHTH (20:55)
[2025-04-13 21:16] LABS: Glucose - Point of Care 165 mg/dl (70-99)
--- NOTE | 2025-04-13 21:25 | PTCARENOTE ---
pt hr up to 140s while laying in bed. pt asymptomatic. FOOD AND BEVERAGE ATTENDANT notified, no new orders at this time.
[2025-04-14] VITALS (7 sets, daily range): BP systolic 138–165; BP diastolic 63–101; BMI 17.6
[2025-04-14] MEDS: ROXICODONE 5 MG PO ×2 (05:43→11:12)
[2025-04-14 07:54] LABS: Hematocrit 30.6 % (37.0-47.0); Hemoglobin 10.1 g/dL (12.0-16.0); Mean Corp Hgb Conc. 33.0 g/dL (33.0-37.0); Mean Corpuscular Volume 95.9 fL (81.0-99.0); Platelet Count 235 10^3/uL (130-400); Red Cell Dist. Width 15.9 % (11.5-14.5)
[2025-04-14 07:57] LABS: Glucose - Point of Care 186 mg/dl (70-99)
[2025-04-14 08:23] LABS: Blood Urea Nitrogen 23 mg/dl (7-17); Calcium 9.0 mg/dl (8.4-10.2); Carbon Dioxide 28 mmol/L (22-30); Chloride 105 mmol/L (98-107); Estimated Creatinine Clearance 38 ml/min; Glucose 152 mg/dl (70-99); Potassium 3.6 mmol/L (3.5-5.1); Sodium 140 mmol/L (135-145); eGFR > 60.00
[2025-04-14] MEDS: TOPROL XL 25 MG PO (08:24)
[2025-04-14] MEDS: ASPIR LOW (ENTERIC COATED) 81 MG PO (08:24)
[2025-04-14] MEDS: FARXIGA 10 MG PO (08:24)
[2025-04-14] MEDS: TYLENOL 1000 MG PO ×3 (08:24→21:53)
[2025-04-14] MEDS: GLUCOPHAGE 1000 MG PO ×2 (08:24→16:53)
[2025-04-14] MEDS: ZESTRIL 5 MG PO (08:24)
[2025-04-14] MEDS: ALDACTONE 25 MG PO (08:24)
[2025-04-14] MEDS: LASIX 20 MG PO (08:25)
[2025-04-14] MEDS: NOVOLOG FLEXPEN-LOW RESISTANCE 1 UNITS SC ×2 (08:25→16:53)
[2025-04-14] MEDS: TRUSOPT 2% OPHTHALMIC SOLUTION 1 DROP OPHTH ×2 (08:25→19:39)
[2025-04-14] MEDS: LIDOCAINE 4% PATCH 2 PATCH TOPICAL (08:25)
--- NOTE | 2025-04-14 08:50 | PTCARENOTE ---
Dr. Christianson made aware pt. had very difficult time taking pills with water this morning. Pt. was pocketing and chewing pills. This nurse crushed and administered medication in apple sauce and pt. was successful in swallowing pills. Pt. unable to tell
nurse if this is new or not. Dr. Christianson to order speech therapy consult.
[2025-04-14 11:46] LABS: Glucose - Point of Care 149 mg/dl (70-99)
[2025-04-14] MEDS: NOVOLOG FLEXPEN-LOW RESISTANCE SC (11:48)
--- NOTE | 2025-04-14 13:37 | PTOTSP ---
Speech therapy
Presentation: Patient's speech and language appeared to be WNL during conversation. Patient was overtly confused and easily distracted. Per patient's daughter, this is patient's baseline (senile dementia dx).
Swallowing Function: Patient was observed with several bites of soup, regular consistency solids and sips of thin liquids (straw) in which patient appeared to tolerate as she did not exhibit any overt clinical s/sx of aspiration or manipulation.
Patient denied dysphagia complaints.
Per daughter, patient has a hx of difficulty with medications whole but typically takes them whole with thin liquids. CLOTH FINISHING RANGE BACK TENDER reviewed recommendations of medications in puree.
Recommendations:
1) Continuation of regular consistency solids and thin liquids
2) Assistance and supervision with PO
3) Medications as tolerated
4) Aspiration precautions
5) Consideration of further cognitive evaluation
Plan: CLOTH FINISHING RANGE BACK TENDER will continue to follow; pending hospitalization.
--- NOTE | 2025-04-14 13:39 | W.PN.HOSP.TC ---
Today's Communication/Plan
-
continue Lasix/Cardiac meds
continue PT/OT and pain meds
Medically stable for dispo to SNF. Pending bed. CM aware.
Assessment / Plan
Assessment / Plan
Assessment:
Acute hypoxic respiratory insufficiency on 2L
Suspected acute CHF (unknown type) in setting of unknown valvular HD
- obtain records from [facility] and director of rehabilitation and wellness outpatient
- CXR: Findings suggest congestive heart failure/pulmonary edema. Soft tissue density in the right hilum could be fluid however adenopathy or mass is difficult to exclude. Follow-up with chest x-ray following treatment, or CT of the chest would be
recommended
- CT: Small to moderate bilateral pleural effusions, right slightly greater than left with accompanying bilateral lower lobe opacification compatible with subsegmental atelectasis and/for pneumonia.
- Echo: EF 30-35%, dilated LA, aortic sclerosis, severe MS, moderate TR
- s/p IV Lasix; now on oral Lasix
- GDMT: Toprol XL/BIBIANA/Farxiga/Aldactone. Monitor BPs
- OP Cardiology follow up. Dr. Taylor
- O2 weaned off.
Sacral Fracture, traumatic from mechanical fall (no syncope)
- continue Tylenol 1g TID
- continue lidocaine patches
Traumatic fall - in hospital
- pelvic X-rays: Acute minimally displaced fracture of left superior ramus. Nondisplaced acute fracture of left inferior pubic ramus.
- WBAT at tolerated
- pain control
Ambulatory Dysfunction with Frequent Fall
- consult PT/OT - SNF recommended
Diabetes Mellitus, Type II
- Monitor sugars and continue coverage insulin
Acquired Autoimmune Hemolytic Anemia
- completed steroid course
- Hg stable
- OP f/u Dr. Bustillos
Alzheimer's Dementia
- Monitor for mood/behavior changes during hospitalization
Underweight status
DVT proph: SCDs
Code Status: Full Code
Dispo: Medically stable for dispo to SNF. Pending bed. CM aware.
Anticipated Discharge: 24 - 48 hours
Subjective/Interval History
-
Date of Service: April 14, 2025
yesterdays event reviewed; Mechanical fall in bathroom. CT head negative. Pelvic Xrays with L sided pelvic fractures
Patient with pain with movement, none at rest. No other complaints
Objective Data
-
Labs:
Laboratory Results
04/14/25
06:24
WBC 10.0
Hgb 10.1 L
Hct 30.6 L
Plt Count 235
Sodium 140
Potassium 3.6
Chloride 105
Carbon Dioxide 28
BUN 23 H
Creatinine 0.7
Glucose 152 H
Calcium 9.0
Vital Signs:
Vital Signs
Temp Pulse Resp BP Pulse Ox
97.7 F 89 16 165/101 93
04/14/25 11:36 04/14/25 11:36 04/14/25 11:36 04/14/25 11:36 04/14/25 11:36
I&O
04/13/25 04/14/25 04/15/25
06:59 06:59 06:59
Intake Total 1560 / 1560 720 / 720
Output Total 300 / 300 300 / 300
Balance 1260 / 1260 420 / 420
Physical Exam
-
General: No Apparent Distress
HEENT: Normocephalic and Atraumatic
Respiratory: Negative Wheezes
Cardiac: Regular Rhythm and S1/S2
GI: Soft and Nontender
Neuro: AO x 3
Psych: Calm
Data Reviewed
-
Total Time Spent with Patient (in minutes): 41
Labs: Labs Reviewed by me
--- NOTE | 2025-04-14 14:06 | CM ---
Case discussed with Dr. Christianson; pt sustained a fall yesterday and is likely more appropriate for SNF at this time.
SNF referrals sent to [facility]. [facility] ([facility] often refers to [facility]), [facility], [facility], [facility], [facility], and [facility].
Plan: CM to follow up with SNFs tomorrow to determine bed availability and options for discharge tomorrow.
[2025-04-14 16:29] LABS: Glucose - Point of Care 180 mg/dl (70-99)
[2025-04-14] MEDS: REMOVE LIDOCAINE PATCH 2 PATCH REMOVE (19:38)
[2025-04-14 21:18] LABS: Glucose - Point of Care 141 mg/dl (70-99)
[2025-04-14] MEDS: LIPITOR 40 MG PO (21:53)
[2025-04-14] MEDS: ARICEPT 5 MG PO (21:53)
[2025-04-14] MEDS: PAMELOR 20 MG PO (21:53)
[2025-04-14] MEDS: XALATAN OPHTHALMIC SOLUTION 1 DROP OPHTH (22:01)
[2025-04-15 03:00] VITALS: BP 151/77
[2025-04-15 06:00] VITALS: BMI 17.5
[2025-04-15] MEDS: ROXICODONE 5 MG PO ×2 (07:45→15:51)
[2025-04-15] MEDS: LIDOCAINE 4% PATCH 2 PATCH TOPICAL (07:45)
[2025-04-15] MEDS: ASPIR LOW (ENTERIC COATED) 81 MG PO (07:45)
[2025-04-15] MEDS: GLUCOPHAGE 1000 MG PO ×2 (07:46→15:51)
[2025-04-15] MEDS: FARXIGA 10 MG PO (07:46)
[2025-04-15] MEDS: TYLENOL 1000 MG PO ×3 (07:46→21:43)
[2025-04-15] MEDS: TRUSOPT 2% OPHTHALMIC SOLUTION 1 DROP OPHTH ×2 (07:48→20:04)
[2025-04-15] MEDS: LASIX 20 MG PO (07:51)
[2025-04-15] MEDS: ZESTRIL 5 MG PO (07:51)
[2025-04-15] MEDS: TOPROL XL 25 MG PO (07:51)
[2025-04-15] MEDS: NOVOLOG FLEXPEN-LOW RESISTANCE SC ×2 (07:53→11:55)
[2025-04-15 07:54] LABS: Glucose - Point of Care 144 mg/dl (70-99)
[2025-04-15 07:55] VITALS: BP 180/98
[2025-04-15 08:19] LABS: Hematocrit 30.7 % (37.0-47.0); Hemoglobin 10.2 g/dL (12.0-16.0); Mean Corp Hgb Conc. 33.2 g/dL (33.0-37.0); Mean Corpuscular Volume 94.5 fL (81.0-99.0); Platelet Count 243 10^3/uL (130-400); Red Cell Dist. Width 15.8 % (11.5-14.5)
[2025-04-15 08:20] LABS: Blood Urea Nitrogen 28 mg/dl (7-17); Calcium 8.9 mg/dl (8.4-10.2); Carbon Dioxide 27 mmol/L (22-30); Chloride 105 mmol/L (98-107); Estimated Creatinine Clearance 38 ml/min; Glucose 149 mg/dl (70-99); Potassium 3.9 mmol/L (3.5-5.1); Sodium 139 mmol/L (135-145); eGFR > 60.00
[2025-04-15] MEDS: ALDACTONE 25 MG PO (09:58)
[2025-04-15 11:34] VITALS: BP 140/76
[2025-04-15 11:52] LABS: Glucose - Point of Care 127 mg/dl (70-99)
--- NOTE | 2025-04-15 12:02 | W.PN.HOSP.TC ---
Today's Communication/Plan
-
Medically stable for dispo to SNF. Pending bed. CM aware.
Assessment / Plan
Assessment / Plan
Assessment:
Acute hypoxic respiratory insufficiency on 2L
Suspected acute CHF (unknown type) in setting of unknown valvular HD
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
- CXR: Findings suggest congestive heart failure/pulmonary edema. Soft tissue density in the right hilum could be fluid however adenopathy or mass is difficult to exclude. Follow-up with chest x-ray following treatment, or CT of the chest would be
recommended
- CT: Small to moderate bilateral pleural effusions, right slightly greater than left with accompanying bilateral lower lobe opacification compatible with subsegmental atelectasis and/for pneumonia.
- Echo: EF 30-35%, dilated LA, aortic sclerosis, severe MS, moderate TR
- s/p IV Lasix; now on oral Lasix
- GDMT: Toprol XL/BIBIANA/Farxiga/Aldactone. Monitor BPs
- OP Cardiology follow up. Dr. Taylor
- O2 weaned off.
Sacral Fracture, traumatic from mechanical fall (no syncope)
- continue Tylenol 1g TID
- continue lidocaine patches
Traumatic fall - in hospital
- pelvic X-rays: Acute minimally displaced fracture of left superior ramus. Nondisplaced acute fracture of left inferior pubic ramus.
- WBAT at tolerated
- pain control
Ambulatory Dysfunction with Frequent Fall
- consult PT/OT - SNF recommended
Diabetes Mellitus, Type II
- Monitor sugars and continue coverage insulin
Acquired Autoimmune Hemolytic Anemia
- completed steroid course
- Hg stable
- OP f/u Dr. Bustillos
Alzheimer's Dementia
- Monitor for mood/behavior changes during hospitalization
Underweight status
DVT proph: SCDs
Code Status: Full Code
Dispo: Medically stable for dispo to SNF. Pending bed. CM aware.
Anticipated Discharge: Within 24 hours
Subjective/Interval History
-
Date of Service: April 15, 2025
resting comfortably, no complaints at present
Objective Data
-
Labs:
Laboratory Results
04/15/25
06:52
WBC 10.1
Hgb 10.2 L
Hct 30.7 L
Plt Count 243
Sodium 139
Potassium 3.9
Chloride 105
Carbon Dioxide 27
BUN 28 H
Creatinine 0.7
Glucose 149 H
Calcium 8.9
Vital Signs:
Vital Signs
Temp Pulse Resp BP Pulse Ox
97.7 F 93 20 140/76 93
04/15/25 11:34 04/15/25 11:34 04/15/25 11:34 04/15/25 11:34 04/15/25 11:34
I&O
04/14/25 04/15/25 04/16/25
06:59 06:59 06:59
Intake Total 720 / 720 820 / 820
Output Total 300 / 300
Balance 420 / 420 820 / 820
Physical Exam
-
General: No Apparent Distress
HEENT: Normocephalic and Atraumatic
Respiratory: Negative Wheezes
Cardiac: Regular Rhythm and S1/S2
GI: Soft
Neuro: AO x 3
Psych: Calm and Apparent Dementia
Data Reviewed
-
Total Time Spent with Patient (in minutes): 41
Labs: Labs Reviewed by me
[2025-04-15 12:20] VITALS: BP 168/82; PULSE 104
[2025-04-15 15:55] VITALS: BP 129/64
[2025-04-15 17:28] LABS: Glucose - Point of Care 162 mg/dl (70-99)
[2025-04-15] MEDS: NOVOLOG FLEXPEN-LOW RESISTANCE 1 UNITS SC (17:29)
[2025-04-15] MEDS: REMOVE LIDOCAINE PATCH 2 PATCH REMOVE (20:04)
[2025-04-15 21:22] LABS: Glucose - Point of Care 142 mg/dl (70-99)
[2025-04-15] MEDS: ARICEPT 5 MG PO (21:44)
[2025-04-15] MEDS: PAMELOR 20 MG PO (21:44)
[2025-04-15] MEDS: XALATAN OPHTHALMIC SOLUTION 1 DROP OPHTH (21:44)
[2025-04-15] MEDS: LIPITOR 40 MG PO (21:44)
[2025-04-15 23:23] VITALS: BP 142/63
[2025-04-16 06:00] VITALS: BMI 17.0
[2025-04-16 07:45] VITALS: BP 150/71
[2025-04-16 08:06] LABS: Glucose - Point of Care 111 mg/dl (70-99)
[2025-04-16] MEDS: NOVOLOG FLEXPEN-LOW RESISTANCE SC (08:07)
[2025-04-16] MEDS: TRUSOPT 2% OPHTHALMIC SOLUTION 1 DROP OPHTH ×2 (08:36→20:15)
[2025-04-16] MEDS: LIDOCAINE 4% PATCH 2 PATCH TOPICAL (08:37)
[2025-04-16] MEDS: GLUCOPHAGE 1000 MG PO ×2 (08:38→16:06)
[2025-04-16] MEDS: ASPIR LOW (ENTERIC COATED) 81 MG PO (08:38)
[2025-04-16] MEDS: FARXIGA 10 MG PO (08:38)
[2025-04-16] MEDS: TYLENOL 1000 MG PO ×3 (08:38→21:53)
[2025-04-16] MEDS: ZESTRIL 5 MG PO (08:41)
[2025-04-16] MEDS: TOPROL XL 25 MG PO (08:41)
[2025-04-16] MEDS: LASIX 20 MG PO (08:41)
[2025-04-16] MEDS: ALDACTONE 25 MG PO (08:41)
[2025-04-16 09:18] LABS: Hematocrit 31.4 % (37.0-47.0); Hemoglobin 10.6 g/dL (12.0-16.0); Mean Corp Hgb Conc. 33.8 g/dL (33.0-37.0); Mean Corpuscular Volume 93.5 fL (81.0-99.0); Platelet Count 244 10^3/uL (130-400); Red Cell Dist. Width 15.9 % (11.5-14.5)
[2025-04-16 09:30] VITALS: BMI 17.0
[2025-04-16 10:21] LABS: Blood Urea Nitrogen 32 mg/dl (7-17); Calcium 9.0 mg/dl (8.4-10.2); Carbon Dioxide 25 mmol/L (22-30); Chloride 104 mmol/L (98-107); Estimated Creatinine Clearance 37 ml/min; Glucose 120 mg/dl (70-99); Potassium 4.4 mmol/L (3.5-5.1); Sodium 137 mmol/L (135-145); eGFR > 60.00
[2025-04-16 11:00] VITALS: BP 127/75; O2SAT 97
[2025-04-16 11:26] LABS: Reticulocyte Count 2.5 % (0.4-2.8)
[2025-04-16 11:30] LABS: LDH 251 U/L (120-246); Uric Acid 5.4 mg/dl (2.5-6.2)
[2025-04-16 11:36] VITALS: BP 129/72; PULSE 82; O2SAT 98
[2025-04-16 12:17] LABS: Glucose - Point of Care 173 mg/dl (70-99)
[2025-04-16] MEDS: NOVOLOG FLEXPEN-LOW RESISTANCE 1 UNITS SC (12:25)
--- NOTE | 2025-04-16 13:09 | W.PN.HOSP.TC ---
Today's Communication/Plan
-
PT/OT and STR - CM aware
Assessment / Plan
Assessment / Plan
84yo F with PMHX of AIHA, HLD, demetia, DM, glaucoma brought after sustaining fall without LOC, found sacral Fx and HFrEF exacerbation. Respiratory-andrade improvd. No concern for UA or pulmonary infection. CT chest with prominent R hilar soft tissue,
mass unlikely, recommended outpatient CT chest with contrast in 4-6 weeks. Patient sustained one more fall in hospital, found Acute minimally displaced fracture of left superior ramus
A/P:
#Acute respiratory insuficiency 2/2 acute HFrEF
LAsix, daily weight, follow electrolytes
Cardio eval: GMDT therapy advised: Toprol XL/BIBIANA/Farxiga/Aldactone
Echo: EF 30-35%, dilated LA, aortic sclerosis, severe MS, moderate TR
#DM type 2 with unspecified comliacations
Insulin SS low resistance
DM diet
Might need outpatient Insulin to be stopped with Farxiga
with morning hypoglycemia - stopped insulin SS before dinner
#Acute minimally displaced fracture of left superior ramus
#Nondisplaced, transverse fracture through the sacrum at the S3-S4 level
PT/OT: patient doing well, can ambulate
pain mgmt
#Chronic benign 2mm RUL nodule
stable since 2014
#Dementia, unspecified
#Glaucoma
#HLD
#AIHA
cont home meds
added outpatient labs for patient as per oncology rquest. Message sent to .
DVT ppx hep
Full code
I have spent at least 58min reviewing chart, test results, communication with family and providing direct patient care
Anticipated Discharge: 24 - 48 hours
Subjective/Interval History
-
Date of Service: April 16, 2025
Objective Data
-
Labs:
Laboratory Results
04/16/25
08:42
WBC 8.5
Hgb 10.6 L
Hct 31.4 L
Plt Count 244
Sodium 137
Potassium 4.4
Chloride 104
Carbon Dioxide 25
BUN 32 H
Creatinine 0.7
Glucose 120 H
Calcium 9.0
Vital Signs:
Vital Signs
Temp Pulse Resp BP Pulse Ox
97.3 F 97 16 169/83 95
04/16/25 07:45 04/16/25 08:41 04/16/25 07:45 04/16/25 08:41 04/16/25 08:45
I&O
04/15/25 04/16/25 04/17/25
06:59 06:59 06:59
Intake Total 820 / 820 480 / 480
Balance 820 / 820 480 / 480
Review of Systems
-
Unable to obtain full review of systems at this time due to: Dementia
History Source: Patient
All other systems: Reviewed and negative
Physical Exam
-
General: No Apparent Distress
HEENT: Normocephalic
Respiratory: Clear to Auscultation
Cardiac: Regular Rhythm
Neuro: Awake and Alert
Psych: Calm and Apparent Dementia
[2025-04-16 15:25] VITALS: BP 127/66
--- NOTE | 2025-04-16 16:08 | CM ---
Addendum entered by LEXUS Palmer 04/16/25 16:25:
Patient's family: Fauzia [phone] Rachell [phone] and Griffin [phone].
Original Note:
Spoke with Jing from [facility] who confirmed ability to accept patient. [facility], Facilities that can accept: [facility], [facility], [facility] and [facility]. Met with patient and her daughter who was at
bedside. She stated that those facilities would be too far for her spouse to drive from [place] and would rather patient stay in the [facility]. She selected, [facility], [facility] and [facility]. Will make referrals
and follow up with patient's daughter.
Plan: Case management will continue to follow and assist with discharge planning. SNF.
[2025-04-16 17:06] LABS: Glucose - Point of Care 109 mg/dl (70-99)
[2025-04-16] MEDS: REMOVE LIDOCAINE PATCH 2 PATCH REMOVE (20:15)
[2025-04-16] MEDS: ARICEPT 5 MG PO (20:15)
[2025-04-16] MEDS: HEPARIN 5000 UNITS SC (20:15)
[2025-04-16] MEDS: LIPITOR 40 MG PO (20:15)
[2025-04-16] MEDS: PAMELOR 20 MG PO (20:16)
[2025-04-16 21:27] LABS: Glucose - Point of Care 162 mg/dl (70-99)
[2025-04-16] MEDS: XALATAN OPHTHALMIC SOLUTION 1 DROP OPHTH (21:52)
[2025-04-16 23:42] VITALS: BP 128/67
[2025-04-17] VITALS (7 sets, daily range): BP systolic 122–157; BP diastolic 55–78; PULSE 96; BMI 16.9
[2025-04-17 07:12] LABS: Glucose - Point of Care 144 mg/dl (70-99)
[2025-04-17] MEDS: NOVOLOG FLEXPEN-LOW RESISTANCE SC (07:18)
[2025-04-17] MEDS: TRUSOPT 2% OPHTHALMIC SOLUTION 1 DROP OPHTH ×2 (08:03→19:56)
[2025-04-17] MEDS: FARXIGA 10 MG PO (08:03)
[2025-04-17] MEDS: TYLENOL 1000 MG PO ×3 (08:03→21:30)
[2025-04-17] MEDS: PROTONIX 40 MG PO (08:03)
[2025-04-17] MEDS: ASPIR LOW (ENTERIC COATED) 81 MG PO (08:04)
[2025-04-17] MEDS: GLUCOPHAGE 1000 MG PO ×2 (08:04→16:41)
[2025-04-17] MEDS: DELTASONE 5 MG PO (08:05)
[2025-04-17] MEDS: HEPARIN 5000 UNITS SC ×2 (08:05→19:55)
[2025-04-17] MEDS: LIDOCAINE 4% PATCH 2 PATCH TOPICAL (08:05)
[2025-04-17] MEDS: LASIX 20 MG PO (08:06)
[2025-04-17] MEDS: ALDACTONE 25 MG PO (08:06)
[2025-04-17] MEDS: ZESTRIL 5 MG PO (08:06)
[2025-04-17] MEDS: TOPROL XL 25 MG PO (08:06)
--- NOTE | 2025-04-17 10:29 | W.PN.HOSP.TC ---
Today's Communication/Plan
-
medcially stable for D/C. CM notified
Assessment / Plan
Assessment / Plan
84yo F with PMHX of AIHA, HLD, demetia, DM, glaucoma brought after sustaining fall without LOC, found sacral Fx and HFrEF exacerbation. Respiratory-andrade improvd. No concern for UA or pulmonary infection. CT chest with prominent R hilar soft tissue,
mass unlikely, recommended outpatient CT chest with contrast in 4-6 weeks. Patient sustained one more fall in hospital, found Acute minimally displaced fracture of left superior ramus. CHF resolved, continued on GDMT. with additiona of Farxiga -
questionable need in outpatient insulin. Will defer to outpatient. TID AC blood glucose and continuous blood glucose monitor to cont
A/P:
#Acute respiratory insuficiency 2/2 acute HFrEF
LAsix, daily weight, follow electrolytes
Cardio eval: GMDT therapy advised: Toprol XL/BIBIANA/Farxiga/Aldactone
Echo: EF 30-35%, dilated LA, aortic sclerosis, severe MS, moderate TR
#DM type 2 with unspecified comliacations
Insulin SS low resistance
DM diet
Might need outpatient Insulin to be stopped with Farxiga
with morning hypoglycemia - stopped insulin SS before dinner
#Acute minimally displaced fracture of left superior ramus
#Nondisplaced, transverse fracture through the sacrum at the S3-S4 level
PT/OT: patient doing well, can ambulate
pain mgmt
#Chronic benign 2mm RUL nodule
stable since 2014
#Dementia, unspecified
#Glaucoma
#HLD
#AIHA
cont home meds
added outpatient labs for patient as per oncology request. Message sent to .
DVT ppx hep
Full code
I have spent at least 36min reviewing chart, test results, communication with family and providing direct patient care
Anticipated Discharge: Within 24 hours
Subjective/Interval History
-
Date of Service: April 17, 2025
Objective Data
-
Vital Signs:
Vital Signs
Temp Pulse Resp BP Pulse Ox
97.4 F 92 18 163/79 100
04/17/25 07:25 04/17/25 08:06 04/17/25 07:25 04/17/25 08:06 04/17/25 08:30
I&O
04/16/25 04/17/25 04/18/25
06:59 06:59 06:59
Intake Total 480 / 480 420 / 420
Balance 480 / 480 420 / 420
Review of Systems
-
Unable to obtain full review of systems at this time due to: Dementia
History Source: Patient
All other systems: Reviewed and negative
Physical Exam
-
General: No Apparent Distress
HEENT: Normocephalic
Respiratory: Clear to Auscultation
GI: Soft, Nontender and Nondistended
Neuro: Awake, Alert, Oriented and AO x 3
Psych: Calm
[2025-04-17 11:44] LABS: Glucose - Point of Care 217 mg/dl (70-99)
[2025-04-17] MEDS: NOVOLOG FLEXPEN-LOW RESISTANCE 2 UNITS SC (11:45)
--- NOTE | 2025-04-17 15:41 | CM ---
Spoke with admissions at [facility] and [facility], however there are no beds at facilities. Spoke with patient's daughter, Fauzia, who stated that she would also be interested in [facility] SNF. Placed referral. Spoke with Guillermina in admissions
at [facility] who stated that she would be able to accept patient today, # for report [phone] and fax# [phone]. Spoke with patient's daughter who was agreeable to transfer today, she will transport. TT attending who stated that he will d/c
in the am. Admissions at [facility], patient's daughter FauziaALBERTO and 4e community planning technician updated. Patient's daughter requested that if at all possible, patient could leave tonight. RN texted x coverage however she would need permission from attending. As
this is the case, will assist with facilitating d/c in the am.
Plan: Case management will continue to follow and assist with discharge planning. [facility] transfer tomorrow morning.
[2025-04-17 16:41] LABS: Glucose - Point of Care 184 mg/dl (70-99)
[2025-04-17] MEDS: PAMELOR 20 MG PO (19:56)
[2025-04-17] MEDS: REMOVE LIDOCAINE PATCH 2 PATCH REMOVE (19:56)
[2025-04-17] MEDS: LIPITOR 40 MG PO (19:56)
[2025-04-17] MEDS: ARICEPT 5 MG PO (19:56)
[2025-04-17 21:22] LABS: Glucose - Point of Care 147 mg/dl (70-99)
[2025-04-17] MEDS: XALATAN OPHTHALMIC SOLUTION 1 DROP OPHTH (21:30)
--- NOTE | 2025-04-18 03:02 | DOWNTIME ---
There was a [employer] Downtime on 04/18/2025 from 0100 to 04/18/2025 at 0235. Downtime documentation of patient's care, including medication administrations, has been reconciled in the electronic record per guidelines. Refer to the
patient's paper chart under the miscellaneous tab to see printed paper medication records and downtime forms.
[2025-04-18 06:00] VITALS: BMI 16.8
[2025-04-18 07:00] VITALS: BP 147/67
[2025-04-18 07:10] LABS: Glucose - Point of Care 154 mg/dl (70-99)
[2025-04-18] MEDS: LIDOCAINE 4% PATCH 2 PATCH TOPICAL (09:20)
[2025-04-18] MEDS: NOVOLOG FLEXPEN-LOW RESISTANCE 1 UNITS SC (09:21)
[2025-04-18] MEDS: TYLENOL 1000 MG PO (09:22)
[2025-04-18] MEDS: ASPIR LOW (ENTERIC COATED) 81 MG PO (09:22)
[2025-04-18] MEDS: TOPROL XL 25 MG PO (09:23)
[2025-04-18] MEDS: FARXIGA 10 MG PO (09:23)
[2025-04-18] MEDS: TRUSOPT 2% OPHTHALMIC SOLUTION 1 DROP OPHTH (09:23)
[2025-04-18] MEDS: PROTONIX 40 MG PO (09:24)
[2025-04-18] MEDS: ZESTRIL 5 MG PO (09:24)
[2025-04-18] MEDS: DELTASONE 5 MG PO (09:24)
[2025-04-18] MEDS: GLUCOPHAGE 1000 MG PO (09:24)
[2025-04-18] MEDS: HEPARIN 5000 UNITS SC (09:25)
[2025-04-18] MEDS: LASIX 20 MG PO (09:25)
[2025-04-18] MEDS: ALDACTONE 25 MG PO (09:25)
--- NOTE | 2025-04-18 09:44 | CM ---
Placed a call to [facility] SNF and spoke with Guillermina in admissions who confirmed bed availability for today. She will be in RM #[id number]. # For fax and report are in previous CM note.
TT Attending who confirmed that patient is still ok for discharge today and will work on documentation.
Received a voice mail from patient's daughter, Fauzia, who stated that she is delaying her trip back home to [place] for a day and therefore will be able to transport patient herself.
Returned call to Fauzia however had to leave a voice mail message. Encouraged return call to confirm time that she can be in transport patient. Provided CM office # and cell #.
Plan: Case management will continue to follow and assist with discharge planning. [facility] transfer upon discharge and her daughter coming in to transport her.
--- NOTE | 2025-04-18 10:00 | W.PN.HOSP.TC ---
Today's Communication/Plan
-
dc
Assessment / Plan
Assessment / Plan
84yo F with PMHX of AIHA, HLD, demetia, DM, glaucoma brought after sustaining fall without LOC, found sacral Fx and HFrEF exacerbation. Respiratory-andrade improvd. No concern for UA or pulmonary infection. CT chest with prominent R hilar soft tissue,
mass unlikely, recommended outpatient CT chest with contrast in 4-6 weeks. Patient sustained one more fall in hospital, found Acute minimally displaced fracture of left superior ramus. CHF resolved, continued on GDMT. with addition of Farxiga -
questionable need in outpatient insulin. Will defer to outpatient. TID AC blood glucose and continuous blood glucose monitor to cont. Medcially stable for d/c to [facility]
A/P:
#Acute respiratory insufficiency 2/2 acute HFrEF
LAsix, daily weight, follow electrolytes
Cardio eval: GMDT therapy advised: Toprol XL/BIBIANA/Farxiga/Aldactone
Echo: EF 30-35%, dilated LA, aortic sclerosis, severe MS, moderate TR
#DM type 2 with unspecified comliacations
Insulin SS low resistance
DM diet
Might need outpatient Insulin to be stopped with Farxiga
with morning hypoglycemia - stopped insulin SS before dinner
#Acute minimally displaced fracture of left superior ramus
#Nondisplaced, transverse fracture through the sacrum at the S3-S4 level
PT/OT: patient doing well, can ambulate
pain mgmt
#Chronic benign 2mm RUL nodule
stable since 2014
#Dementia, unspecified
#Glaucoma
#HLD
#AIHA
cont home meds
added outpatient labs for patient as per oncology request. Message sent to .
DVT ppx hep
Full code
I have spent at least 36min reviewing chart, test results, communication with family and providing direct patient care
Anticipated Discharge: Today
Subjective/Interval History
-
Date of Service: April 18, 2025
Objective Data
-
Vital Signs:
Vital Signs
Temp Pulse Resp BP Pulse Ox
97.6 F 97 12 159/79 97
04/18/25 07:00 04/18/25 09:23 04/18/25 07:00 04/18/25 09:23 04/18/25 07:00
I&O
04/17/25 04/18/25 04/19/25
06:59 06:59 06:59
Intake Total 420 / 420 720 / 720
Balance 420 / 420 720 / 720
Review of Systems
-
History Source: Patient
All other systems: Reviewed and negative
Physical Exam
-
General: Comfortable
Neuro: Awake and Alert
Psych: Calm and Apparent Dementia
--- NOTE | 2025-04-18 10:06 | W.DCSUMMARY ---
Addendum entered and electronically signed by Lucas Olguin MD 04/18/25 12:28:
Called to [facility] and updated that Lasix 20mg should be daily, not q48H
Addendum entered and electronically signed by Lucas Olguin MD 04/18/25 10:28:
Insulin to be started after blood glucose reach 300 with 1 unit per 50 blood glucose increments to avoid hypoglycemia
Original Note:
Discharge Summary
Discharge Data
Date of Admission: 04/12/25
Date of Discharge: 04/18/25
-
Pending Results: No
Hospital Course
84yo F with PMHX of AIHA, HLD, dementia, DM, glaucoma brought after sustaining fall without LOC, found sacral Fx and HFrEF exacerbation. Respiratory-andrade improvd. No concern for UA or pulmonary infection. CT chest with prominent R hilar soft tissue,
mass unlikely, recommended outpatient CT chest with contrast in 4-6 weeks. Patient sustained one more fall in hospital, found Acute minimally displaced fracture of left superior ramus. CHF resolved, continued on GDMT. with addition of Farxiga -
questionable need in outpatient insulin. Will defer to outpatient. TID AC blood glucose and continuous blood glucose monitor to cont. Medcially stable for d/c to [facility]
I have spent at least 36min reviewing chart, test results, communication with family and providing direct patient care
Patient was managed for:
#Acute respiratory insufficiency 2/2 acute HFrEF
#DM type 2 with unspecified comliacations
#Acute minimally displaced fracture of left superior ramus
#Nondisplaced, transverse fracture through the sacrum at the S3-S4 level
#Chronic benign 2mm RUL nodule
#Dementia, unspecified
#Glaucoma
#HLD
#AIHA
Discharge Plan
-
Patient Disposition: Detention/SNF
Diet: 2 Gram Sodium
Activity: As tolerated
Blood Work: BMP in 1 week
Referrals:
Von Taylor DO [Non-Admitting Privileges, Cardiology] - in one to two weeks
Jenifer Raza MD [Family Provider, [facility]]
Prescriptions:
New
spironolactone 25 mg Tablet
25 mg PO DAILY Qty: 30 0RF
lisinopril 5 mg Tablet
5 mg PO DAILY Qty: 30 0RF
metoprolol succinate 25 mg Tablet Extended Release 24 Hr
25 mg PO DAILY Qty: 30 0RF
dapagliflozin propanediol 10 mg Tablet
10 mg PO DAILY Qty: 30 0RF
Continued
atorvastatin 40 mg Tablet
40 mg PO HS
cyanocobalamin (vitamin B-12) 1,000 mcg Tablet
1,000 mcg PO Q OTHER DAY
aspirin 81 mg Tablet,Delayed Release (Dr/Ec)
81 mg PO DAILY
nortriptyline 10 mg Capsule
20 mg PO HS
furosemide [Lasix] 20 mg Tablet
20 mg PO Q OTHER DAY
Rx Instructions:
20 mg orally
cholecalciferol (vitamin D3) [Vitamin D3] 25 mcg (1,000 unit) Tablet
25 mcg PO DAILY
metformin 500 mg Tablet
1,000 mg PO BID@0800,1700 Qty: 120 0RF
(DME) Contour Next Test Strips Strip
Qty: 200 0RF
Rx Instructions:
As Directed
(DME) lancets [Color Lancets] 21 gauge Misc
Qty: 200 0RF
Rx Instructions:
As Directed
(DME) pen needle, diabetic [Ultra-Fine Pen Needle] 29 gauge x 1/2' needle
See Rx Instructions .Route Qty: 100 0RF
Rx Instructions:
As directed
latanoprost 0.005 % Drops
1 drp OPHTHALMIC (EYE) DAILY
prochlorperazine maleate 10 mg Tablet
10 mg PO Q6H PRN (Reason: nausea)
ondansetron 8 mg Tablet,Disintegrating
8 mg PO Q8H PRN (Reason: nausea)
folic acid 1 mg Tablet
1 mg PO DAILY
insulin lispro [Humalog U-100 Insulin] 100 unit/mL Solution
1 sliding scale dose SC DIRECTED
dorzolamide 2 % Drops
1 drp OPHTHALMIC (EYE) BID
Rx Instructions:
both eyes
prednisone 10 mg tablet
5 mg PO DAILY
donepezil 5 mg Tablet
5 mg PO HS
Triad Wound Dressing Paste
1 applic TOPICAL DAILY
acetaminophen 500 mg Tablet
1,000 mg PO Q4H
nystatin 100,000 unit/gram Cream
1 applic TOPICAL BID
Discontinued
Januvia 100 mg Tablet
100 mg PO DAILY Qty: 30 0RF
calcitonin (salmon) 200 unit/actuation [place],Non-Aerosol
1 spray INTRANASAL (ALT) DAILY
Discharge Orders:
Discharge Patient (As Directed); Ordered 04/18/25
Ordered By: Lucas Olguin
Discharge Date and Time
Print Language: ESTONIAN
[2025-04-18 11:26] VITALS: BP 140/71
== END 2025-04-18 11:51 | DRG 291 ==
LOC: 4 EAST ACU 11:51
PROVIDERS: Internal Medicine; Physician Assistant Medical; ADMITTING PHYSICIAN Hospitalist; ATTENDING PHYSICIAN Internal Medicine; CONSULT PHYSICIAN Internal Medicine; EMERGENCY PHYSICIAN Student in an Organized Health Care Education/Training Program; FAMILY PHYSICIAN Family Medicine
DX: I11.0 Hypertensive heart disease with heart failure (principal); I50.23 Acute on chronic systolic (congestive) heart failure; S32.592A Other specified fracture of left pubis, initial encounter for closed fracture; S32.19XA Other fracture of sacrum, initial encounter for closed fracture; D59.10 Autoimmune hemolytic anemia, unspecified; Z68.1 Body mass index [BMI] 19.9 or less, adult; E11.9 Type 2 diabetes mellitus without complications; E78.00 Pure hypercholesterolemia, unspecified; F02.80 Dementia in other diseases classified elsewhere, unspecified severity, without behavioral disturbance, psychotic disturbance, mood disturbance, and anxiety; G30.9 Alzheimer's disease, unspecified; H40.9 Unspecified glaucoma; I05.0 Rheumatic mitral stenosis; I25.10 Atherosclerotic heart disease of native coronary artery without angina pectoris; R29.6 Repeated falls; R26.89 Other abnormalities of gait and mobility; R09.02 Hypoxemia; R06.89 Other abnormalities of breathing; R91.1 Solitary pulmonary nodule; R63.6 Underweight; W01.198A Fall on same level from slipping, tripping and stumbling with subsequent striking against other object, initial encounter; Z79.82 Long term (current) use of aspirin; Z79.84 Long term (current) use of oral hypoglycemic drugs; Z79.4 Long term (current) use of insulin; Z79.899 Other long term (current) drug therapy
CPT/HCPCS: 70450; 71046; 71250; 72125; 72192; 72202; 80048; 80053; 81003; 82607; 82746; 82962; 83036; 83615; 83735; 83880; 84443; 84484; 84550; 85025; 85027; 85045; 87070; 92610; 93005; 93306; 97116; 97163; 97164; 97167; 97530; 97535; 99285

== ENCOUNTER → 2025-04-20 10:52 | Outpatient (REF) | payer MEDICARE, OTHER, SELFPAY ==
[2025-04-20 11:27] LABS: Hematocrit 31.3 % (37.0-47.0); Hemoglobin 10.3 g/dL (12.0-16.0); Mean Corp Hgb Conc. 32.9 g/dL (33.0-37.0); Mean Corpuscular Volume 94.8 fL (81.0-99.0); Nucleated Red Blood Cells % 0 %; Platelet Count 316 10^3/uL (130-400); Red Cell Dist. Width 15.5 % (11.5-14.5)
[2025-04-20 11:43] LABS: Blood Urea Nitrogen 29 mg/dl (7-17); Calcium 9.8 mg/dl (8.4-10.2); Carbon Dioxide 28 mmol/L (22-30); Chloride 105 mmol/L (98-107); Glucose 139 mg/dl (70-99); Potassium 4.2 mmol/L (3.5-5.1); Sodium 140 mmol/L (135-145); eGFR > 60.00
== END ==
LOC: OLABP 10:52
PROVIDERS: ATTENDING PHYSICIAN Family Medicine
DX: E11.9 Type 2 diabetes mellitus without complications (principal); S32.10XD Unspecified fracture of sacrum, subsequent encounter for fracture with routine healing; G30.9 Alzheimer's disease, unspecified; D59.10 Autoimmune hemolytic anemia, unspecified; I50.21 Acute systolic (congestive) heart failure; I25.10 Atherosclerotic heart disease of native coronary artery without angina pectoris; Z68.1 Body mass index [BMI] 19.9 or less, adult; R26.9 Unspecified abnormalities of gait and mobility
CPT/HCPCS: 36415; 80048; 85025

== ENCOUNTER → 2025-04-25 11:36 | Outpatient (REF) | payer OTHER, MEDICARE, SELFPAY ==
[2025-04-25 12:35] LABS: Hematocrit 30.0 % (37.0-47.0); Hemoglobin 9.9 g/dL (12.0-16.0); Mean Corp Hgb Conc. 33.0 g/dL (33.0-37.0); Mean Corpuscular Volume 95.5 fL (81.0-99.0); Nucleated Red Blood Cells % 0 %; Platelet Count 302 10^3/uL (130-400); Red Cell Dist. Width 15.8 % (11.5-14.5); Reticulocyte Count 2.3 % (0.4-2.8)
[2025-04-25 12:56] LABS: ALT (SGPT) 24 U/L (0-35); AST (SGOT) 18 U/L (14-36); Albumin 4.1 g/dl (3.5-5.0); Alkaline Phosphatase 95 U/L (38-126); Blood Urea Nitrogen 43 mg/dl (7-17); Calcium 10.1 mg/dl (8.4-10.2); Carbon Dioxide 28 mmol/L (22-30); Chloride 104 mmol/L (98-107); Glucose 151 mg/dl (70-99); LDH 183 U/L (120-246); Potassium 4.6 mmol/L (3.5-5.1); Sodium 140 mmol/L (135-145); Total Protein 6.4 g/dl (6.3-8.2); Uric Acid 6.6 mg/dl (2.5-6.2); eGFR > 60.00
== END ==
LOC: OLABP 11:36
PROVIDERS: ATTENDING PHYSICIAN Family Medicine
DX: E11.9 Type 2 diabetes mellitus without complications (principal); S32.10XD Unspecified fracture of sacrum, subsequent encounter for fracture with routine healing; G30.9 Alzheimer's disease, unspecified; D59.10 Autoimmune hemolytic anemia, unspecified; I50.21 Acute systolic (congestive) heart failure; S32.511D Fracture of superior rim of right pubis, subsequent encounter for fracture with routine healing; R26.9 Unspecified abnormalities of gait and mobility; I25.10 Atherosclerotic heart disease of native coronary artery without angina pectoris; Z68.1 Body mass index [BMI] 19.9 or less, adult
CPT/HCPCS: 36415; 80053; 83615; 84550; 85025; 85045

== ENCOUNTER → 2025-05-02 12:56 | Outpatient (REF) | payer OTHER, MEDICARE, SELFPAY ==
[2025-05-02 13:20] LABS: Hematocrit 29.1 % (37.0-47.0); Hemoglobin 9.7 g/dL (12.0-16.0); Mean Corp Hgb Conc. 33.3 g/dL (33.0-37.0); Mean Corpuscular Volume 93.3 fL (81.0-99.0); Nucleated Red Blood Cells % 0 %; Platelet Count 266 10^3/uL (130-400); Red Cell Dist. Width 15.8 % (11.5-14.5); Reticulocyte Count 2.0 % (0.4-2.8)
[2025-05-02 13:28] LABS: ALT (SGPT) 22 U/L (0-35); AST (SGOT) 18 U/L (14-36); Albumin 4.0 g/dl (3.5-5.0); Alkaline Phosphatase 107 U/L (38-126); Blood Urea Nitrogen 33 mg/dl (7-17); Calcium 9.7 mg/dl (8.4-10.2); Carbon Dioxide 26 mmol/L (22-30); Chloride 104 mmol/L (98-107); Glucose 117 mg/dl (70-99); LDH 154 U/L (120-246); Potassium 4.6 mmol/L (3.5-5.1); Sodium 138 mmol/L (135-145); Total Protein 6.1 g/dl (6.3-8.2); Uric Acid 6.8 mg/dl (2.5-6.2); eGFR > 60.00
== END ==
LOC: OLABP 12:56
PROVIDERS: ATTENDING PHYSICIAN Family Medicine
DX: E11.9 Type 2 diabetes mellitus without complications (principal); I50.21 Acute systolic (congestive) heart failure; S32.10XD Unspecified fracture of sacrum, subsequent encounter for fracture with routine healing; G30.9 Alzheimer's disease, unspecified; I25.10 Atherosclerotic heart disease of native coronary artery without angina pectoris; D59.10 Autoimmune hemolytic anemia, unspecified; Z68.1 Body mass index [BMI] 19.9 or less, adult; R26.9 Unspecified abnormalities of gait and mobility
CPT/HCPCS: 36415; 80053; 83615; 84550; 85025; 85045

== ENCOUNTER → 2025-05-09 13:26 | Outpatient (REF) | payer OTHER, MEDICARE, SELFPAY ==
[2025-05-09 14:08] LABS: Hematocrit 30.6 % (37.0-47.0); Hemoglobin 10.0 g/dL (12.0-16.0); Mean Corp Hgb Conc. 32.7 g/dL (33.0-37.0); Mean Corpuscular Volume 95.6 fL (81.0-99.0); Nucleated Red Blood Cells % 0 %; Platelet Count 235 10^3/uL (130-400); Red Cell Dist. Width 15.8 % (11.5-14.5); Reticulocyte Count 1.9 % (0.4-2.8)
[2025-05-09 14:19] LABS: ALT (SGPT) 23 U/L (0-35); AST (SGOT) 23 U/L (14-36); Albumin 4.2 g/dl (3.5-5.0); Alkaline Phosphatase 83 U/L (38-126); Blood Urea Nitrogen 39 mg/dl (7-17); Calcium 10.1 mg/dl (8.4-10.2); Carbon Dioxide 27 mmol/L (22-30); Chloride 103 mmol/L (98-107); Glucose 112 mg/dl (70-99); LDH 181 U/L (120-246); Potassium 5.0 mmol/L (3.5-5.1); Sodium 138 mmol/L (135-145); Total Protein 6.3 g/dl (6.3-8.2); Uric Acid 7.6 mg/dl (2.5-6.2); eGFR > 60.00
== END ==
LOC: OLABP 13:26
PROVIDERS: ATTENDING PHYSICIAN Family Medicine
DX: E11.9 Type 2 diabetes mellitus without complications (principal); S32.10XD Unspecified fracture of sacrum, subsequent encounter for fracture with routine healing; G30.9 Alzheimer's disease, unspecified; D59.10 Autoimmune hemolytic anemia, unspecified; I50.21 Acute systolic (congestive) heart failure; I25.10 Atherosclerotic heart disease of native coronary artery without angina pectoris; S32.511D Fracture of superior rim of right pubis, subsequent encounter for fracture with routine healing; R26.9 Unspecified abnormalities of gait and mobility
CPT/HCPCS: 36415; 80053; 83615; 84550; 85025; 85045

== ENCOUNTER 2025-07-30 19:02 | Inpatient (IN) | payer MEDICARE, OTHER, SELFPAY ==
[2025-07-30] VITALS (13 sets, daily range): BP systolic 95–143; BP diastolic 42–98; BMI 16.6
[2025-07-30 14:45] LABS: Hematocrit 35.4 % (37.0-47.0); Hemoglobin 13.0 g/dL (12.0-16.0); Mean Corp Hgb Conc. 36.7 g/dL (33.0-37.0); Mean Corpuscular Volume 88.3 fL (81.0-99.0); Nucleated Red Blood Cells % 0 %; Red Cell Dist. Width 14.0 % (11.5-14.5)
[2025-07-30 14:50] LABS: ALT (SGPT) 29 U/L (0-35); AST (SGOT) 30 U/L (14-36); Albumin 5.2 g/dl (3.5-5.0); Alkaline Phosphatase 63 U/L (38-126); Blood Urea Nitrogen 55 mg/dl (7-17); Calcium 9.9 mg/dl (8.4-10.2); Carbon Dioxide 25 mmol/L (22-30); Chloride 96 mmol/L (98-107); Glucose 140 mg/dl (70-99); Potassium 4.3 mmol/L (3.5-5.1); Sodium 133 mmol/L (135-145); Total Protein 7.7 g/dl (6.3-8.2); eGFR 40.05
[2025-07-30] MEDS: NSS 500 IV ×2 (15:53→19:06)
--- NOTE | 2025-07-30 16:02 | ED.GENMED ---
History of Present Illness
<Janice Fried MD - Last Filed: 07/30/25 16:03>
General
Chief Complaint: Failure to Thrive
Time Seen by Provider: 07/30/25 14:52
<Claudette Andre PA-C - Last Filed: 07/30/25 18:22>
History of Present Illness
History of Present Illness:
Patient 85-year-old female with past medical history of CHF, type 2 diabetes, hypertension who presents with several weeks of decreased appetite and abdominal pain. Family has been closely monitoring her lab work and noted an increase in her
creatinine to 1.6 Wednesday which prompted them to seek medical evaluation. Of note patient was started on Lasix in March and since then her creatinine has been rising. Currently patient denies any pain or nausea but reports abdominal pain with
eating and nausea. No fevers, chills, change in bowel movements, chest pain, shortness of breath.
Past History
<Janice Fried MD - Last Filed: 07/30/25 16:03>
Past History
ED Past Medical History: HTN, Hypercholesterolemia and Other (Mitral prolapse)
ED Past Surgical History: None
Social History
Tobacco: Non-smoker
Alcohol: None
Drug: None
Personal:
Living: with family
Phy Exam
<Claudette Andre PA-C - Last Filed: 07/30/25 18:22>
General Physical Exam
General Presentation: well appearing and no apparent distress
General Skin: warm and dry
General Habitus: normal, elderly and frail
General Mental: alert
General Hydration: appears well hydrated
ENT Exam
ENT Exam: EOMI, pharynx normal, neck supple and normocephalic
Eye Exam
Eye Exam: PERRL, cornea clear and conjunctiva normal
Cardiovascular Exam
Cardiovascular Exam: regular rate/rhythm, no edema, no murmur and normal peripheral pulses
Pulmonary Exam
Pulmonary Exam: lungs clear, no respiratory distress, no rales, no crackles, no rhonchi, no stridor, no wheezing and no cough
Gastrointestinal Exam
Gastrointestinal Exam: normal bowel sounds, soft, no organomegaly, no pulsatile mass, non distended and tender (mild tenderness to RUQ on deep palpation)
Neurological Exam
Neurological Exam: alert, oriented x3, no motor deficits and speech normal
Musculoskeletal Exam
Musculoskeletal Exam: full ROM and no edema
Skin Exam
Skin Exam: normal color, warm/dry, no rash and no petechia
Psychiatric Exam
Psychiatric Exam: normal mood/affect
Course
<Janice Fried MD - Last Filed: 07/30/25 16:03>
Orders/Labs/Results
Orders:
Orders
07/30/25 14:23
CMP [Comprehensive Metabolic Panel] Urgent
Complete Blood Count/With Diff Urgent
Lipase Urgent
Comment: ADD ON
07/30/25 15:41
Urinalysis Reflex To Culture Urgent
07/30/25 15:44
0.9% Sodium Chloride 500 ml [Nss] 500 ml IV BOLUS
07/30/25 16:01
COVID-19 Antigen Urgent
Source: Nasal Swab
Influenza A+B Rapid Molecular Urgent
MAGDA Source: Nasal Swab
Specimen Description:
07/30/25 16:11
US Abdomen Limited Urgent
Comment:
Reason For Exam: RUQ, r/o cholecystitis
07/30/25 17:09
Add On- LAB Urgent
Tests Added?: LFT, lipase
Abnormal Lab Results
07/30/25
14:23
WBC 14.2 H 10^3/uL
(4.8-10.8)
RBC 4.01 L 10^6/uL
(4.20-5.40)
Hct 35.4 L %
(37.0-47.0)
MCH 32.4 H pg
(27.0-31.0)
Abs Immat Gran (auto) 0.1 H 10^3/uL
(0-0.05)
Absolute Neuts (auto) 12.5 H 10^3/uL
(1.4-6.5)
Absolute Lymphs (auto) 1.0 L 10^3/uL
(1.2-3.4)
Neutrophils % 88.1 H %
(42.2-75.2)
Lymphocytes % 7.3 L %
(20.5-51.1)
Sodium 133 L mmol/L
(135-145)
Chloride 96 L mmol/L
(98-107)
BUN 55 H mg/dl
(7-17)
Creatinine 1.3 H mg/dL
(0.6-1.0)
Glucose 140 H mg/dl
(70-99)
Albumin 5.2 H g/dl
(3.5-5.0)
07/30/25 14:23
07/30/25 14:23
Vital Signs
Initial and Last Documented VS:
Initial Vital Signs
Temp Pulse Resp BP Pulse Ox
36.4 C 83 16 130/65 100
07/30/25 14:05 07/30/25 14:05 07/30/25 14:05 07/30/25 14:05 07/30/25 14:05
Last Documented Vital Signs
Temp Pulse Resp BP Pulse Ox
36.4 C 78 18 129/60 98
07/30/25 14:05 07/30/25 16:03 07/30/25 16:03 07/30/25 16:00 07/30/25 16:03
<Claudette Andre PA-C - Last Filed: 07/30/25 18:22>
Orders/Labs/Results
Orders:
Orders
07/30/25 14:23
CMP [Comprehensive Metabolic Panel] Urgent
Complete Blood Count/With Diff Urgent
Lipase Urgent
Comment: ADD ON
07/30/25 15:41
Urinalysis Reflex To Culture Urgent
07/30/25 15:44
0.9% Sodium Chloride 500 ml [Nss] 500 ml IV BOLUS
07/30/25 16:01
COVID-19 Antigen Urgent
Source: Nasal Swab
Influenza A+B Rapid Molecular Urgent
MAGDA Source: Nasal Swab
Specimen Description:
07/30/25 16:11
US Abdomen Limited Urgent
Comment:
Reason For Exam: RUQ, r/o cholecystitis
07/30/25 17:09
Add On- LAB Urgent
Tests Added?: LFT, lipase
Abnormal Lab Results
07/30/25
14:23
WBC 14.2 H 10^3/uL
(4.8-10.8)
RBC 4.01 L 10^6/uL
(4.20-5.40)
Hct 35.4 L %
(37.0-47.0)
MCH 32.4 H pg
(27.0-31.0)
Abs Immat Gran (auto) 0.1 H 10^3/uL
(0-0.05)
Absolute Neuts (auto) 12.5 H 10^3/uL
(1.4-6.5)
Absolute Lymphs (auto) 1.0 L 10^3/uL
(1.2-3.4)
Neutrophils % 88.1 H %
(42.2-75.2)
Lymphocytes % 7.3 L %
(20.5-51.1)
Sodium 133 L mmol/L
(135-145)
Chloride 96 L mmol/L
(98-107)
BUN 55 H mg/dl
(7-17)
Creatinine 1.3 H mg/dL
(0.6-1.0)
Glucose 140 H mg/dl
(70-99)
Albumin 5.2 H g/dl
(3.5-5.0)
07/30/25 14:23
07/30/25 14:23
Vital Signs
Initial and Last Documented VS:
Initial Vital Signs
Temp Pulse Resp BP Pulse Ox
36.4 C 83 16 130/65 100
07/30/25 14:05 07/30/25 14:05 07/30/25 14:05 07/30/25 14:05 07/30/25 14:05
Last Documented Vital Signs
Temp Pulse Resp BP Pulse Ox
36.4 C 78 18 129/60 98
07/30/25 14:05 07/30/25 16:03 07/30/25 16:03 07/30/25 16:00 07/30/25 16:03
<Claudette Andre PA-C - Last Filed: 07/30/25 18:22>
MDM/Problems Addressed
Differential Diagnosis Includes:
CBC with slight leukocytosis and left shift. VSS. CMP and lipase all within normal limits. Cr has improved from last check on Wednesday. Given 500cc NSS bolus. RUQ US obtained and shows gallbladder sludge and possible stone. No evidence of
cholecystitis. History does seem consistent with symptomatic cholelithiasis. Given this I spoke with general surgery who has deferred admission to hospitalist service who have accepted the patient.
<Janice Fried MD - Last Filed: 07/30/25 16:03>
*Pulse Oximetry
SaO2: 98
Oxygen Mode of Delivery: Room air
<Claudette Andre PA-C - Last Filed: 07/30/25 18:22>
*Pulse Oximetry
Patient hypoxic: no
*Critical Care Note
Total Time (30-74mins, 75-104mins- exclusive of procedures): Not Applicable
ED Attending Note
<Janice Fried MD - Last Filed: 07/30/25 16:03>
ED Attending Note
Patient seen and examined by attending physician: Yes
I performed the substantive portion of visit, reviewed & personally made and approve the management plan that is documented in note by myself or DELL.: Yes
ED Attending Note:
85-year-old female presents emergency department with reported poor p.o. intake and generalized fatigue for at least a week if not longer. Although patient denies, daughter states that her father reported the patient was complaining of abdominal
discomfort earlier in the day. Patient does note to the epigastric areas where it was uncomfortable before. She denies fever, chills, urinary symptoms, diarrhea, constipation, bleeding/black stools, chest pain, shortness of breath. On exam,
patient awake alert pleasant. Heart regular rate and rhythm, lungs CTA. Patient has distractible mild right upper quadrant tenderness to palpation without rebound or guarding. Workup in progress, white blood cell count and creatinine noted.
Creatinine elevation may be related to recent initiation of Lasix. Gentle IV fluids cautiously ordered.
-
Portions of this chart may have been created with voice recognition software.� Occasional wrong word or��sound alike� substitutions may have occurred due to the inherent limitations of voice recognition software.
Discharge Plan
Departure
Patient Disposition: Admit
Date of Disposition: 07/30/25
Time of Disposition: 18:16
Presentation/result/management discussed w/ accepting MD/DO: Hospitalist
Discharge Problem:
Sludge in gallbladder, Abdominal pain, Nausea
Prescriptions:
No Action
atorvastatin 40 mg Tablet
40 mg PO HS
cyanocobalamin (vitamin B-12) 1,000 mcg Tablet
1,000 mcg PO Q OTHER DAY
aspirin 81 mg Tablet,Delayed Release (Dr/Ec)
81 mg PO DAILY
nortriptyline 10 mg Capsule
20 mg PO HS
furosemide [Lasix] 20 mg Tablet
20 mg PO DAILY
Rx Instructions:
20 mg orally
cholecalciferol (vitamin D3) [Vitamin D3] 25 mcg (1,000 unit) Tablet
25 mcg PO DAILY
latanoprost 0.005 % Drops
1 drp BOTH EYES HS
prochlorperazine maleate 10 mg Tablet
10 mg PO Q6H PRN (Reason: nausea)
ondansetron 8 mg Tablet,Disintegrating
8 mg PO Q8H PRN (Reason: nausea)
folic acid 1 mg Tablet
1 mg PO DAILY
Triad Wound Dressing Paste
1 applic TOPICAL DAILY
acetaminophen 500 mg Tablet
1,000 mg PO Q4HPRN PRN (Reason: mild pain)
nystatin 100,000 unit/gram Cream
1 applic TOPICAL BID
spironolactone 25 mg Tablet
25 mg PO DAILY Qty: 30 0RF
lisinopril 5 mg Tablet
5 mg PO DAILY Qty: 30 0RF
donepezil 10 mg Tablet
10 mg PO HS
calcitonin (salmon) 200 unit/actuation [place],Non-Aerosol
1 spray INTRANASAL (ALT) DAILY
dorzolamide-timolol (PF) [Cosopt (PF)] 2-0.5 % Dropperette
1 drp BOTH EYES BID
metformin 500 mg tablet
1,000 mg PO BID@0800,1700
metoprolol succinate 25 mg tablet extended release 24 hr
25 mg PO DAILY
insulin lispro [Humalog U-100 Insulin] 100 unit/mL solution
1 sliding scale dose SC AC
Rx Instructions:
<300 mg/dL - o units, 300-350 - 1 unit, 351-400 - 2 units, 401-450 - 3, units>451 - 4 units,
dapagliflozin propanediol 10 mg tablet
10 mg PO DAILY
Referrals:
Jenifer Raza MD [Family Provider, Family Practice]
Interventions
Interventions:
*Risk Screen - Suicide Last Done: 07/30/25 14:05
*General Assessment Last Done: 07/30/25 14:05
*Neglect/Abuse Screening Last Done: 07/30/25 14:05
*ED COVID-19 Vaccine History Last Done: 07/30/25 14:05
*ED Influenza Vaccine History Last Done: 07/30/25 14:05
[facility] Fall Risk Assessment Tool Last Done: 07/30/25 15:15
Discharge Date and Time
Print Language: SWEDISH
[2025-07-30 16:32] LABS: COVID-19 Antigen Negative (Negative)
[2025-07-30 17:55] LABS: Lipase 299 U/L (23-300)
--- NOTE | 2025-07-30 18:17 | HPS.HSE ---
Addendum entered and electronically signed by Kentrell Cordova MD 07/30/25 20:26:
This is an addendum to H&P written by Fauzia Barros on 07/30/2025. �Patient seen and examined independently with CASING FLUSHER.
85-year-old female past medical history of chronic HFrEF, autoimmune hemolytic anemia, hyperlipidemia, dementia, diabetes, glucoma, presenting with weeks of decreased appetite and RUQ abdominal pain and nausea. �Outpatient labs showed creatinine
1.6. �No fevers or chills.
Vital signs unremarkable.
Labs show leukocytosis of 14. �Creatinine 1.3.
Abdominal ultrasound shows gallbladder sludge, no gallbladder wall thickening or biliary tract dilatation. �Negative sonographic Mon sign. �Lipase 300.
Patient with biliary colic, now resolved pain and [place]UST[place]. �N.p.o., gentle IV fluids, Zosyn, general surgery consulted. �Hold Lasix, lisinopril, spironolactone, dapagliflozin.
UPDATE- Patient went into narrow complex tachycardia with heart rate up to 220s suggestive of SVT. �She was given 6 mg of adenosine and momentarily went into irregular heart rate possibly suggestive of A-fib. �She immediately went back to heart rate
of 220s and was given 12 mg adenosine again which was again unsuccessful and HR back to 220s. �Then she was given 10 mg of Cardizem with conversion to sinus rhythm. �EKG afterwards shows ST depressions in lateral leads which were not present
previously concerning for potential ischemia.
Patient denies any chest pain. �Trend troponins, check TSH, echocardiogram.� Start aspirin, heparin drip. Cardiology consulted.
Original Note:
Family Physician
-
Family Physician: Jenifer Raza
Chief Complaint
-
Right upper quadrant abdominal pain, decreased appetite, vomiting
History of Present Illness
85-year-old female complaining of 1 week of decreased appetite with right upper quadrant abdominal pain and vomiting up white spit. Her family has been monitoring her lab work noticed increasing creatinine to 1.6 on Wednesday which prompted them to
seek medical attention. She was started on Lasix in March with elevating creatinine levels. The patient reports abdominal pain with eating and nausea along with decreased appetite there is no fever, chills, constipation, chest pain, palpitations,
cough, shortness of breath, urinary symptoms. Her daughter Manda is at bedside and states she has had progressive decline in eating as it makes her sick this includes not drinking anything also. While in the ED at proximately 1910 patient went
into rapid rhythm appeared to be SVT 220s was given IV adenosine 6 mg which briefly broke and then required an IV adenosine 12 mg went back to rate of 210 with BP 102/60. Patient was given IV Cardizem 10 mg bolus rhythm broke to sinus rhythm [address] depression in lateral leads. The patient denied any chest pain reported some slight headache posterior head. Cardiology was made aware.
The past medical history of Dementia, CHF, REDUCED EF 30-35% CAD, DM 2, and, HLD, autoimmune hemolytic anemia, frequent falls, sacral fracture 04/28/2025
Medical History
Past Medical History
Past Medical History: Reports Other
Additional Past Medical History:
Coronary Artery Disease
Systolic CHF reduced EF 30 to 35% March 2025
Moderate�severe MR to severe MS March 2025 echo
Diabetes Mellitus, Type II
Essential Hypertension
Hyperlipidemia
Acquired Autoimmune Hemolytic Anemia
Alzheimer's Dementia
Past Surgical History: Reports Other
Additional Past Surgical History:
Cataract Surgery
Hemorrhoid Surgery
Social History
Tobacco: Non-smoker
Alcohol: None
Personal:
Living: Assisted Living
Family History
Family History: Not pertinent
Allergies / Home Medications
Allergies reflects when Allergies were last updated in [employer].
Home Medications with original date entered in [employer]
Allergy/Medication List:
Allergies
Allergy/AdvReac Type Severity Reaction Status Date / Time
tramadol HCl (From Ultracet) Allergy Nausea Verified 07/30/25 14:04
Home Medications
aspirin 81 mg tablet,delayed release 81 mg PO DAILY Blood Clot Prevention/Tx 12/14/24
atorvastatin 40 mg tablet 40 mg PO HS High Cholesterol 12/14/24
cholecalciferol (vitamin D3) 25 mcg (1,000 unit) tablet (Vitamin D3) 25 mcg PO DAILY Supplement 12/14/24
cyanocobalamin (vitamin B-12) 1,000 mcg tablet 1,000 mcg PO Q OTHER DAY Supplement 12/14/24
furosemide 20 mg tablet (Lasix) 20 mg PO DAILY Fluid Retention/Swelling 12/14/24
nortriptyline 10 mg capsule 20 mg PO HS Mental Health/Anxiety 12/14/24
folic acid 1 mg tablet 1 mg PO DAILY Supplement 02/18/25
latanoprost 0.005 % eye drops 1 drp BOTH EYES HS Eye Condition 02/18/25
ondansetron 8 mg disintegrating tablet 8 mg PO Q8H PRN nausea 02/18/25
prochlorperazine maleate 10 mg tablet 10 mg PO Q6H PRN nausea 02/18/25
acetaminophen 500 mg tablet 1,000 mg PO Q4HPRN PRN mild pain 04/12/25
nystatin 100,000 unit/gram topical cream 1 applic topical BID Rash 04/12/25
wound dressings (Triad Wound Dressing paste) 1 applic topical DAILY Erythema 04/12/25
lisinopril 5 mg tablet 5 mg PO DAILY #30 tabs 04/18/25
spironolactone 25 mg tablet 25 mg PO DAILY #30 tabs 04/18/25
calcitonin (salmon) 200 unit/actuation nasal spray 1 spray intranasal (ALT) DAILY 07/30/25
dapagliflozin propanediol 10 mg tablet 10 mg PO DAILY Diabetes 07/30/25
donepezil 10 mg tablet 10 mg PO HS 07/30/25
dorzolamide-timolol (PF) 2 %-0.5 % eye drops in a dropperette (Cosopt (PF)) 1 drp BOTH EYES BID Eye Condition 07/30/25
insulin lispro 100 unit/mL subcutaneous solution (Humalog U-100 Insulin) 1 sliding scale dose SC AC 07/30/25
metformin 500 mg tablet 1,000 mg PO BID@0800,1700 Diabetes 07/30/25
metoprolol succinate 25 mg tablet,extended release 24 hr 25 mg PO DAILY Heart Disease/Condition 07/30/25
Review of Systems
-
History Source: Patient and Family (Daughter Manda at bedside)
A 12 point ROS was completed and negative except as noted: Yes
Constitutional: Reports Fatigue; Denies Fever or Chills
EENT: Reports Other (Decreased appetite/oral intake); Denies Sore Throat or Runny Nose
Respiratory: Denies Cough or Trouble Breathing
Cardiac: Denies Chest Pain or Palpitations
Abdomen/GI: Reports Abdominal Pain (Right upper quadrant), Nausea and Vomiting (Post prandial)
: Denies Dysuria, Frequency or Urgency
Musculoskeletal: Denies Joint Pain or Edema
Skin: Denies Itching or Rash
Neurological: Denies Dizzy, Headache or Weakness
Endocrine: Reports No Symptoms
Hematologic/Lymphatic: Reports No Symptoms
Psych: Reports Calm
Physical Exam
Vital Signs
Vital Signs
Temp Pulse Resp BP Pulse Ox
97.5 F 78 18 129/60 98
07/30/25 14:05 07/30/25 16:03 07/30/25 16:03 07/30/25 16:00 07/30/25 16:03
Physical Exam
General: No Fever or Chills
HEENT: NormoCephalic, Anicteric, PERRLA, [place] Conjunctivae, No Ptosis and Other (Dry oral mucosa)
Respiratory: Clear; No Wheezes or Rales
Cardiac: S1/S2 and Regular Rhythm; No Murmur, Rub, Gallop or Peripheral Edema
GI: Soft, Non Distended, Normal Bowel Sounds, Tender (Right upper quadrant) and No Hepatosplenomegaly
Rectal: Deferred by Provider
Genito-urinary: Deferred by me
Musculoskeletal: No Clubbing, No Cyanosis and No Edema
Skin: Warm; No Rash
Neuro: Awake, Alert, Oriented (To name, place, daughter, , some of his), Cranial Nerves Intact and No Sensory Deficits; No Slurred Speech, Facial Droop, Tremors or Sedated
Psych: Calm
Laboratory Results
-
07/30/25 14:23
07/30/25 14:23
Laboratory Results
Total Bilirubin 1.1 mg/dl (0.2-1.3) 07/30/25 14:23
AST 30 U/L (14-36) 07/30/25 14:23
ALT 29 U/L (0-35) 07/30/25 14:23
Alkaline Phosphatase 63 U/L (38-126) 07/30/25 14:23
Lipase 299 U/L (23-300) 07/30/25 14:23
Data Reviewed
-
Ultrasound: Report Reviewed by me
Lab Data: Labs Reviewed by me
Impression/Plan
-
Impression/plan:
Admit to IVU
#Acute SVT versus rapid A-fib with RVR with post ST depression concern possible subendocardial NSTEMI�no current chest pain
-Patient required adenosine 6 mg followed by 12 mg converted briefly however rhythm returned appeared to be A-fib
- IV 10 mg bolus was given due to soft BP 102/60
Repeat EKG normal sinus rhythm with ST depression in lateral leads
-Trend troponin
- Discussed with [facility] cardiology Dr. Messer
- Aspirin 325 mg noW
-IV heparin drip
- N.p.o. after midnight
- 2D echo
#HFrEF (30-35%) March 2025
- Conservative management; poor candidate for aggressive measures--has been having progressive dementia.
- Continue Toprol-XL 25 mg daily
-Hold Lasix, lisinopril 5 mg daily, and Farxiga 10 mg daily, spironolactone 25 mg daily. Due to AUSTIN
Valvular heart disease-severe MR, moderate to severe MS:
- Conservative management; poor candidate for aggressive measures.
- Try to maintain good volume status with medications as noted above
# Hypotension/HTN�benign
BP 129/60 > 102/60
-Hold lisinopril, spironolactone
-Continue metoprolol succinate 25 mg daily
#Postprandial abdominal pain/anorexia likely biliary colic
#Acute leukocytosis concern for possible developing cholecystitis
WBC 14.2 with left shift, afebrile, normotensive (WBC was 10.5 on 07/20/2025 according to patient's portal)
COVID-negative
-IV Zosyn
Iv nss 500 cc given in ER , Continue IV NSS 40 cc an hour x 500 cc bag total
- Consult general surgery
- Clear liquids tonight
N.p.o. midnight
-Zofran as needed
Abdominal ultrasound:
Gallbladder sludge. No gallbladder wall thickening or biliary tract dilation it is Mon
sign
Diffusely coarsened hepatic echotexture without spacing loculation
#AUST[place] due to volume depletion/medication diuretics
Creat 1.3 baseline 0.8 on 05/09/2025
-Hold Lasix, spironolactone, lisinopril, Jardiance, metformin twice daily
- Follow BMP
#Dementia
Oriented to name, place, daughter,
-Continue donepezil
#Chronic systolic CHF
I/O, daily weight
Hold Lasix, spironolactone due to [place]
#DM 2
Accu-Cheks with SSI check HgbA1c
N.p.o. hold Jardiance, metformin 1000 mg twice daily
#Autoimmune hemolytic anemia
Hgb 13, platelet clumping unable to give platelet count(plt 245 on patient's portal 07/20/2025 on phone)
# Chronic daily migraine
Follows with [facility]
-Continue nortriptyline
Tylenol as needed
#Chronic ambulatory dysfunction with frequent fall
history of sacral fracture March 2025
PT/OT/case mgmt
DVT prophylaxis
SCDs
Full code
[2025-07-30] MEDS: ADENOCARD 6 MG IV (19:16)
[2025-07-30] MEDS: ADENOCARD 12 MG IV (19:22)
[2025-07-30] MEDS: CARDIZEM 10 MG IV (19:27)
[2025-07-30 20:12] LABS: Hematocrit 28.0 % (37.0-47.0); Hemoglobin 10.0 g/dL (12.0-16.0); Mean Corp Hgb Conc. 35.7 g/dL (33.0-37.0); Mean Corpuscular Volume 90.3 fL (81.0-99.0); Platelet Count 182 10^3/uL (130-400); Red Cell Dist. Width 14.1 % (11.5-14.5)
[2025-07-30 20:25] LABS: Magnesium 2.0 mg/dl (1.6-2.3)
[2025-07-30 20:26] LABS: Troponin I 0.054 ng/ml
[2025-07-30] MEDS: TYLENOL 650 MG PO (20:26)
[2025-07-30] MEDS: HEPARIN 25000 UNITS/250 ML IV (20:45)
[2025-07-30 20:47] LABS: Urine Character Clear (Clear)
[2025-07-30 21:02] LABS: Urine Red Blood Cell 0-2 /HPF (0-2)
[2025-07-30 21:06] LABS: APTT 23.0 Sec (23.4-35.0)
--- NOTE | 2025-07-30 23:00 | PTCARENOTE ---
Pt arrived to floor via stretcher from the ED. Pt AAOx2, forgetful, pleasantly confused, hx Alzheimers Dementia. Son at bedside to assist with admit questions/ info. Pt ambulatory from stretcher to bed with assist x1. HR on the monitor in the 70's
in NSR with prolonged QT. POX 100% on RA. Lungs clear. + bowel. Denies complaints of abd pain or nausea at this time. Pt reports knowing when she has to use bathroom when needed. right forearm int infusing Heparin gtt 500units/hr per MD order. Left
forearm int infusing NSS@40ml/hr as ordered. Palpable peripheral pulses present. Knee high seq in place. Call coon in reach. Bed alarm on bed. Son at bedside. Will continue to monitor.
[2025-07-30] MEDS: LIPITOR 40 MG PO (23:30)
[2025-07-30] MEDS: ZOSYN 50 IV (23:30)
[2025-07-30] MEDS: XALATAN OPHTHALMIC SOLUTION 1 DROP BOTH EYES (23:30)
[2025-07-30] MEDS: ARICEPT 10 MG PO (23:30)
[2025-07-30] MEDS: PAMELOR 20 MG PO (23:30)
[2025-07-30 23:42] LABS: Glucose - Point of Care 94 mg/dl (70-99)
[2025-07-31] VITALS (15 sets, daily range): BP systolic 92–135; BP diastolic 48–72; BMI 14.4
[2025-07-31 02:32] LABS: APTT 53.7 Sec (23.4-35.0)
[2025-07-31 02:48] LABS: Troponin I 0.290 ng/ml
[2025-07-31] MEDS: ZOSYN 50 IV ×3 (05:29→19:58)
[2025-07-31 05:33] LABS: Glucose - Point of Care 81 mg/dl (70-99)
[2025-07-31 05:48] LABS: Hematocrit 31.4 % (37.0-47.0); Hemoglobin 10.8 g/dL (12.0-16.0); Mean Corp Hgb Conc. 34.4 g/dL (33.0-37.0); Mean Corpuscular Volume 91.3 fL (81.0-99.0); Nucleated Red Blood Cells % 0 %; Platelet Count 194 10^3/uL (130-400); Red Cell Dist. Width 14.3 % (11.5-14.5)
[2025-07-31 06:13] LABS: ALT (SGPT) 23 U/L (0-35); AST (SGOT) 27 U/L (14-36); Albumin 4.1 g/dl (3.5-5.0); Alkaline Phosphatase 55 U/L (38-126); Blood Urea Nitrogen 43 mg/dl (7-17); Calcium 9.1 mg/dl (8.4-10.2); Carbon Dioxide 26 mmol/L (22-30); Chloride 101 mmol/L (98-107); Estimated Creatinine Clearance 20 ml/min; Glucose 78 mg/dl (70-99); HDL Cholesterol 41 mg/dl; LDL Cholesterol, Calculated 37 mg/dl; Potassium 3.8 mmol/L (3.5-5.1); Sodium 135 mmol/L (135-145); Total Protein 6.1 g/dl (6.3-8.2); Very Low Density Lipoprotein 15 mg/dl (0-30); eGFR 44.08
[2025-07-31 07:26] LABS: Glycohemoglobin (HgbA1c) 6.6 % (4.0-5.9)
--- NOTE | 2025-07-31 08:00 | PTCARENOTE ---
Assumed care of pt from prev nsg shift; Pt AAOx1-2, confused/forgetful to time & at times to place. Pt w/no c/o CP or SOB. Pt's VSS w/HR in the 70's & BP 108/48 this AM. Pt is SR on telemetry monitoring. Pt w/IV Heparin drip infusing as ordered
through patent IV line. Pt NPO for HIDA scan this AM & until seen by Cardiology. Pt w/bed alarm in place for pt's safety. Plan of care ongoing.
--- NOTE | 2025-07-31 08:09 | CON.CAR ---
Addendum entered and electronically signed by Curtis Messer MD 07/31/25 15:00:
I reviewed and agree with the note by AVELINA and it accurately reflects our care.
I saw and evaluated the patient, and I provided the substantive portion of the medical decision making. My assessment and plan is below:
85-year-old female with cardiomyopathy (LVEF 30-35% previously), nonobstructive CAD, mitral regurgitation, mitral stenosis, and hypertension who presents with 1 week of poor p.o. intake and lack of appetite/nausea. In the ER she was found to have
A-fib with RVR, mild troponin elevation, and abnormal ECG for which cardiology is consulted. History was obtained from patient and her family. They report that for the past week she has not been eating or drinking much which patient states is
because she does not have an appetite. She has been gagging and spitting up phlegm when she tries to eat but not vomiting. This is why she came to the hospital. She denies chest pain, palpitations, and shortness of breath.
Physical exam: RRR, no murmurs, no lower extremity edema, clear lungs bilaterally
Labs notable for creatinine 1.3 (baseline 0.8), troponin 0.054 -> 0.290 -> 0.272
ECG 07/30/2025 at 1915: A-fib with RVR, HR 206 bpm, lateral ST depressions
ECG 07/31/2025 at 1423: NSR, ST depressions and T wave inversions in the anterolateral leads
TTE 07/31/2025: LVEF 50-55%, mild AR, mild MS, mod MR, mild/mod TR, PASP 28 mmHg
Paroxysmal atrial fibrillation with RVR: Has been in normal sinus rhythm since ER. Despite very elevated rates, she was asymptomatic. We will elect for a rate control strategy and increase metoprolol succinate to 25 mg twice daily. [id number]
at least 6. She is currently on a heparin drip for anticoagulation. If there are no further procedures planned, we will switch to apixaban 2.5 mg twice daily.
Troponin elevation: Most likely nonischemic myocardial injury in the setting of RVR and AUSTIN. She has lateral ST depressions on ECG but consistently denies chest pain, troponin is flat (peaked at 0.29), and echocardiogram shows no regional wall
motion abnormalities.
HFrEF: LVEF 50-55% this admission from 30-35% in March. Increase metoprolol as above. Lisinopril, Farxiga and spironolactone on hold for AUSTIN.
AUSTIN: Likely due to dehydration. Improving. Continue to monitor.
Nonobstructive coronary artery disease: Stop aspirin once we start apixaban. Continue statin. LDL 37 this admission.
Original Note:
Consultation
Consultation Request
Date/Time Consultation Requested: 07/30/2025 19:54
Date/Time Consultation Performed: 07/30/2025 09:00
Requesting Provider: AVELINA Rebollar
Performing Provider: AVELINA Purcell for Dr. Messer
Reason for Consultation: Atrial fibrillation with rapid ventricular response, abnormal EKG
Medical History
-
Chief Complaint: Right upper quadrant pain with decreased appetite and vomiting
History of Present Illness:
Day Barriga is an 85-year-old female (known to Dr. Taylor, her primary youth counselor), with moderate to severe mitral valve stenosis, severe mitral valve regurgitation, cardiomyopathy (LVEF 30-35%), nonobstructive CAD, PSVT, hypertension,
hypercholesterolemia, hemolytic anemia, and dementia who presented to the emergency department yesterday with right upper quadrant pain. She also endorsed decreased appetite and vomiting. Abdominal ultrasound with gallbladder sludge. She was
found to have an AUSTIN and was referred to the emergency department. While in the ER she went into a rapid rhythm. It appears to be atrial fibrillation with rapid ventricular response. There was concern for SVT. She was given intravenous adenosine
6 mg which slowed the rate down and did appear to be atrial fibrillation. An additional 12 mg was given when her rate jumps back into the 200s. She was then given a diltiazem bolus of 10 mg. Rhythm broke to sinus with lateral ST depression. She
denies chest pain, shortness of breath, dizziness, and syncope/presyncope.
Her family is at the bedside to provide collateral information.
Past Medical History
Past Medical History: Arrhythmias (PSVT), CAD (Nonobstructive), CHF (Cardiomyopathy [30-35%]), HTN, Hypercholesterolemia, Valvular Disease (Mitral stenosis with mitral regurgitation), Psychiatric (Dementia) and Other (Hemolytic anemia)
Social History
Tobacco: Non-Smoker
Alcohol: None
Personal:
Living: With Family
Family History
Family History: Reviewed & Not Pertinent
Allergies / Home Medications
Allergy/AdvReac Type Severity Reaction Status Date / Time
tramadol HCl (From Ultracet) Allergy Nausea Verified 07/30/25 14:04
�Medication �Instructions �Recorded �Confirmed �Type
aspirin 81 mg tablet,delayed 81 mg PO DAILY Blood Clot 12/14/24 07/30/25 History
release Prevention/Tx
atorvastatin 40 mg tablet 40 mg PO HS High Cholesterol 12/14/24 07/30/25 History
cholecalciferol (vitamin D3) 25 25 mcg PO DAILY Supplement 12/14/24 07/30/25 History
mcg (1,000 unit) tablet (Vitamin
D3)
cyanocobalamin (vitamin B-12) 1,000 mcg PO Q OTHER DAY Supplement 12/14/24 07/30/25 History
1,000 mcg tablet
furosemide 20 mg tablet (Lasix) 20 mg PO DAILY Fluid 12/14/24 07/30/25 History
Retention/Swelling
nortriptyline 10 mg capsule 20 mg PO HS Mental Health/Anxiety 12/14/24 07/30/25 History
folic acid 1 mg tablet 1 mg PO DAILY Supplement 02/18/25 07/30/25 History
latanoprost 0.005 % eye drops 1 drp BOTH EYES HS Eye Condition 02/18/25 07/30/25 History
ondansetron 8 mg disintegrating 8 mg PO Q8H PRN nausea 02/18/25 07/30/25 History
tablet
prochlorperazine maleate 10 mg 10 mg PO Q6H PRN nausea 02/18/25 07/30/25 History
tablet
acetaminophen 500 mg tablet 1,000 mg PO Q4HPRN PRN mild pain 04/12/25 07/30/25 History
nystatin 100,000 unit/gram topical 1 applic topical BID Rash 04/12/25 07/30/25 History
cream
wound dressings (Triad Wound 1 applic topical DAILY Erythema 04/12/25 07/30/25 History
Dressing paste)
lisinopril 5 mg tablet 5 mg PO DAILY #30 tabs 04/18/25 07/30/25 Rx
spironolactone 25 mg tablet 25 mg PO DAILY #30 tabs 04/18/25 07/30/25 Rx
calcitonin (salmon) 200 1 spray intranasal (ALT) DAILY 07/30/25 07/30/25 History
unit/actuation nasal spray
dapagliflozin propanediol 10 mg 10 mg PO DAILY Diabetes 07/30/25 07/30/25 History
tablet
donepezil 10 mg tablet 10 mg PO HS 07/30/25 07/30/25 History
dorzolamide-timolol (PF) 2 %-0.5 % 1 drp BOTH EYES BID Eye Condition 07/30/25 07/30/25 History
eye drops in a dropperette (Cosopt
(PF))
insulin lispro 100 unit/mL 1 sliding scale dose SC AC 07/30/25 07/30/25 History
subcutaneous solution (Humalog
U-100 Insulin)
metformin 500 mg tablet 1,000 mg PO BID@0800,1700 Diabetes 07/30/25 07/30/25 History
metoprolol succinate 25 mg 25 mg PO DAILY Heart 07/30/25 07/30/25 History
tablet,extended release 24 hr Disease/Condition
Review of Systems
-
History Source: Patient
All other systems: Negative unless noted
Constitutional: No Symptoms
EENT: No Symptoms
Respiratory: No Symptoms
Cardiac: No Symptoms
Abdomen/GI: Nausea
: No Symptoms
Musculoskeletal: No Symptoms
Skin: No Symptoms
Neurological: No Symptoms
Endocrine: No Symptoms
Hematologic/Lymphatic: No Symptoms
Physical Exam
Vital Signs
Temp Pulse Resp BP Pulse Ox
97.4 F 73 20 121/54 97
07/31/25 07:00 07/31/25 05:30 07/31/25 07:00 07/31/25 05:00 07/31/25 07:00
Lab Results
07/31/25 04:51
07/31/25 04:53
Troponin I 0.290 ng/ml H* D 07/31/25 02:05
Physical Exam
General: Well Developed, Well Nourished, No Apparent Distress and Comfortable
HEENT: Normocephalic, Anicteric and Moist Mucous Membranes
Respiratory: Clear and Non Labored Respirations
Cardiac: S1/S2, Regular Rhythm and Murmur; Negative Peripheral Edema
Breast: Deferred by me
GI: Soft, Non Distended and Normal Bowel Sounds
Rectal: Deferred by Provider
Genito-urinary: No Costovertebral Tender
Musculoskeletal: No Clubbing, No Cyanosis and No Edema
Skin: Warm and Dry
Neuro: Awake and Alert
Hematologic/Lymphatic: No Lymphadenopathy
Psych: Calm
Impression / Plan
-
I/P: 85F with moderate to severe mitral valve stenosis, severe mitral valve regurgitation, cardiomyopathy (LVEF 30-35%), nonobstructive CAD, PSVT, hypertension, hypercholesterolemia, hemolytic anemia, and dementia who presented to the emergency
department yesterday with right upper quadrant pain.
Primary youth counselor: Dr. Taylor
Atrial fibrillation with RVR, NEW
- s/p adenosine 6g & 12mg then diltiazem 10mg
- Now in sinus, increase metoprolol succinate to BID
- Oral Anticoagulation: None prior to arrival, continue heparin gtt while GI status is sorted out, stop ASA when anticoagulation is started
- [id number]: score at least 6 (Heart failure, HTN, age 75 or more, Vascular disease, female gender)
Abnormal troponin, myocardial injury in the setting of atrial arrhythmia
- Chest pain-free
- Peak 0.290
Abnormal EKG
- Lateral ST depression
- Denies chest pain
Abdominal pain, with associated poor oral intake and and nausea
- Concern for biliary colic, GS consulted
Mitral stenosis, moderate to severe
Mitral regurgitation, severe
CAD, non obstructive, chest pain free
PSVT, chronic, continue beta bahman
HTN, chronic, stable
Type II DM, Hgba1c 6.6%
Dementia
Data Reviewed
-
EKG: Report Reviewed by me
Ultrasound: Report Reviewed by me
Medical Tests (Nuc Med, Echo etc): Report Reviewed by me
Labs: Labs Reviewed by me
Old Records: Reviewed
--- NOTE | 2025-07-31 09:15 | CON.GS ---
Medical History
-
Chief Complaint: Dysphagia, abdominal pain
History of Present Illness:
Patient is an 85 yo F with a PMH of Alzheimer's dementia, HTN, HLD, CAD, CHF, moderate to severe MR, NIDDM, hemolytic anemia, and s/p hemorrhoidectomy who presents with approximately 1 week of decreased appetite and failure to thrive. She currently
resides at [facility]. Family present at bedside and helps provide history. They report that on 07/23 she developed issues with poor PO intake and spitting up sputum. No clear episodes of nausea or vomiting. No vomiting of
undigested food. No hemoptysis. No history of prior issues with dysphagia. Yesterday she reported abdominal pain (unspecified) prompting presentation to the ER. No fevers or chills. No jaundice, pale stools, or tea colored urine. No
fluctuations in GI function. No prior history or knowledge of issues as relates to her gallbladder. No prior attacks of similar symptoms. She does not use NSAIDs. She previously used steroids years ago for issues related to her hemolytic anemia,
but none recently. No history of GERD, not currently on a PPI. No prior EGDs noted or in the system. Currently, she denies any symptoms.
Of note, on admission yesterday she had issues with SVT that did not respond to several doses of Adenosine. She was given 10 mg of Cardizem with conversion to a sinus rhythm. She has mild elevation in her troponin. Cardiology consult noted. Plan
for TTE today. Started on a Heparin drip.
Past Medical History
Past Medical History: Arrhythmias (SVT), CHF, HTN, Hypercholesterolemia, NIDDM and Psychiatric (Alzheimer's dementia, autoimmune hemolytic anemia)
Past Surgical History: Other (Hemorrhoidectomy, cataract)
Social History
Tobacco: Non-Smoker
Alcohol: Occasional (Infrequent half glass of wine)
Drug: None
Personal:
Living: [facility]
Family History
Family History: Reviewed & Noncontributory
Allergies / Home Medications
Allergy/AdvReac Type Severity Reaction Status Date / Time
tramadol HCl (From Ultracet) Allergy Nausea Verified 07/30/25 14:04
�Medication �Instructions �Recorded �Confirmed �Type
aspirin 81 mg tablet,delayed 81 mg PO DAILY Blood Clot 12/14/24 07/30/25 History
release Prevention/Tx
atorvastatin 40 mg tablet 40 mg PO HS High Cholesterol 12/14/24 07/30/25 History
cholecalciferol (vitamin D3) 25 25 mcg PO DAILY Supplement 12/14/24 07/30/25 History
mcg (1,000 unit) tablet (Vitamin
D3)
cyanocobalamin (vitamin B-12) 1,000 mcg PO Q OTHER DAY Supplement 12/14/24 07/30/25 History
1,000 mcg tablet
furosemide 20 mg tablet (Lasix) 20 mg PO DAILY Fluid 12/14/24 07/30/25 History
Retention/Swelling
nortriptyline 10 mg capsule 20 mg PO HS Mental Health/Anxiety 12/14/24 07/30/25 History
folic acid 1 mg tablet 1 mg PO DAILY Supplement 02/18/25 07/30/25 History
latanoprost 0.005 % eye drops 1 drp BOTH EYES HS Eye Condition 02/18/25 07/30/25 History
ondansetron 8 mg disintegrating 8 mg PO Q8H PRN nausea 02/18/25 07/30/25 History
tablet
prochlorperazine maleate 10 mg 10 mg PO Q6H PRN nausea 02/18/25 07/30/25 History
tablet
acetaminophen 500 mg tablet 1,000 mg PO Q4HPRN PRN mild pain 04/12/25 07/30/25 History
nystatin 100,000 unit/gram topical 1 applic topical BID Rash 04/12/25 07/30/25 History
cream
wound dressings (Triad Wound 1 applic topical DAILY Erythema 04/12/25 07/30/25 History
Dressing paste)
lisinopril 5 mg tablet 5 mg PO DAILY #30 tabs 04/18/25 07/30/25 Rx
spironolactone 25 mg tablet 25 mg PO DAILY #30 tabs 04/18/25 07/30/25 Rx
calcitonin (salmon) 200 1 spray intranasal (ALT) DAILY 07/30/25 07/30/25 History
unit/actuation nasal spray
dapagliflozin propanediol 10 mg 10 mg PO DAILY Diabetes 07/30/25 07/30/25 History
tablet
donepezil 10 mg tablet 10 mg PO HS 07/30/25 07/30/25 History
dorzolamide-timolol (PF) 2 %-0.5 % 1 drp BOTH EYES BID Eye Condition 07/30/25 07/30/25 History
eye drops in a dropperette (Cosopt
(PF))
insulin lispro 100 unit/mL 1 sliding scale dose SC AC 07/30/25 07/30/25 History
subcutaneous solution (Humalog
U-100 Insulin)
metformin 500 mg tablet 1,000 mg PO BID@0800,1700 Diabetes 07/30/25 07/30/25 History
metoprolol succinate 25 mg 25 mg PO DAILY Heart 07/30/25 07/30/25 History
tablet,extended release 24 hr Disease/Condition
Review of Systems
-
A 10 point review of systems was completed, and was negative except as per HPI.
Physical Exam
Vital Signs
Temp Pulse Resp BP Pulse Ox
97.4 F 67 20 110/54 98
07/31/25 07:00 07/31/25 08:30 07/31/25 07:00 07/31/25 08:00 07/31/25 08:30
07/30/25 07/31/25 08/01/25
06:59 06:59 06:59
Actual Weight 38 kg
Body Mass Index (BMI) 14.4
Lab Results
07/31/25 04:51
07/31/25 04:53
WBC 9.1 10^3/uL (4.8-10.8) 07/31/25 04:51
Hgb 10.8 g/dL (12.0-16.0) L 07/31/25 04:51
Hct 31.4 % (37.0-47.0) L 07/31/25 04:51
Plt Count 194 10^3/uL (130-400) 07/31/25 04:51
Abs Immat Gran (auto) 0.0 10^3/uL (0-0.05) 07/31/25 04:51
Neutrophils % 70.7 % (42.2-75.2) 07/31/25 04:51
Physical Exam
General: Well Developed, Well Nourished and No Apparent Distress
HEENT: Normocephalic and Anicteric
Respiratory: Non Labored Respirations
Cardiac: Regular Rhythm
GI: Soft, Non Tender (Negative Mon's sign), Non Distended and Other (Nonperitoneal)
Musculoskeletal: No Edema
Skin: Warm and Dry
Neuro: Nonfocal/Grossly Intact
Data Reviewed
-
Ultrasound: Image Personally Visualized and interpreted and Report Reviewed by me
Labs: Labs Reviewed by me
Old Records: Reviewed
Assessment / Plan
-
Patient is an 85 yo F p/w dysphagia and failure to thrive in the setting of abdominal discomfort
The natural history and pathophysiology of biliary and stone disease was discussed. Workup thus far including labs and imaging as a relates to her gallbladder were reviewed. Clinical history not entirely consistent with that of biliary colic or
acute cholecystitis, though limited based on patient's underlying dementia. Currently her symptoms and physical exam do not support a diagnosis of cholecystitis. Differential includes gastritis or duodenitis. Would not recommend operative
intervention at this time especially in light of her recent cardiac issues - Cardiology consult noted, workup ongoing. Plan for a HIDA scan today to further workup and to help better delineate the necessity or indication for cholecystectomy during
this admission. Pending these results would recommend dietary advancement and monitoring of her symptoms. All questions answered.
-- HIDA scan
-- Cardiology consult
-- Dietary advancement pending the above
[2025-07-31 09:19] LABS: APTT 100.2 Sec (23.4-35.0)
[2025-07-31 09:31] LABS: Troponin I 0.272 ng/ml
--- NOTE | 2025-07-31 09:46 | W.PN.HOSP.TC ---
Today's Communication/Plan
-
HIDA scan
Echo
N.p.o., IVF, heparin drip, pain meds
Assessment / Plan
Assessment / Plan
85F with CHF, autoimmune hemolytic anemia, HLD, dementia, DM, p/w abdominal pain, nausea, poor p.o. intake. Patient also developed tachycardia to 220s on admit.
Abdominal pain
Also with nausea associated with eating. This is led to poor p.o. intake.
DDx includes biliary colic, cholecystitis, gastritis. Consider cardiac etiology as well given her tachycardia episode.
NPO, IVF changed to D5 NS
PRN IV pain medication
Empiric Zosyn
General Surgery consulted, HIDA scan pending
SVT
After 6 mg adenosine, HR appeared irregular, concerning for A-fib. Patient then required adenosine 12 mg and Cardizem 10 mg, converted to sinus rhythm.
EKG afterwards shows ST depressions in lateral leads which were not present previously concerning for potential ischemia. Recheck EKG now.
Troponin peaked at 0.29
Patient currently rate controlled in sinus. Continue telemonitoring
Cardiology was consulted, heparin drip was started, echocardiogram is pending
AUSTIN
Suspect prerenal due to poor p.o. intake
IVF as above, monitor creatinine
Chronic CHF, compensated
Continue beta-bahman
holding Lasix, lisinopril, Farxiga, spironolactone due to AUSTIN
DM 2
Holding home Jardiance, metformin, Farxiga while NPO
IVF with D5 NS
SSI/Accu-Chek
A1c is
Dementia
Donepezil
Autoimmune hemolytic anemia
Monitor CBC
Outpatient follow-up
Chronic daily migraine
Follows with [facility]
Continue nortriptyline
Tylenol as needed
Chronic ambulatory dysfunction with frequent falls
history of sacral fracture March 2025
PT/OT/case mgmt
DVT PPx
Heparin drip
Anticipated Discharge: > 48 hours
Subjective/Interval History
-
Date of Service: July 31, 2025
Patient complaining of a headache, no further abdominal pain, nausea/vomiting, no CP/SOB palpitations. Daughter and at bedside
Objective Data
-
Labs:
Laboratory Results
07/31/25 07/31/25 07/31/25
02:05 04:51 04:53
WBC 9.1
Hgb 10.8 L
Hct 31.4 L
Plt Count 194
APTT 53.7 H
Sodium 135
Potassium 3.8
Chloride 101
Carbon Dioxide 26
BUN 43 H
Creatinine 1.2 H
Glucose 78
Calcium 9.1
Total Bilirubin 1.3
AST 27
ALT 23
Alkaline Phosphatase 55
07/31/25 07/31/25
08:55 14:55
WBC
Hgb
Hct
Plt Count
APTT 100.2 H Pending
Sodium
Potassium
Chloride
Carbon Dioxide
BUN
Creatinine
Glucose
Calcium
Total Bilirubin
AST
ALT
Alkaline Phosphatase
Vital Signs:
Vital Signs
Temp Pulse Resp BP Pulse Ox
97.4 F 67 20 110/54 98
07/31/25 07:00 07/31/25 08:30 07/31/25 07:00 07/31/25 08:00 07/31/25 08:30
I&O
07/30/25 07/31/25 08/01/25
06:59 06:59 06:59
Intake Total 418 / 418
Balance 418 / 418
Review of Systems
-
All other systems: Reviewed and negative
Physical Exam
-
General: No Apparent Distress
HEENT: Moist Mucous Membranes, Anicteric and PERRLA
Respiratory: Clear to Auscultation; Negative Wheezes, Rales or Rhonchi
Cardiac: Regular Rhythm and S1/S2; Negative Murmur, Rub or Gallop
GI: Soft, Nontender, Nondistended and Normal Bowel Sounds
Musculoskeletal: No Edema
Skin: Warm and Dry; Negative Rash, Ulcers or Lesions
Neuro: Awake and AO x 3
Hematologic / Lymphatic: No Lymphadenopathy
Psych: Calm
Data Reviewed
-
Ultrasound: Report Reviewed by me, Discussed with Patient and Discussed with Family
Labs: Labs Reviewed by me, Discussed with Patient and Discussed with Family
[2025-07-31 09:58] LABS: Glucose - Point of Care 80 mg/dl (70-99)
[2025-07-31] MEDS: ASPIR LOW (ENTERIC COATED) 81 MG PO (09:58)
[2025-07-31] MEDS: TRUSOPT 2% OPHTHALMIC SOLUTION 1 DROP BOTH EYES ×3 (09:59→22:49)
[2025-07-31] MEDS: TOPROL XL PO (09:59)
[2025-07-31] MEDS: TIMOPTIC 0.5% OPHTHALMIC SOLUTION 1 DROP BOTH EYES ×2 (10:00→19:58)
[2025-07-31] MEDS: TYLENOL 500 MG PO (10:32)
[2025-07-31] MEDS: D5/0.9% SODIUM CHLORIDE 1000 IV (10:36)
[2025-07-31 13:32] LABS: Glucose - Point of Care 100 mg/dl (70-99)
--- NOTE | 2025-07-31 13:35 | CM ---
spoke to pt in room, she lives withher smith in [facility] living at [address]. [address] , no steps. she uses a walker. plan is to return to [address] when medically stable.
--- NOTE | 2025-07-31 16:30 | PTCARENOTE ---
Pt's IV line & satellite project site monitor D/C'd. Discussed D/C instructions w/pt & pt's father. Pt ambulated out w/staff escort w/personal belongings incl cell phone & hair assistant.
[2025-07-31 17:05] LABS: Glucose - Point of Care 102 mg/dl (70-99)
[2025-07-31 18:55] LABS: APTT 128.6 Sec (23.4-35.0)
[2025-07-31] MEDS: ZOSYN IV (19:55)
[2025-07-31] MEDS: TOPROL XL 25 MG PO (19:57)
[2025-07-31] MEDS: ELIQUIS 2.5 MG PO (20:10)
[2025-07-31 22:25] LABS: Glucose - Point of Care 165 mg/dl (70-99)
[2025-07-31] MEDS: XALATAN OPHTHALMIC SOLUTION 1 DROP BOTH EYES (22:49)
[2025-07-31] MEDS: PAMELOR 20 MG PO (22:53)
[2025-07-31] MEDS: LIPITOR 40 MG PO (22:53)
[2025-07-31] MEDS: ARICEPT 10 MG PO (22:53)
[2025-08-01] VITALS (11 sets, daily range): BP systolic 105–149; BP diastolic 48–71; PULSE 65–71; O2SAT 93; BMI 15.1
[2025-08-01] MEDS: D5/0.9% SODIUM CHLORIDE 1000 IV (01:22)
[2025-08-01] MEDS: ZOSYN 50 IV ×2 (01:27→09:46)
[2025-08-01] MEDS: TYLENOL 1000 MG PO (02:08)
[2025-08-01 02:36] LABS: Hematocrit 31.9 % (37.0-47.0); Hemoglobin 11.2 g/dL (12.0-16.0); Mean Corp Hgb Conc. 35.1 g/dL (33.0-37.0); Mean Corpuscular Volume 90.6 fL (81.0-99.0); Nucleated Red Blood Cells % 0 %; Platelet Count 186 10^3/uL (130-400); Red Cell Dist. Width 14.0 % (11.5-14.5)
--- NOTE | 2025-08-01 02:44 | PTCARENOTE ---
Pt. AAOx1-2 this shift, forgetful and disoriented to time/place (especially as night goes on) but pleasant. No complaints of chest or abdominal discomfort, VSS, NSR on the monitor. OOB with assist x 1 & RW; bed alarm on. IVF's infusing as per
order, heparin gtt dc'd at 1999 and Eliquis started. Medicated for headache with Tylenol, will monitor for effectiveness. Pt. resting quietly.
[2025-08-01 03:02] LABS: ALT (SGPT) 20 U/L (0-35); AST (SGOT) 28 U/L (14-36); Albumin 4.1 g/dl (3.5-5.0); Alkaline Phosphatase 53 U/L (38-126); Blood Urea Nitrogen 30 mg/dl (7-17); Calcium 9.2 mg/dl (8.4-10.2); Carbon Dioxide 26 mmol/L (22-30); Chloride 106 mmol/L (98-107); Estimated Creatinine Clearance 20 ml/min; Glucose 148 mg/dl (70-99); Potassium 3.7 mmol/L (3.5-5.1); Sodium 138 mmol/L (135-145); Total Protein 6.3 g/dl (6.3-8.2); eGFR 44.08
[2025-08-01 08:41] LABS: Glucose - Point of Care 156 mg/dl (70-99)
--- NOTE | 2025-08-01 09:34 | W.PN.HOSP.TC ---
Addendum entered and electronically signed by Essence Ward MD 08/01/25 13:47:
for CDI: Severe protein calorie malnutrition
Original Note:
Today's Communication/Plan
-
HR controlled, diet advanced, if tolerating possible DC pending PT/OT eval
Assessment / Plan
Assessment / Plan
85F with CHF, autoimmune hemolytic anemia, HLD, dementia, DM, p/w abdominal pain, nausea, poor p.o. intake. Patient also developed tachycardia to 220s on admit.
Abdominal pain�resolved
Also with nausea associated with eating. This is led to poor p.o. intake.
DDx includes biliary colic, cholecystitis, gastritis. Consider cardiac etiology as well given her tachycardia episode.
diet advanced to solids, IVF changed to D5 NS�if eating will discontinue
PRN pain medication, add PPI
Empiric Zosyn�stopped
General Surgery consulted, doubt GB etiology, HIDA scan negative
A-fib with RVR
After 6 mg adenosine, HR appeared irregular, concerning for A-fib. Patient then required adenosine 12 mg and Cardizem 10 mg, converted to sinus rhythm.
EKG afterwards shows ST depressions in lateral leads which were not present previously concerning for potential ischemia. Recheck EKG shows persistent nonspecific ST changes
Troponin peaked at 0.29
Patient currently rate controlled in sinus. Continue telemonitoring, no further events
Cardiology was consulted, heparin drip was started and changed to oral Eliquis, echocardiogram performed with EF 50 to 55%, no RWMA
Metoprolol has been increased to 25 twice daily for rate control. Discussed care with cardiology team today.
AUSTIN�improved
Suspect prerenal due to poor p.o. intake
IVF as above, monitor creatinine
Chronic CHF, compensated
Continue beta-bahman
holding Lasix, lisinopril, Farxiga, spironolactone due to AUSTIN, will resume stepwise
DM 2
Holding home Jardiance, metformin, Farxiga while inpatient, can resume as outpatient
IVF with D5 NS�stop if eating
SSI/Accu-Chek
A1c is 6.6%
Dementia
Donepezil
Autoimmune hemolytic anemia
Monitor CBC, stable
Outpatient follow-up
Chronic daily migraine
Follows with [facility]
Continue nortriptyline
Tylenol as needed
Chronic ambulatory dysfunction with frequent falls
history of sacral fracture March 2025
PT/OT/case mgmt
DVT PPx
Eliquis
Anticipated Discharge: Within 24 hours
Subjective/Interval History
-
Date of Service: August 01, 2025
Patient feeling okay at the moment, no palpitations, chest pain, shortness of breath, nausea, vomiting. Had vivid dreams overnight. Daughter at bedside, was concerned she was delirious overnight but recognize that it was dreams. Spoke to family
member Griffin on the phone as well at bedside. 51 min spent in patient care today.
Objective Data
-
Labs:
Laboratory Results
08/01/25
02:23
WBC 7.7
Hgb 11.2 L
Hct 31.9 L
Plt Count 186
Sodium 138
Potassium 3.7
Chloride 106
Carbon Dioxide 26
BUN 30 H
Creatinine 1.2 H
Glucose 148 H
Calcium 9.2
Total Bilirubin 1.2
AST 28
ALT 20
Alkaline Phosphatase 53
Vital Signs:
Vital Signs
Temp Pulse Resp BP Pulse Ox
97.9 F 72 18 111/48 99
08/01/25 08:16 08/01/25 08:16 08/01/25 08:16 08/01/25 08:14 08/01/25 08:16
I&O
07/31/25 08/01/25 08/02/25
06:59 06:59 06:59
Intake Total 418 / 418 1080 / 1080
Balance 418 / 418 1080 / 1080
Review of Systems
-
All other systems: Reviewed and negative
Physical Exam
-
General: No Apparent Distress
HEENT: Moist Mucous Membranes, Anicteric and PERRLA
Respiratory: Clear to Auscultation; Negative Wheezes, Rales or Rhonchi
Cardiac: Regular Rhythm and S1/S2; Negative Murmur, Rub or Gallop
GI: Soft, Nontender, Nondistended and Normal Bowel Sounds
Musculoskeletal: No Edema
Skin: Warm and Dry; Negative Rash, Ulcers or Lesions
Neuro: Awake and AO x 3
Hematologic / Lymphatic: No Lymphadenopathy
Psych: Calm
Data Reviewed
-
Ultrasound: Report Reviewed by me, Discussed with Patient and Discussed with Family
Labs: Labs Reviewed by me, Discussed with Patient and Discussed with Family
[2025-08-01] MEDS: NOVOLOG FLEXPEN-LOW RESISTANCE 1 UNITS SC (09:45)
[2025-08-01] MEDS: TRUSOPT 2% OPHTHALMIC SOLUTION 1 DROP BOTH EYES (09:46)
[2025-08-01] MEDS: ELIQUIS 2.5 MG PO (09:46)
[2025-08-01] MEDS: TIMOPTIC 0.5% OPHTHALMIC SOLUTION 1 DROP BOTH EYES (09:46)
[2025-08-01] MEDS: TOPROL XL 25 MG PO (09:46)
[2025-08-01] MEDS: FLUSH (NSS) 2 FLUSH IV (09:47)
[2025-08-01] MEDS: ASPIR LOW (ENTERIC COATED) PO (10:06)
--- NOTE | 2025-08-01 10:22 | W.PN.CD ---
Today's Communication / Plan
-
transition metoprolol to once daily dosing for ease of administration
continue eliquis 2.5mg po bid
asa stopped
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
ok to dc from cardiovascular perspective, will sign off
Impression / Plan
-
I/P: 85F with moderate to severe mitral valve stenosis, severe mitral valve regurgitation, cardiomyopathy (LVEF 30-35%), nonobstructive CAD, PSVT, hypertension, hypercholesterolemia, hemolytic anemia, and dementia who presented to the emergency
department yesterday with right upper quadrant pain.
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 Taylor
Atrial fibrillation with RVR, NEW
- s/p adenosine 6g & 12mg then diltiazem 10mg
- Now in sinus,will transition metoprolol succinate to 50mg qhs for ease of administration.
- Oral Anticoagulation: asa stopped eliquis 2.5mgpo bid
- [id number]: score at least 6 (Heart failure, HTN, age 75 or more, Vascular disease, female gender)
Abnormal troponin, myocardial injury in the setting of atrial arrhythmia
- Chest pain-free
- Peak 0.290
-echo with normal ef and no regional wall motion abnormality
Abnormal EKG
- Lateral ST depression
- Denies chest pain
Abdominal pain, with associated poor oral intake and and nausea
- Concern for biliary colic, GS consulted
Mitral stenosis, moderate to severe-->looked mild on 07/31 echo
Mitral regurgitation, severe--> looked moderate on echo
CAD, non obstructive, chest pain free
PSVT, chronic, continue beta bahman
HTN, chronic, stable
Type II DM, Hgba1c 6.6%
Dementia
TTE :
1. Normal biventricular size and systolic function without regional wall motion abnormality. LVEF 50-55%.
2. Mild aortic regurgitation.
3. Mild mitral stenosis with peak/mean gradient 14/4 at 61 bpm.
4. Moderate mitral regurgitation.
5. Mild to moderate tricuspid regurgitation with normal PASP (28 mmHg).
6. Compared to prior echocardiogram in March 2025, LVEF has improved from 30-35%. Valve gradients and degree of MR have also improved. PASP has decreased from 40 mmHg.
Physical Exam
Vital Signs/Labs
Vital Signs
Temp Pulse Resp BP Pulse Ox
97.9 F 72 18 111/48 99
08/01/25 08:16 08/01/25 08:16 08/01/25 08:16 08/01/25 08:14 08/01/25 08:16
07/31/25 08/01/25 08/02/25
06:59 06:59 06:59
Actual Weight 83 lb 12.41 oz 87 lb 11.904 oz
08/01/25 02:23
08/01/25 02:23
APTT 128.6 Sec (23.4-35.0) H 07/31/25 16:06
Magnesium 2.0 mg/dl (1.6-2.3) 07/30/25 14:23
Triglycerides 77 mg/dl (10-149) 07/31/25 04:53
LDL Cholesterol, Calc 37 mg/dl 07/31/25 04:53
VLDL Cholesterol, Calc 15 mg/dl (0-30) 07/31/25 04:53
HDL Cholesterol 41 mg/dl 07/31/25 04:53
LAB Results
07/30/25 07/30/25 07/31/25
19:53 22:00 02:05
Troponin I 0.054 H* Cancelled 0.290 H* D
07/31/25
08:55
Troponin I 0.272 H*
Physical Exam
Constitutional: No acute distress
Cardiovascular: Rhythm & rate is regular, Pedal edema is absent, JVD pressure is normal and Systolic murmur absent
Respiratory: Respiratory effort normal, Lungs clear to auscul., Wheeze Absent, Crackles Absent and Rhonchi Absent
Neuro/Psych: AO x 3
Data Reviewed
-
Date of Service: August 01, 2025
Medical Decision Making: Review of Case with other Provider (Dr Ward, change bb to once a day)
Medical Tests (PFT, Pathology etc): Discussed with Family (echo findings d/w daughter and father)
--- NOTE | 2025-08-01 10:43 | PN.CDI ---
CDI
- -
CDI:
Physician Documentation Request
Admit Date: 07/30/25 19:02
Dear Doctor Ed,
Please review the following and provide your response in the progress notes.
Clinical Indicators:
- Quality Control Manager note indicates severe protein calorie malnutrition
- Unintentional weight loss >7.5% in 3 months
- Severe muscle loss over clavicle
- BMI 15.1
Based on the above information and your assessment, which of the following most accurately represents the patient's nutritional status?
Severe protein calorie malnutrition
Other (please specify)
[place] Criteria ([facility] Hospitalist 2017)
2 or more criteria must be present for either
non severe or severe malnutrition
Note that the criteria differs related to the
presence of an acute or chronic illness
Acute Illness Chronic Illness
Energy Intake Non Severe: <75% for >7 days Non Severe: <75% for >1 month
Severe: <50% for >5 days Severe: <75% for >1 month
Weight Loss Non Severe: 1-2% over 1 week Non Severe: 5% over 1 month
5% over 1 month 7.5% over 3 months
7.5% over 3 months 10% over 6 months
1 year N/A 20% over 1 year
Severe: >2% over 1 week Severe: >5% over 1 month
>5% over 1 month >7.5% over 3 months
>7.5% over 3 months >10% over 6 months
1 year N/A >20% over 1 year
Body Fat Non Severe: Mild Decrease Non Severe: Mild Loss
Severe: Moderate Decrease Severe: Severe Loss
Muscle Mass Non Severe: Mild Decrease Non Severe: Mild Loss
Severe: Moderate Decrease Severe: Severe Loss
Fluid Accumulation Non Severe: Mild Accumulation Non Severe: Mild Accumulation
Severe: Moderate to severe Severe: Moderate to severe
accumulation accumulation
Reduced Radiation Oncology Nurse Strength Non Severe: N/A Non Severe: N/A
Severe: Measurably reduced Severe: Measurably reduced
Additional criteria that can be used to Determine if Mild or Moderate Malnutrition ([employer] Manual 2018)
Mild Moderate Severe
Albumin gm/dl <3.0 gm/dl <2.5 gm/dl <2.0 gm/dl
Pre Albumin mg/dl <15 gm/dl <10 mg/dl <5.0 mg/dl
BMI <18.5 <17 <16
Use of terms such as suspected, likely, concern for, or probable (associated with a specific diagnosis that is being evaluated, monitored, or treated as if it exists) are acceptable and can be coded in the inpatient setting, when documented at the
time of discharge.
Thank you,
Pat Hawkins RN
CDI Specialist
Please use your independent medical judgment in providing your response.
--- NOTE | 2025-08-01 11:00 | PTCARENOTE ---
Assumed care of pt from prev nsg shift; Pt AAOx1-2, confused/forgetful to time & at times to place. Pt w/no c/o CP or SOB. Pt's VSS w/HR in the 70's & BP 111/48 this AM. Pt is SR w/prol QT on telemetry monitoring. Pt w/IVF infusing as ordered
through patent IV line. Pt w/family at bedside & w/bed alarm in place for pt's safety. Plan of care ongoing.
--- NOTE | 2025-08-01 11:35 | W.PN.GS2 ---
Today's Communication / Plan
-
ADAT
Assessment / Plan
-
85F with suspected possible biliary colic vs ACC now with HIDA showing opacification of gallbladder
AF, nontender on exam
No leukocytosis
LFTs WNL
HIDA negative for cystic duct obstruction
Plan:
ADAT per primary team
No plans nor indication for surgical intervention at this time
Pls call with ?s
Subjective Data
-
Date of Service: August 01, 2025
AFVSS, denies pain, denies nausea
Objective Data
-
Intake and Output
07/31/25 08/01/25 08/02/25
06:59 06:59 06:59
Intake Total 418 / 418 1080 / 1080
Balance 418 / 418 1080 / 1080
Intake:
Oral fluids 240 / 240
IV fluids (Total) 318 / 318 840 / 840
Nss 500 ml @ 40 mls/hr IV . 280 / 280
[id number] [id number] Rx#:[id number]
heparin 38 / 38 840 / 840
IV piggybacks 100 / 100
Other:
Number of approximated LARGE 2
amounts of urine
Vital Signs
Temp Pulse Resp BP Pulse Ox
97.8 F 64 18 105/52 100
08/01/25 10:48 08/01/25 11:00 08/01/25 10:48 08/01/25 10:47 08/01/25 10:48
Lab Results
08/01/25 02:23
08/01/25 02:23
Calcium 9.2 mg/dl (8.4-10.2) 08/01/25 02:23
Magnesium 2.0 mg/dl (1.6-2.3) 07/30/25 14:23
Total Bilirubin 1.2 mg/dl (0.2-1.3) 08/01/25 02:23
AST 28 U/L (14-36) 08/01/25 02:23
ALT 20 U/L (0-35) 08/01/25 02:23
Alkaline Phosphatase 53 U/L (38-126) 08/01/25 02:23
Total Protein 6.3 g/dl (6.3-8.2) 08/01/25 02:23
Albumin 4.1 g/dl (3.5-5.0) 08/01/25 02:23
Physical Exam
-
Gen: NAD
Abd: soft, nt
[2025-08-01 13:45] LABS: Glucose - Point of Care 127 mg/dl (70-99)
[2025-08-01] MEDS: NOVOLOG FLEXPEN-LOW RESISTANCE SC (13:54)
--- NOTE | 2025-08-01 17:13 | PTCARENOTE ---
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 D/C instructions discussed w/pt & pt's daughter. Pt left w/personal belongings including clothing. Pt taken out via WC w/pt's daughter driving her home.
== END 2025-08-01 17:15 | disposition home or self-care (01) | DRG 308 ==
LOC: IVU 19:02
PROVIDERS: Clinical Nurse Specialist Family Health; Emergency Medicine; Surgery Trauma Surgery; ADMITTING PHYSICIAN Hospitalist; ATTENDING PHYSICIAN Internal Medicine; CONSULT PHYSICIAN Student in an Organized Health Care Education/Training Program; CONSULT PHYSICIAN Surgery; EMERGENCY PHYSICIAN Emergency Medicine; FAMILY PHYSICIAN Family Medicine
DX: I48.0 Paroxysmal atrial fibrillation (principal); E43 Unspecified severe protein-calorie malnutrition; D59.10 Autoimmune hemolytic anemia, unspecified; I50.22 Chronic systolic (congestive) heart failure; K80.40 Calculus of bile duct with cholecystitis, unspecified, without obstruction; N17.9 Acute kidney failure, unspecified; Z68.1 Body mass index [BMI] 19.9 or less, adult; I11.0 Hypertensive heart disease with heart failure; E11.9 Type 2 diabetes mellitus without complications; Z79.82 Long term (current) use of aspirin; Z79.84 Long term (current) use of oral hypoglycemic drugs; Z79.899 Other long term (current) drug therapy; Z79.4 Long term (current) use of insulin; R62.7 Adult failure to thrive; G43.909 Migraine, unspecified, not intractable, without status migrainosus; R29.6 Repeated falls; E78.00 Pure hypercholesterolemia, unspecified; E86.9 Volume depletion, unspecified; F02.80 Dementia in other diseases classified elsewhere, unspecified severity, without behavioral disturbance, psychotic disturbance, mood disturbance, and anxiety; G30.9 Alzheimer's disease, unspecified; I25.10 Atherosclerotic heart disease of native coronary artery without angina pectoris; I42.9 Cardiomyopathy, unspecified; I47.10 Supraventricular tachycardia, unspecified
CPT/HCPCS: 76705; 78226; 80053; 80061; 81003; 81015; 82962; 83036; 83690; 83735; 84443; 84484; 85025; 85027; 85730; 87086; 87502; 87811; 93005; 93308; 93321; 93325; 96360; 97162; 97167; 97535; 99285; A9537; J0153